=== PATIENT | female | born 1945 | race Caucasian/White ===

== ENCOUNTER 2019-12-10 09:48 | Outpatient (REF) | payer MEDICARE, SELFPAY ==
--- NOTE | 2019-12-10 | MM_ITS ---
EXAMINATION: MM SCREENING DIGITAL BREAST TOMOSYNTHESIS, BILATERAL CLINICAL INFORMATION: Screening. Asymptomatic. The lifetime risk of breast cancer based on the Tyrer-Cuzick Model is 5%. COMPARISON: Mammography: 07/25/2018, 07/21/2017, 07/19/2016 TECHNIQUE: Digital breast tomosynthesis is performed in both the craniocaudal and mediolateral oblique views along with computer-aided detection (CAD). Synthesized 2D images are generated from the tomosynthesis. FINDINGS: The breasts are heterogeneously dense, which may obscure small masses (ACR BI-RADS breast composition Category c). There are no significant masses, abnormal calcifications, or other abnormalities. The axilla and skin contours are unremarkable. IMPRESSION: No mammographic evidence of malignancy. ASSESSMENT: BI-RADS 1: Negative RECOMMENDATION: Routine annual mammography screening. This patient's information was entered into a reminder system with a target due date for their next mammogram.
== END 2019-12-10 09:49 | disposition home or self-care (01) ==
LOC: HO.MAMMO 09:48
PROVIDERS: PCP Internal Medicine Medical Oncology; Visit Provider Internal Medicine Medical Oncology
DX: Z12.31 Encounter for screening mammogram for malignant neoplasm of breast (principal)
CPT/HCPCS: 77063; 77067; 78014

== ENCOUNTER 2020-05-01 07:57 | Outpatient (REF) | payer MEDICARE, SELFPAY ==
[2020-05-01 11:10] LABS: MANUAL DIFF FLAG NO
[2020-05-01 11:31] LABS: Basophils Percent Auto 0.5 % (0-2); Eosinophils Percent Auto 0.3 % (0-4); Hematocrit 43.3 % (37-47); Hemoglobin 14.1 g/dl (12.0-16.0); Imm Gran Abs Auto 0.02 X10*3/uL (0.00-0.03); Imm Gran Pct Auto 0.3 % (0.0-0.4); Lymphocytes Absolute Auto 2.6 X10*3/uL (1.2-4.9); Lymphocytes Percent Auto 39.2 % (20-40); Mean Corpuscular HGB Conc 32.6 g/dl (31.0-35.0); Mean Corpuscular Hemoglobin 30.1 pg (27.0-33.0); Mean Corpuscular Volume 92.5 fL (80-98); Mean Platelet Volume 9.1 fL (9.4-12.3); Monocytes Absolute Auto 0.4 X10*3/uL (0.1-1.2); Monocytes Percent Auto 5.3 % (2-11); Neutrophils Absolute Auto 3.6 X10*3/uL (2.0-8.3); Neutrophils Percent Auto 54.4 % (45-73); Platelet Count 357 X10*3/uL (160-400); Red Blood Count 4.68 X10*6/uL (4.20-5.50); Red Cell Distribution Width 12.7 % (11.0-16.0); White Blood Count 6.6 X10*3/uL (4.8-10.8)
[2020-05-01 11:46] LABS: Cholesterol 227 mg/dL; HDL Cholesterol 70 mg/dL; LDL Cholesterol Calculated 86 mg/dl; Triglycerides 355 mg/dL
[2020-05-01 12:12] LABS: Free T4 (Free Thyroxine) 0.93 ng/dL (0.71-1.85); Thyroid Stimulating Hormone 4.17 uIU/mL (0.32-4.0)
== END 2020-05-01 07:58 | disposition home or self-care (01) ==
LOC: HO.HMGCLDS 07:57
PROVIDERS: PCP Internal Medicine Medical Oncology; Visit Provider Internal Medicine Medical Oncology
DX: E03.9 Hypothyroidism, unspecified (principal); E78.5 Hyperlipidemia, unspecified
CPT/HCPCS: 36415; 80061; 84439; 84443; 85025

== ENCOUNTER 2021-05-17 07:43 | Outpatient (REF) | payer MEDICARE, SELFPAY ==
[2021-05-17 11:35] LABS: MANUAL DIFF FLAG NO
[2021-05-17 11:49] LABS: Basophils Absolute Auto 0.1 X10*3/uL (0.0-0.2); Basophils Percent Auto 0.7 % (0-2); Eosinophils Absolute Auto 0.1 X10*3/uL (0.0-0.4); Eosinophils Percent Auto 0.7 % (0-4); Hematocrit 41.2 % (37.0-47.0); Hemoglobin 13.1 g/dl (12.0-16.0); Imm Gran Abs Auto 0.01 X10*3/uL (0.00-0.03); Imm Gran Pct Auto 0.1 % (0.0-0.4); Lymphocytes Absolute Auto 2.6 X10*3/uL (1.2-4.9); Lymphocytes Percent Auto 38.8 % (20-40); Mean Corpuscular HGB Conc 31.8 g/dl (31.0-35.0); Mean Corpuscular Hemoglobin 28.7 pg (27.0-33.0); Mean Corpuscular Volume 90.2 fL (80.0-98.0); Mean Platelet Volume 9.1 fL (9.4-12.3); Monocytes Absolute Auto 0.4 X10*3/uL (0.1-1.2); Neutrophils Absolute Auto 3.6 x10*3/uL (2.0-8.3); Neutrophils Percent Auto 53.7 % (45-73); Platelet Count 352 X10*3/uL (160-400); Red Blood Count 4.57 X10*6/uL (4.20-5.50); Red Cell Distribution Width 13.2 % (11.0-16.0); White Blood Count 6.7 X10*3/uL (4.8-10.8)
[2021-05-17 12:14] LABS: Alanine Aminotransferase 18 U/L (0-31); Alkaline Phosphatase 84 U/L (39-117); Anion Gap 16 (12-20); Aspartate Amino Transferase 20 U/L (5-31); Bilirubin Total 0.6 mg/dL (0.0-1.0); Blood Urea Nitrogen 10 mg/dL (9-16); Calcium 9.2 mg/dL (8.4-10.2); Carbon Dioxide 26 mmol/L (22-29); Chloride 105 mmol/L (96-108); Cholesterol 218 mg/dL; Estimated Glomerular Filt Rate > 60; Glucose Fasting 99 mg/dL (60-99); HDL Cholesterol 67 mg/dL; LDL Cholesterol Calculated 81 mg/dl; Potassium 4.1 mmol/L (3.3-5.1); Sodium 143 mmol/L (135-145); Triglycerides 350 mg/dL
[2021-05-17 12:36] LABS: Free T4 (Free Thyroxine) 0.91 ng/dL (0.71-1.85); Thyroid Stimulating Hormone 4.14 uIU/mL (0.32-4.0)
== END 2021-05-17 07:44 | disposition home or self-care (01) ==
LOC: HO.HMGCLDS 07:43
PROVIDERS: Visit Provider Internal Medicine Medical Oncology
DX: Z00.00 Encounter for general adult medical examination without abnormal findings (principal); E03.9 Hypothyroidism, unspecified
CPT/HCPCS: 36415; 80053; 80061; 84439; 84443; 85025

== ENCOUNTER 2021-06-15 09:26 | Outpatient (REF) | payer MEDICARE, SELFPAY ==
--- NOTE | ~2021-06-15 | MM_ITS ---
EXAMINATION: MM SCREENING DIGITAL BREAST TOMOSYNTHESIS, BILATERAL CLINICAL INFORMATION: Screening. Asymptomatic. The lifetime risk of breast cancer based on the Tyrer-Cuzick Model is 7%. COMPARISON: Mammography: 12/10/2019, 07/25/2018, 07/21/2017 TECHNIQUE: Digital breast tomosynthesis is performed in both the craniocaudal and mediolateral oblique views along with computer-aided detection (CAD). Synthesized 2D images are generated from the tomosynthesis. FINDINGS: The breasts are heterogeneously dense, which may obscure small masses (ACR BI-RADS breast composition Category c). There are no significant masses, abnormal calcifications, or other abnormalities. Parenchymal pattern is similar to prior studies. There is no developing density or architectural abnormality. No significant changes. MM/MM tomosynthesis screening BI IMPRESSION: No mammographic evidence of malignancy. ASSESSMENT: BI-RADS 1: Negative RECOMMENDATION: Routine annual mammography screening. This patient's information was entered into a reminder system with a target due date for their next mammogram.
== END 2021-06-15 09:27 | disposition home or self-care (01) ==
LOC: HO.MAMMO 09:26
PROVIDERS: PCP Internal Medicine Medical Oncology; Visit Provider Internal Medicine Medical Oncology
DX: Z12.31 Encounter for screening mammogram for malignant neoplasm of breast (principal)
CPT/HCPCS: 77063; 77067

== ENCOUNTER 2022-05-23 07:23 | Outpatient (REF) | payer MEDICARE, SELFPAY ==
[2022-05-23 11:36] LABS: MANUAL DIFF FLAG NO
[2022-05-23 11:43] LABS: Basophils Absolute Auto 0.1 X10*3/uL (0.0-0.2); Basophils Percent Auto 0.8 % (0-2); Eosinophils Absolute Auto 0.1 X10*3/uL (0.0-0.4); Eosinophils Percent Auto 0.9 % (0-4); Hematocrit 42.1 % (37.0-47.0); Hemoglobin 13.8 g/dl (12.0-16.0); Imm Gran Abs Auto 0.01 X10*3/uL (0.00-0.03); Imm Gran Pct Auto 0.2 % (0.0-0.4); Lymphocytes Absolute Auto 2.6 X10*3/uL (1.2-4.9); Lymphocytes Percent Auto 39.2 % (20-40); Mean Corpuscular HGB Conc 32.8 g/dl (31.0-35.0); Mean Corpuscular Hemoglobin 30.1 pg (27.0-33.0); Mean Corpuscular Volume 91.7 fL (80.0-98.0); Mean Platelet Volume 9.4 fL (9.4-12.3); Monocytes Absolute Auto 0.4 X10*3/uL (0.1-1.2); Monocytes Percent Auto 6.3 % (2-11); Neutrophils Absolute Auto 3.5 x10*3/uL (2.0-8.3); Neutrophils Percent Auto 52.6 % (45-73); Platelet Count 324 X10*3/uL (160-400); Red Blood Count 4.59 X10*6/uL (4.20-5.50); Red Cell Distribution Width 12.6 % (11.0-16.0); White Blood Count 6.6 X10*3/uL (4.8-10.8)
[2022-05-23 12:52] LABS: Alanine Aminotransferase 13 U/L (0-31); Alkaline Phosphatase 81 U/L (39-117); Anion Gap 15 (12-20); Aspartate Amino Transferase 17 U/L (5-31); Bilirubin Total 0.8 mg/dL (0.0-1.0); Blood Urea Nitrogen 11 mg/dL (9-16); Carbon Dioxide 27 mmol/L (22-29); Chloride 105 mmol/L (96-108); Cholesterol 217 mg/dL; Estimated Glomerular Filt Rate > 60; Glucose Fasting 87 mg/dL (60-99); HDL Cholesterol 67 mg/dL; LDL Cholesterol Calculated 93 mg/dl; Potassium 3.9 mmol/L (3.3-5.1); Sodium 143 mmol/L (135-145); Total Protein 6.5 g/dL (6.5-8.0); Triglycerides 286 mg/dL
== END 2022-05-23 07:24 | disposition home or self-care (01) ==
LOC: HO.HMGCLDS 07:23
PROVIDERS: PCP Internal Medicine Medical Oncology; Visit Provider Internal Medicine Medical Oncology
DX: E03.9 Hypothyroidism, unspecified (principal); M85.80 Other specified disorders of bone density and structure, unspecified site; E66.3 Overweight; E78.5 Hyperlipidemia, unspecified
CPT/HCPCS: 36415; 80053; 80061; 82306; 85025

== ENCOUNTER 2023-04-06 06:18 | Outpatient (REF) | payer MEDICARE, SELFPAY ==
[2023-04-12 19:49] LABS: Acetylcholine Receptor Binding <0.30 nmol/L
[2023-04-12 20:04] LABS: Acetylcholine Recept. Blocking <15 (<15)
== END 2023-04-06 06:19 | disposition home or self-care (01) ==
LOC: HO.LAB 06:18
PROVIDERS: PCP Internal Medicine Medical Oncology; Visit Provider Psychiatry & Neurology Neurology
DX: H53.2 Diplopia (principal)
CPT/HCPCS: 36415; 86041; 86042; 86043

== ENCOUNTER 2023-05-22 08:51 | Outpatient (REF) | payer MEDICARE, SELFPAY | END 2023-05-22 08:52 | disposition home or self-care (01) | LOC: HO.MAMMO 08:51 | PROVIDERS: PCP Internal Medicine Medical Oncology; Visit Provider Internal Medicine Medical Oncology | DX: Z12.31 Encounter for screening mammogram for malignant neoplasm of breast (principal) | CPT/HCPCS: 77063; 77067 ==

== ENCOUNTER → 2023-05-22 09:15 | Outpatient (BNV) | payer MEDICARE, SELFPAY | PROVIDERS: PCP Internal Medicine Medical Oncology; Visit Provider Radiology Diagnostic Radiology | DX: Z12.31 Encounter for screening mammogram for malignant neoplasm of breast (principal) | CPT/HCPCS: 77063; 77067 ==

== ENCOUNTER 2023-05-25 06:07 | Outpatient (REF) | payer MEDICARE, SELFPAY ==
[2023-05-25 06:16] LABS: MANUAL DIFF FLAG NO
[2023-05-25 07:32] LABS: Basophils Absolute Auto 0.1 X10*3/uL (0.0-0.2); Basophils Percent Auto 0.9 % (0-2); Eosinophils Absolute Auto 0.1 X10*3/uL (0.0-0.4); Eosinophils Percent Auto 0.9 % (0-4); Hematocrit 37.1 % (37.0-47.0); Hemoglobin 12.1 g/dl (12.0-16.0); Imm Gran Abs Auto 0.02 X10*3/uL (0.00-0.03); Imm Gran Pct Auto 0.3 % (0.0-0.4); Lymphocytes Absolute Auto 2.9 X10*3/uL (1.2-4.9); Lymphocytes Percent Auto 43.4 % (20-40); Mean Corpuscular HGB Conc 32.6 g/dl (31.0-35.0); Mean Corpuscular Hemoglobin 28.5 pg (27.0-33.0); Mean Corpuscular Volume 87.5 fL (80.0-98.0); Mean Platelet Volume 8.9 fL (9.4-12.3); Monocytes Absolute Auto 0.5 X10*3/uL (0.1-1.2); Neutrophils Absolute Auto 3.2 x10*3/uL (2.0-8.3); Neutrophils Percent Auto 47.5 % (45-73); Platelet Count 331 X10*3/uL (160-400); Red Blood Count 4.24 X10*6/uL (4.20-5.50); White Blood Count 6.7 X10*3/uL (4.8-10.8)
[2023-05-25 07:48] LABS: Alanine Aminotransferase 14 U/L (0-31); Albumin Level 3.7 g/dL (3.5-5.0); Alkaline Phosphatase 76 U/L (39-117); Anion Gap 13 (12-20); Aspartate Amino Transferase 15 U/L (5-31); Bilirubin Total 0.5 mg/dL (0.0-1.0); Blood Urea Nitrogen 12 mg/dL (9-16); Calcium 8.9 mg/dL (8.4-10.2); Carbon Dioxide 27 mmol/L (22-29); Chloride 107 mmol/L (96-108); Cholesterol 199 mg/dL (<200); Estimated Glomerular Filt Rate > 60; Glucose Fasting 86 mg/dL (60-99); HDL Cholesterol 74 mg/dL (>40); LDL Cholesterol Calculated 88 mg/dL (<100); Sodium 143 mmol/L (135-145); Total Protein 6.6 g/dL (6.5-8.0); Triglycerides 187 mg/dL (<150)
[2023-05-25 07:52] LABS: Thyroid Stimulating Hormone 4.35 uIU/mL (0.32-4.0)
== END 2023-05-25 06:08 | disposition home or self-care (01) ==
LOC: HO.LAB 06:07
PROVIDERS: PCP Internal Medicine Medical Oncology; Visit Provider Internal Medicine Medical Oncology
DX: Z00.00 Encounter for general adult medical examination without abnormal findings (principal); E03.9 Hypothyroidism, unspecified; E78.5 Hyperlipidemia, unspecified; E66.3 Overweight
CPT/HCPCS: 36415; 80053; 80061; 84443; 85025

== ENCOUNTER 2023-06-13 06:08 | Outpatient (REF) | payer MEDICARE, SELFPAY ==
[2023-06-14 09:19] LABS: Lyme Abs Screen <0.90 index
== END 2023-06-13 06:09 | disposition home or self-care (01) ==
LOC: HO.LAB 06:08
PROVIDERS: PCP Internal Medicine Medical Oncology; Visit Provider Internal Medicine Medical Oncology
DX: T14.8XXA Other injury of unspecified body region, initial encounter (principal); W57.XXXA Bitten or stung by nonvenomous insect and other nonvenomous arthropods, initial encounter; Y93.9 Activity, unspecified; Y92.9 Unspecified place or not applicable; Y99.9 Unspecified external cause status
CPT/HCPCS: 36415; 86617; 86618

== ENCOUNTER 2023-07-01 23:30 | Inpatient (IN) | payer MEDICARE, SELFPAY ==
--- NOTE | ~2023-07-01 | CT_ITS ---
EXAMINATION: CT ABDOMEN AND PELVIS WITH CONTRAST CLINICAL INFORMATION: Pain. History of Crohn's disease. Concern for bowel obstruction. COMPARISON: None available. TECHNIQUE: Multidetector volumetric images were obtained from the superior aspect of the liver through the pubic symphysis following administration 85 mL of Omnipaque 350 intravenous contrast. Sagittal and coronal reformatted images were obtained on the technologist's workstation. Oral contrast: No This CT examination was performed using dose optimization techniques as appropriate, variously including the following: *Automated exposure control *Adjustment of mA and/or kV according to patient size (this includes techniques or standardized protocols for targeted exams where dose is matched to indication/reason for exam; i.e. extremities or head) *Use of iterative reconstruction technique DLP: 477 mGy-cm FINDINGS: LUNG BASES: There is scarring and/or subsegmental atelectasis at the right lung base. LIVER, GALLBLADDER, AND BILIARY TREE: There are multiple scattered hepatic hypodensities measuring up to 2.6 cm left lobe the liver likely multiple cysts. There is no intrahepatic biliary duct dilatation. The gallbladder is unremarkable with no evidence of radiopaque gallstones, gallbladder wall thickening, or obvious pericholecystic inflammatory changes. PANCREAS: Unremarkable. SPLEEN: Unremarkable. ADRENAL GLANDS: Unremarkable. KIDNEYS AND URETERS: The kidneys are normal in size, shape, and attenuation. No hydronephrosis, hydroureter, or calculi seen. No perinephric stranding. There are a few scattered bilateral subcentimeter hypodensities too small to characterize but likely small cysts. BLADDER: Unremarkable. GASTROINTESTINAL TRACT: There are distended/dilated mid to distal small bowel loops containing fluid and some stool-like material distally extending to the level of a thickened terminal small bowel within the pelvis. The appendix is not identified. ABDOMINAL WALL: No significant hernia is appreciated. LYMPH NODES: Normal. VASCULAR: Unremarkable. PELVIC VISCERA: Pelvic organs are unremarkable. There is a small amount of free fluid within the pelvis. OSSEOUS STRUCTURES: There is diffuse thoracolumbar disc degenerative change. CT/CT abdomen pelvis w IV con IMPRESSION: 1. Findings consistent with partial distal small bowel obstruction with transition point in the pelvis. There is a thickened terminal small bowel loop within the pelvis likely secondary to patient's known Crohn's disease.. 2. Multiple hepatic hypodensities likely cysts. 3. Small amount of free fluid within the pelvis. Fleischner guidelines were followed.
[2023-07-01] MEDS: Ondansetron ODT 4 MG TAB.RAPDIS TRANSLINGU (23:39)
[2023-07-01 23:40] VITALS: BP 134/64; PULSE 89; RESP 16; TEMP 36.2; O2SAT 99; BMI 27.4
[2023-07-01 23:51] LABS: Basophils Percent Auto 0.4 % (0-2); Eosinophils Percent Auto 0.3 % (0-4); Hematocrit 45.6 % (37.0-47.0); Hemoglobin 14.9 g/dl (12.0-16.0); Imm Gran Abs Auto 0.02 X10*3/uL (0.00-0.03); Imm Gran Pct Auto 0.2 % (0.0-0.4); Lymphocytes Absolute Auto 0.4 X10*3/uL (1.2-4.9); Lymphocytes Percent Auto 3.2 % (20-40); MANUAL DIFF FLAG NO; Mean Corpuscular HGB Conc 32.7 g/dl (31.0-35.0); Mean Corpuscular Hemoglobin 27.7 pg (27.0-33.0); Mean Corpuscular Volume 84.8 fL (80.0-98.0); Mean Platelet Volume 8.8 fL (9.4-12.3); Monocytes Absolute Auto 0.8 X10*3/uL (0.1-1.2); Monocytes Percent Auto 6.9 % (2-11); Neutrophils Absolute Auto 9.6 x10*3/uL (2.0-8.3); Platelet Count 433 X10*3/uL (160-400); Red Blood Count 5.38 X10*6/uL (4.20-5.50); Red Cell Distribution Width 13.6 % (11.0-16.0); White Blood Count 10.8 X10*3/uL (4.8-10.8)
[2023-07-02] VITALS (9 sets, daily range): BP systolic 95–117; BP diastolic 46–57; PULSE 82–88; RESP 14–20; TEMP 36.3–36.9; O2SAT 93–96; BMI 27.4
--- NOTE | 2023-07-02 | ED.NAVMDI ---
HPI - Nausea/Vomiting/Diarrhea General Chief complaint: Nausea/Vomiting/Diarrhea Stated complaint: vomiting Time Seen by Provider: 07/01/23 23:47 Source: patient and family Mode of arrival: ambulatory Limitations: no limitations History of Present Illness HPI Narrative: Patient comes to the emergency room accompanied by her . Patient states that for the last 7 hours, patient has had constant abdominal pain in the epigastric/periumbilical area. Patient has been vomiting every 15-20 minutes for the last 6 hours. Patient denies fever chills. Patient states that 4 years ago she had a surgery for Crohn's disease. Patient denies any hematuria or dysuria. Patient states that she believes she has not passed gas for a few hours. Related Data Allergies Allergy/AdvReac Type Severity Reaction Status Date / Time No Known Allergies Allergy Verified 07/01/23 23:42 Review of Systems Review of Systems: Constitutional : No Weight loss, No Fever, No Chills, No Night Sweats, No Fatigue, No Malaise ENT/Mouth : No Hearing loss, No Ear Pain, No Nasal Congestion, No Sinus Pain, No Hoarseness, No sore throat, No Rhinorrhea, No Swallowing Difficulty Eyes: No Eye Pain, No Swelling, No Redness, No Foreign Body, No Discharge, No Vision Changes Cardiovascular : No Chest Pain, No SOB, No Dyspnea on Exertion, No Orthopnea, No Edema, No Palpitations Respiratory : No Cough, No Sputum, No Wheezing, No Smoke Exposure, No Dyspnea Gastrointestinal : Complaining of nausea and vomiting, no diarrhea or constipation, complaining of periumbilical pain Genitourinary : no irregular bleeding, No Dysuria, No Urinary Frequency, No Hematuria, No Urinary Incontinence, No Urgency, No Flank Pain, No Urinary Flow Changes, No Hesitancy Musculoskeletal : No joint pain, No Myalgias, No Joint Swelling Skin : No Skin Lesions, No rash Neuro : No Weakness, No Numbness, No Paresthesias, No Loss of Consciousness, No Dizziness, No Headache Psych : No Anxiety/Panic, No Depression, No SI/HI/AH/VH, No Social Issues, Heme/Lymph: No Bruising, No Bleeding,No Lymphadenopathy Endocrine : No Polyuria, No Polydipsia, No Temperature Intolerance PMFSH Past Medical History Medical History Crohn's disease Surgical History (Updated 07/02/23 @ 00:01 by Marielena Riley MD) History of appendectomy Social History Social History Advance Directives: Yes Advance Directives Information Provided: No Advance Directives on File: No Do you have a plan to hurt others: No Plan Physical Exam Vital Signs: Vital Signs: Last Vital Signs Temp 97.1 F 07/01/23 23:40 Pulse 89 07/01/23 23:40 Resp 18 07/02/23 00:29 BP 134/64 07/01/23 23:40 Pulse Ox 99 07/01/23 23:40 O2 Del Method Room Air 07/01/23 23:40 BMI result Body Mass Index 27.4 Const: Other: Appearance: Alert. Oriented X3. No acute distress. Eyes: Pupils equal, round and reactive to light. ENT: Pharynx normal. Neck: Normal inspection. Neck supple. No lymph nodes noted. No crepitus CVS: Normal heart rate and rhythm. Pulses normal. Normal S1 and S2 Respiratory: No respiratory distress. Breath sounds normal. No Wheezing. No rales Abdomen: Soft, discomfort to palpation in the periumbilical area, no rebound, no guarding Skin: Skin warm and dry. Normal skin color. Normal skin turgor. Extremities: No lower extremity edema. No Lacerations. No Rash Neuro: Oriented X 3. No motor deficit. No sensory deficit. Moving all extremities. No slurred speech. CN 2 through 12 grossly intact Psych: calm, cooperative, normal affect Course Course Course Narrative: -patient receiving IV fluids, already received p.o. Zofran. Patient now getting IV Compazine, morphine -CT scan of the abdomen pending Medications Administered Discontinued Medications Generic Name Dose Route Start Last Admin Trade Name Freq PRN Reason Stop Dose Admin Sodium Chloride 1,000 mls @ 999 mls/hr 07/01/23 23:56 07/02/23 00:37 Ns IVCONT 07/02/23 00:56 999 mls/hr .Q1H1M ONE Administration Iohexol 85 ml 07/02/23 00:51 07/02/23 00:51 Iohexol 350 Mg/Ml 100 Ml Infus..Btl IV 07/02/23 00:52 85 ml ONCE ONE Administration Morphine Sulfate 4 mg 07/01/23 23:56 07/02/23 00:29 Morphine Sulfate 4 Mg/Ml Cartridge IVPUSH 07/01/23 23:57 4 mg ONCE ONE Administration Protocol Ondansetron HCl 4 mg 07/01/23 23:36 07/01/23 23:39 Ondansetron Odt 4 Mg Tab.Rapdis TRANSLINGU 07/01/23 23:37 4 mg ONCE ONE Administration Prochlorperazine Edisylate 10 mg 07/01/23 23:56 07/02/23 00:29 Prochlorperazine Edisylate 10 Mg/2 Ml Vial IVPUSH 07/01/23 23:57 10 mg ONCE ONE Administration Medical Decision Making Medical Decision Making [facility] Narrative: -my interpretation of labs: Normal hematology, chemistry shows an anion gap that is slightly elevated, patient receiving IV fluids. -my interpretation of CT scan of the abdomen: Multiple cysts, seems that there is a small-bowel obstruction -radiology report: Partial SBO -patient states that she feels much better after IV medication treatment. But still has pain, patient given 1 more dose of morphine. I discussed the patient with Dr. Jean from the surgery team, patient being admitted Differential Diagnosis Differential Diagnoses: The differential diagnosis associated with the presentation includes (Crohn's exacerbation, a small bowel obstruction, diverticulitis) Admission/Observation Consideration of admission/observation: Escalation of care including admission/observation considered Consult Healthcare Provider Management of the patient was discussed with: Hospitalist Lab Data [facility] Lab Attestation statement: I reviewed the patient's lab results. 07/01/23 23:45 07/01/23 23:45 Labs: Lab Results 07/01/23 Range/Units 23:45 WBC 10.8 (4.8-10.8) X10*3/uL RBC 5.38 D (4.20-5.50) X10*6/uL Hgb 14.9 D (12.0-16.0) g/dl Hct 45.6 D (37.0-47.0) % MCV 84.8 (80.0-98.0) fL MCH 27.7 (27.0-33.0) pg MCHC 32.7 (31.0-35.0) g/dl RDW 13.6 (11.0-16.0) % Plt Count 433 H D (160-400) X10*3/uL MPV 8.8 L (9.4-12.3) fL Immature Gran % (Auto) 0.2 (0.0-0.4) % Neut % (Auto) 89.0 H (45-73) % Lymph % (Auto) 3.2 L (20-40) % [place] % (Auto) 6.9 (2-11) % Eos % (Auto) 0.3 (0-4) % Baso % (Auto) 0.4 (0-2) % Lymph # (Auto) 0.4 L (1.2-4.9) X10*3/uL [place] # (Auto) 0.8 (0.1-1.2) X10*3/uL Eos # (Auto) 0.0 (0.0-0.4) X10*3/uL Baso # (Auto) 0.0 (0.0-0.2) X10*3/uL Abs Immat Gran (auto) 0.02 (0.00-0.03) X10*3/uL Absolute Neuts (auto) 9.6 H (2.0-8.3) x10*3/uL Absolute Nucleated RBC 0.000 (0.0-0.012) X10*3/uL Nucleated RBC % (auto) 0.0 (0.0-0.2) /100WBC Sodium 141 (135-145) mmol/L Potassium 4.1 (3.3-5.1) mmol/L Chloride 99 (96-108) mmol/L Carbon Dioxide 23 (22-29) mmol/L Anion Gap 23 H (12-20) BUN 17 H (9-16) mg/dL Creatinine 1.08 (0.5-1.4) mg/dL Estim Creat Clear Calc 40.6 Estimated GFR 49 Random Glucose 201 H (60-115) mg/dL Calcium 9.9 D (8.4-10.2) mg/dL Total Bilirubin 0.9 (0.0-1.0) mg/dL AST 18 (5-31) U/L ALT 16 (0-31) U/L Alkaline Phosphatase 92 (39-117) U/L Total Protein 7.8 (6.5-8.0) g/dL Albumin 4.4 (3.5-5.0) g/dL Lipase 32 (8-78) U/L Independent Interpretation I performed an independent interpretation of an: CT Scan Radiology Impression Discussion of test interpretation with radiology: I have reviewed the radiologist's reading. Radiologist Impression: FINDINGS: LUNG BASES: There is scarring and/or subsegmental atelectasis at the right lung base. LIVER, GALLBLADDER, AND BILIARY TREE: There are multiple scattered hepatic hypodensities measuring up to 2.6 cm left lobe the liver likely multiple cysts. There is no intrahepatic biliary duct dilatation. The gallbladder is unremarkable with no evidence of radiopaque gallstones, gallbladder wall thickening, or obvious pericholecystic inflammatory changes. PANCREAS: Unremarkable. SPLEEN: Unremarkable. ADRENAL GLANDS: Unremarkable. KIDNEYS AND URETERS: The kidneys are normal in size, shape, and attenuation. No hydronephrosis, hydroureter, or calculi seen. No perinephric stranding. There are a few scattered bilateral subcentimeter hypodensities too small to characterize but likely small cysts. BLADDER: Unremarkable. GASTROINTESTINAL TRACT: There are distended/dilated mid to distal small bowel loops containing fluid and some stool-like material distally extending to the level of a thickened terminal small bowel within the pelvis. The appendix is not identified. ABDOMINAL WALL: No significant hernia is appreciated. LYMPH NODES: Normal. VASCULAR: Unremarkable. PELVIC VISCERA: Pelvic organs are unremarkable. There is a small amount of free fluid within the pelvis. OSSEOUS STRUCTURES: There is diffuse thoracolumbar disc degenerative change. CT/CT abdomen pelvis w IV con IMPRESSION: 1. Findings consistent with partial distal small bowel obstruction with transition point in the pelvis. There is a thickened terminal small bowel loop within the pelvis likely secondary to patient's known Crohn's disease.. 2. Multiple hepatic hypodensities likely cysts. 3. Small amount of free fluid within the pelvis. Critical Care Time Critical Care Time Critical Care Time: Yes Total Critical Care Time: 75 Attestation: I have personally provided critical care time. Time includes review of lab data, radiology results, discussion with consultants, and monitoring for potential decompensation. Intervention performed as documented. Discharge Plan Discharge Clinical Impression: Partial obstruction of small intestine Patient Disposition: Admitted As Inpatient Print Language: [place]ian
--- OUTSIDE RECORDS SUMMARY | 2023-07-02 00:05 | XMS_ITS | Patient Health Record ---
Author Organization Jeff Carias III, MD Address [address] [place] [address] Care Team Providers Care Account Assistant Name Role Phone Jeff Carias Primary Care Provider ALLERGIES Allergen (clinical drug ingredient) Drug/Non Drug Allergy documented on EMR Reaction Allergy Type Onset Date Status No Known Drug Allergy Unknown Drug Allergy Active RESULTS Component Value Reference Range Notes MM tomosynthesis screening B I (Not yet reviewed by provider) Interpretation: Performing Lab: Notes/Report: [address] [place] [address] Mammography Report Signed with Addenda Patient: Oriana Hinds MR#: [id number] 31 : 1945 Acct:[id number] Age/Sex: 77 / F ADM Date: 05/22/23 Loc: HO.MAMMO Attending Dr: Jeff Carias MD Ordering Physician: Jeff Carias MD Results: 1Negativ e Date of Service: 05/22/23 Follow Up: 1 Year From Orig ina Mammogram Procedure(s): MM tomosynthesis screening BI Accession Number(s): [id number] cc: Jeff Carias MD ADDENDUM ADDENDUM: Due to a software issue, this mammogram has been reviewed a second time. The findings and recommendations remain the same. OVERALL ASSESSMENT: BI-RADS 1 - Negative RECOMMENDATION: 1 year F/U Addendum Dictated By: Suad Luu MD Addendum Signed By: <Electronically signed by Suad Luu MD in OV> 06/05/23 1547 Addendum Cosigned By: DD/ TD/TT: / EXAMINATION: MM SCREENING DIGITAL BREAST TOMOSYNTHESIS, BILATERAL CLINICAL INFORMATION: Screening. Asymptomatic. COMPARISON: Mammography: This study is compared with prior exams dating back to 2018. TECHNIQUE: Digital breast tomosynthesis is performed in both the craniocaudal and mediolateral oblique views along with computer-aided detection (CAD). Synthesized 2D images are generated from the tomosynthesis. FINDINGS: The breasts are heterogeneously dense, which may obscure small masses (ACR BI-RADS breast composition Category c). There are no significant masses, abnormal calcifications, or other abnormalities. MM/MM tomosynthesis screening BI IMPRESSION: No mammographic evidence of malignancy. ASSESSMENT: BI-RADS BI-RADS 1 - Negative RECOMMENDATION: Routine annual mammography screening. 1 year F/U This examination should not preclude the clinical evaluation of a suspicious palpable abnormality. This patient's information was entered into a reminder system with a target due date for their next mammogram. Dictated By: Suad Luu MD Signed By: <Electronically signed by Suad Luu MD in OV> 06/05/23 1104 DD/ 0915 TD/TT: Black Pickler: Complete Blood Count Auto Di ff Reviewed date:05/27/2023 01:40:45 PM Interpretation: Performing Lab:[facility], [address] [place] [phone] Notes/Report: White Blood Count 6.7 4.8-10.8 X10*3/uL Red Blood Count 4.24 4.20-5.50 X10*6/uL Hemoglobin 12.1 12.0-16.0 g/dl Hematocrit 37.1 37.0-47.0 % Mean Corpuscular Volume 87.5 80.0-98.0 fL Mean Corpuscular Hemoglobin 28.5 27.0-33.0 pg Mean Corpuscular HGB Conc 32.6 31.0-35.0 g/dl Red Cell Distribution Width 13.0 11.0-16.0 % Platelet Count 331 160-400 X10*3/uL Mean Platelet Volume 8.9 9.4-12.3 fL Neutrophils Percent Auto 47.5 45-73 % Imm Gran Pct Auto 0.3 0.0-0.4 % Lymphocytes Percent Auto 43.4 20-40 % Monocytes Percent Auto 7.0 2-11 % Eosinophils Percent Auto 0.9 0-4 % Basophils Percent Auto 0.9 0-2 % NRBC Pct Auto 0.0 0.0-0.2 /100WBC Neutrophils Absolute Auto 3.2 2.0-8.3 x10*3/u L Imm Gran Abs Auto 0.02 0.00-0.03 X10*3/uL Lymphocytes Absolute Auto 2.9 1.2-4.9 X10*3/u L Monocytes Absolute Auto 0.5 0.1-1.2 X10*3/uL Eosinophils Absolute Auto 0.1 0.0-0.4 X10*3/u L Basophils Absolute Auto 0.1 0.0-0.2 X10*3/uL NRBC Abs Auto 0.000 0.0-0.012 X10*3/uL Comprehensive [place]. Panel Fa st Reviewed date:05/27/2023 01:40:45 PM Interpretation: Performing Lab:[address] [address] Notes/Report: Sodium 143 135-145 mmol/L Potassium 4.0 3.3-5.1 mmol/L Chloride 107 96-108 mmol/L Carbon Dioxide 27 22-29 mmol/L Anion Gap 13 12-20 Blood Urea Nitrogen 12 9-16 mg/dL Creatinine 0.76 0.5-1.4 mg/dL Estimated Glomerular Filt Rate > 60 NOTE: For -Honduran individuals, multiply the result by 1.210. Chronic Kidney Disease: Estimated GFR < 60 mL/min/1.73m2 Severe Kidney Disease: Estimated GFR < 15 mL/min/1.73m2 Glucose Fasting 86 60-99 mg/dL Calcium 8.9 8.4-10.2 mg/dL Bilirubin Total 0.5 0.0-1.0 mg/dL Aspartate Amino Transferase 15 5-31 U/L Alanine Aminotransferase 14 0-31 U/L Total Protein 6.6 6.5-8.0 g/dL Albumin Level 3.7 3.5-5.0 g/dL Alkaline Phosphatase 76 39-117 U/L Lipid Panel Reviewed date:05/27/2023 01:40:45 PM Interpretation: Performing Lab:[address] [address] Notes/Report: Triglycerides 187 <150 mg/dL Desirable Triglyceride: less than 150 mg/dL Borderline High Triglyceride 150-199 mg/dL High Triglyceride: 200-499 mg/dL Very High Triglyceride: greater than or equal to 5OO mg/dL Cholesterol 199 <200 mg/dL Desirable Cholesterol: less than 200 mg/dL Borderline High Cholesterol: 200-239 mg/dL High Cholesterol: greater than 239 mg/dL LDL Cholesterol Calculated 88 <100 mg/dL Desirable LDL: less than 100 mg/dL Near Optimal/Above Optimal LDL: 110-129 mg/dL Borderline High LDL: 130-159 mg/dL High LDL: 160-189 mg/dL Very High LDL: greater than or equal to 190 mg/dL HDL Cholesterol 74 >40 mg/dL Desirable HDL: greater than 40 mg/dL Note: This HDL assay may give artificially low results in patients with liver disease. Thyroid Stimulating Hormone Reviewed date:05/27/2023 01:40:45 PM Interpretation: Performing Lab:[facility], [address] [place] [id number] Notes/Report: Thyroid Stimulating Hormone 4.35 0.32-4.0 uIU/ mL Note: A sustained TSH level above 2.5 uIU/mL may warrant further investigation. TSH 3rd Generation ([employer]) URINE DIP STICK Reviewed date:06/05/2023 09:48:00 AM Interpretation: Performing Lab: Notes/Report: SG 1.010 1.005 - 1.025 pH 5.0 5.0 - 9.0 MAIA 70 Negative - NIT Negative Negative - PRO 15 Negative - Trace GLU Negative Negative - KET Negative Negative - UBG 0.2 0.1 - 1.8 DARBY Negative 0.2 - 1.3 BLD Negative Negative - Menstrating No Lyme IgG/IgM w/reflex to WB (Not yet reviewed by provider) Interpretation: Performing Lab:[address] [address] Notes/Report: Lyme Abs Screen <0.90 Index Interpretation ----- < 0.90 Negative 0.90-1.09 Equivocal > 1.09 Positive As recommended by the Food and Drug Administration (FDA), all samples with positive or equivocal results in a Borrelia burgdorferi antibody screen will be tested using a blot method. Positive or equivocal screening test results should not be interpreted as truly positive until verified as such using a supplemental assay (e.g., B. burgdorferi blot). The screening test and/or blot for B. burgdorferi antibodies may be falsely negative in early stages of Lyme disease, including the period when erythema migrans is apparent. THIS TEST WAS PERFORMED AT: [facility] [address] [address] HOLLY WEAVER MD Lyme Blot TNP REASON FOR REFERRAL Reason Consult and Treat Ac [facility] Diplopia Diagnosis 1 Diplopia (H53.2) Referral Organization Jeff Carias III, MD Referring Provider First Name Jeff Referring Provider Last Name Aretha Referring Provider Speciality Internal M edicine Referred Provider Harry Costa Referred Provider Specialty Ophthalmolog y General Notes AmanCodi CATTLE RANCHER 01/05 02:08:55 PM EST > ref/demo/progress note faxed to Dr Costa office pt has appt on 02/03/2023 9:24am Referral Priority Routine Referral Appointment Date 02/03/2023 Reason Consult and Treat Acute Diplopia Diagnosis 1 Diplopia (H53.2) Referral Organization Jeff Carias III, MD Referring Provider First Name Jeff Referring Provider Last Name Aretha Referring Provider Speciality Internal edicine Referred Provider Mike Ruiz Referred Provider Specialty Neurology General Notes Thania Alves 02/07 10:57:43 AM > Faxed with willa progress note and will send MRI separate can not attach, Thania Alves 02/23/2023 02:25:09 PM > Schedule with Dr. Ruiz, patient called and made aware. also letter sent in the mail Referral Priority Routine Referral Appointment Date 04/05/2023 MEDICATIONS Medication SIG (Take, Route, Fr equency, Duration) Notes Start Date End Date Status Fish Oil 1200 MG 2 capsules Orally Once a day Active Vitamin D 2000 UNIT as directed Orally Active Multivitamins Orally Active IMMUNIZATIONS Vaccine Route Administration Date Status Comme nts COVID- 19 Vaccine Unknown 06/04/2020 Administered COVID- 19 Vaccine Unknown 05/27/2021 Administered COVID- 19 Vaccine Unknown 07/02/2020 Administered moder na SHINGRIX Unknown 08/31/2021 Administered SHINGRIX Unknown 11/01/2021 Administered SOCIAL HISTORY Tobacco Use: Social History Observation Description Date Details (start date - stop date) Never Smoker NA - NA Sex Assigned At : Social History Observation Description Sex Assigned At Female Tobacco Use/Smoking Question Answer Notes Patient is a nonsmoker Additional Findings: Tobacco Non-User Aggressive non-smoker Alcohol Screen Question Answer Notes Did you have a drink containing alcohol in the p ast year? No Points 0 Interpretation Negative PROBLEMS Problem Type ICD Code Onset Dates Problem Status W/U Status Risk SNOMED Code Notes Problem Hyperlipidemia (E78.5) Active confirmed 92504244 Her lipids hav e improved since the last determination. Her total cholesterol is slightly out of range. Her triglycerides have improved but are still elevated. We reviewed diet today. Problem Hypothyroidism (E03.9) Active confirmed 10575047 Her thyroid function tests have been in the normal range with the TSH 4.14. No change in her regimen was made. She will continue on her current dose. Problem Diplopia (H53.2) Active confirmed Diplo ramu (51854207) The MRI of the brain is normal and she has been to the oophthalmologist and is wearing a prism.The chest for myasthenia gravis is negative. I strongly recommend that she return to neurology for further evaluation but she has refused repeatedly today. I will see her back in several weeks. Her diplopia is improving. If it worsens she will call me at once. Problem Osteopenia (M85.80) Active confirmed 31 6505179 She has had no apparent fractures. She will continue on her current calcium tablets. Problem Over weight (E66.3) Active confirmed 23 1627842 Her weight is stable at 148 pounds and a body mass index 27. I recommend a gradual slow and steady weight loss of 1/2 pound per week through a diet restricted in calories. Problem Hypertriglyceridemi a (E78.1) Active confirmed [id number] Her triglyceri riddhi are elevated. He says she is avoiding dietary sources of triglycerides and red meat. She will educate herself the dietary sources of lipids. I recommended that she is is 10 pounds over the next 6 months and have these values repeated in another office visit. She treated herself. Problem Eczema (L30.9) Active confirmed 0577318 0 Examination of the skin showed very little eczema today. This problem is inactive. Problem Crohns disease (K50.90) Active confirmed 99432714 Her inflammato ry bowel diseases tolerable unstable. She remains under the care of Dr. Steiner, her regional operations director Her last colonoscopy was in 2011 and was unremarkable except for the Crohn's disease. Problem Menopausal state (N95.1) Active confirmed [id number] She has not experienced any vaginal bleeding. 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 hns disease K50.90 ; Menopausal state N95.1 ; Eczema L30.9 ; Hyperlipidemia E78.5 ; Hypothyroidism E03.9 and Over weight E66.3 Jeff Carias III, MD [address] [place] [address] [place] [address] 07/27/2022 Jeff Carias Hypothyroidism E03.9 ; Labyrinthitis of both ears H83.03 ; Crohns disease K50.90 ; Hyperlipidemia E78.5 ; Osteopenia M85.80 and Over weight E66.3 Jeff Carias III, MD [address] [place] [address] [place] [address] 09/14/2022 Jeff Carias III, MD [address] [place] [address] [place] [address] 02/03/2023 Jeff Carias III, MD [address] [place] [address] [place] [address] 02/10/2023 Jeff Carias Diplopia H53.2 ; Hyperlipidemia E78.5 ; Over weight E66.3 ; Osteopenia M85.80 and Hypothyroidism E03.9 Jeff Carias III, MD [address] [place] [address] [place] [address] 01/31/2023 Jeff Carias Over weight E66.3 ; Diplopia H53.2 ; Crohns disease K50.90 ; Hypothyroidism E03.9 ; Osteopenia M85.80 and Hyperlipidemia E78.5 Jeff Carias III, MD [address] [place] [address] [place] [address] 11/23/2022 Jeff Carias III, MD [address] [place] [address] [place] [address] 06/05/2023 Jeff Carias III, MD [address] [place] [address] [place] [address] 06/12/2023 Jeff Carias Tick bite W57.XXXA Jeff Carias III, MD [address] [place] [address] [place] [address] 06/22/2023 Jeff Carias III, MD [address] [place] [address] [place] [address] 08/24/2022 Jeff Carias Over weight E66.3 ; Menopausal state N95.1 ; Eczema L30.9 ; Hyperlipidemia E78.5 ; Hypothyroidism E03.9 ; Osteopenia M85.80 and Hypertriglyceridemia E78.1 Jeff Carias III, MD [address] [place] [address] [place] [address] 02/01/2023 Jeff Carias Diplopia H53.2 ; Ove r weight E66.3 ; Hyperlipidemia E78.5 ; Osteopenia M85.80 ; Hypothyroidism E03.9 and Crohns disease K50.90 ASSESSMENTS Encounter Date Diagnosis Assessment Notes Treatment Notes Treatment Clinical Notes 06/05/2023 Diplopia (ICD-10 - H53.2) The MRI of the brain is normal and she has been to the oophthalmologist and is wearing a prism.The chest for myasthenia gravis is negative. I strongly recommend that she return to neurology for further evaluation but she has refused repeatedly today. I will see her back in several weeks. Her diplopia is improving. If it worsens she will call me at once. 06/05/2023 Crohns disease (ICD- 10 - K50.90) Her inflammatory bowel diseases tolerable unstable. She remains under the care of Dr. Steiner, her regional operations director Her last colonoscopy was in 2011 and was unremarkable except for the Crohn's disease. 07/27/2022 Hypothyroidism (ICD- 10 - E03.9) Her thyroid function tests have been in the normal range with the TSH 4.14. No change in her regimen was made. She will continue on her current dose. 07/27/2022 Labyrinthitis of bot h ears (ICD-10 - H83.03) We discussed the usual time course of labyrinthitis and vertigo. She will call me if it worsens, and I will prescribe meclizine. Meanwhile, she will try an antihistamine. She was cautioned to drive safely and slowly. 02/10/2023 Hyperlipidemia (ICD- 10 - E78.5) Her lipids have improved since the last determination. Her total cholesterol is slightly out of range. Her triglycerides have improved but are still elevated. We reviewed diet today. 02/10/2023 Diplopia (ICD-10 - H53.2) The MRI of the brain is normal and she has been to the oophthalmologist and is wearing a prism. 01/31/2023 Diplopia (ICD-10 - H53.2) She will be referred to ophthalmology and to neurology and as well have an MRI of the brain. 01/31/2023 Over weight (ICD-10 - E66.3) Her weight is stable at 148 pounds and a body mass index 27. I recommend a gradual slow and steady weight loss of 1/2 pound per week through a diet restricted in calories. 08/24/2022 Over weight (ICD-10 - E66.3) Her weight is stable at 150 pounds and a body mass index 27. I recommend a gradual slow and steady weight loss of 1/2 pound per week through a diet restricted in calories. 08/24/2022 Menopausal state (IC D-10 - N95.1) She has not experienced any vaginal bleeding. 02/01/2023 Diplopia (ICD-10 - H53.2) She will be referred to ophthalmology and to neurology and as well have an MRI of the brain. 02/01/2023 Over weight (ICD-10 - E66.3) Her weight is stable at 148 pounds and a body mass index 27. I recommend a gradual slow and steady weight loss of 1/2 pound per week through a diet restricted in calories. 06/05/2023 Menopausal state (IC D-10 - N95.1) She has not experienced any vaginal bleeding. 07/27/2022 Crohns disease (ICD- 10 - K50.90) Her inflammatory bowel diseases tolerable unstable. She remains under the care of Dr. Steiner, her regional operations director Her last colonoscopy was in 2011 and was unremarkable except for the Crohn's disease. 02/10/2023 Over weight (ICD-10 - E66.3) Her weight is stable at 148 pounds and a body mass index 27. I recommend a gradual slow and steady weight loss of 1/2 pound per week through a diet restricted in calories. 01/31/2023 Crohns disease (ICD- 10 - K50.90) Her inflammatory bowel diseases tolerable unstable. She remains under the care of Dr. Steiner, her regional operations director Her last colonoscopy was in 2011 and was unremarkable except for the Crohn's disease. 06/12/2023 Tick bite (ICD-10 - W57.XXXA) 08/24/2022 Eczema (ICD-10 - L30.9) Examinat ion of the skin showed very little eczema today. This problem is inactive. 02/01/2023 Hyperlipidemia (ICD- 10 - E78.5) Her lipids have improved since the last determination. Her total cholesterol is slightly out of range. Her triglycerides have improved but are still elevated. We reviewed diet today. 06/05/2023 Eczema (ICD-10 - L30.9) Examinat ion of the skin showed very little eczema today. This problem is inactive. 07/27/2022 Hyperlipidemia (ICD- 10 - E78.5) Her lipids have improved since the last determination. Her total cholesterol is slightly out of range. Her triglycerides have improved but are still elevated. We reviewed diet today. 02/10/2023 Osteopenia (ICD-10 - M85.80) She has had no apparent fractures. She will continue on her current calcium tablets. 01/31/2023 Hypothyroidism (ICD- 10 - E03.9) Her thyroid function tests have been in the normal range with the TSH 4.14. No change in her regimen was made. She will continue on her current dose. 08/24/2022 Hyperlipidemia (ICD- 10 - E78.5) Her lipids have improved since the last determination. Her total cholesterol is slightly out of range. Her triglycerides have improved but are still elevated. We reviewed diet today. 02/01/2023 Osteopenia (ICD-10 - M85.80) She has had no apparent fractures. She will continue on her current calcium tablets. 06/05/2023 Hyperlipidemia (ICD- 10 - E78.5) Her lipids have improved since the last determination. Her total cholesterol is slightly out of range. Her triglycerides have improved but are still elevated. We reviewed diet today. 07/27/2022 Osteopenia (ICD-10 - M85.80) She has had no apparent fractures. She will continue on her current calcium tablets. 02/10/2023 Hypothyroidism (ICD- 10 - E03.9) Her thyroid function tests have been in the normal range with the TSH 4.14. No change in her regimen was made. She will continue on her current dose. 01/31/2023 Osteopenia (ICD-10 - M85.80) She has had no apparent fractures. She will continue on her current calcium tablets. 08/24/2022 Hypothyroidism (ICD- 10 - E03.9) Her thyroid function tests have been in the normal range with the TSH 4.14. No change in her regimen was made. She will continue on her current dose. 02/01/2023 Hypothyroidism (ICD- 10 - E03.9) Her thyroid function tests have been in the normal range with the TSH 4.14. No change in her regimen was made. She will continue on her current dose. 06/05/2023 Hypothyroidism (ICD- 10 - E03.9) Her thyroid function tests have been in the normal range with the TSH 4.14. No change in her regimen was made. She will continue on her current dose. 07/27/2022 Over weight (ICD-10 - E66.3) Her body mass index is 27 and she has lost 3 pounds. We discussed diet, nutrition. We made a plan so that she could continue to lose weight at a rate of one half of a pound per week to a diet restricted in calories. 01/31/2023 Hyperlipidemia (ICD- 10 - E78.5) Her lipids have improved since the last determination. Her total cholesterol is slightly out of range. Her triglycerides have improved but are still elevated. We reviewed diet today. 08/24/2022 Osteopenia (ICD-10 - M85.80) She has had no apparent fractures. She will continue on her current calcium tablets. 02/01/2023 Crohns disease (ICD- 10 - K50.90) Her inflammatory bowel diseases tolerable unstable. She remains under the care of Dr. Steiner, her regional operations director Her last colonoscopy was in 2011 and was unremarkable except for the Crohn's disease. 06/05/2023 Over weight (ICD-10 - E66.3) Her weight is stable at 148 pounds and a body mass index 27. I recommend a gradual slow and steady weight loss of 1/2 pound per week through a diet restricted in calories. 08/24/2022 Hypertriglyceridemia (ICD-10 - E78.1) Her triglycerides are elevated. He says she is avoiding dietary sources of triglycerides and red meat. She will educate herself the dietary sources of lipids. I recommended that she is is 10 pounds over the next 6 months and have these values repeated in another office visit. She treated herself. PLAN OF TREATMENT Pending Test Test Name Order Date URINE DIP STICK 05/11/2020 PROFILE, FASTING (COMPREHENSIVE METABOLI C) 05/31/2022 PROFILE, FASTING (COMPREHENSIVE METABOLI C) 05/08/2018 PROFILE, FASTING (COMPREHENSIVE METABOLI C) 06/18/2019 PROFILE, FASTING (COMPREHENSIVE METABOLI C) 05/24/2021 PROFILE, FASTING (COMPREHENSIVE METABOLI C) 05/11/2020 PROFILE, FASTING (COMPREHENSIVE METABOLI C) 04/27/2017 PROFILE, FASTING (COMPREHENSIVE METABOLI C) 05/10/2019 PROFILE, RANDOM (COMPREHENSIVE METABOLIC ) 04/21/2016 LIPID PANEL 05/10/2019 LIPID PANEL 04/21/2016 LIPID PANEL 05/31/2022 LIPID PANEL 05/08/2018 LIPID PANEL 06/18/2019 LIPID PANEL 05/24/2021 LIPID PANEL 05/11/2020 LIPID PANEL 04/27/2017 FREE T4 (FT4) 06/18/2019 FREE T4 (FT4) 05/11/2020 TSH (THYROID STIMULATING HORMONE) 2020 TSH (THYROID STIMULATING HORMONE) 2022 TSH (THYROID STIMULATING HORMONE) 2019 CBC w DIFF 04/27/2017 CBC w DIFF 06/18/2019 CBC w DIFF 05/10/2019 CBC w DIFF 05/11/2020 CBC w DIFF 04/21/2016 CBC w DIFF 05/08/2018 CBC w DIFF 05/31/2022 CBC w DIFF 05/24/2021 LYME DISEASE IgG/IgM WB 06/12/2023 MRI BRAIN W&WO CONTRAST 01/31/2023 VITAMIN D 25-OH TOTAL 05/24/2021 MM tomosynthesis screening BI 05/22/2023 Lyme IgG/IgM w/reflex to WB 06/13/2023 Next Appt Details Provider Name:Jeff Nicholsonrne, 06/05/2024 09:30:00 AM, [address] [place] [address] , [facility] [address], [place], [address], Insurance Providers Payer Name Payer Address Payer Phone Subscriber Number Group Number Insured Name Patient Relationship to Insured Coverage Start Date Coverage End Date [facility] [address] [address] [place] [address] [id number] Oriana Hinds Self - patient is the insured MEDICAL (GENERAL) HISTORY Medical History History ICD Code menopause Crohn's disease eczema hyperlipidemia hypothyroidism osteopenia Labyrinthitis July 2019 through Surgical History Surgery Date(Month/Year) Teeth pulled 07/2022 colonoscopy 2007 tubal ligation partial ileocolectomy T&A
[2023-07-02 00:10] LABS: Alanine Aminotransferase 16 U/L (0-31); Albumin Level 4.4 g/dL (3.5-5.0); Alkaline Phosphatase 92 U/L (39-117); Anion Gap 23 (12-20); Aspartate Amino Transferase 18 U/L (5-31); Bilirubin Total 0.9 mg/dL (0.0-1.0); Blood Urea Nitrogen 17 mg/dL (9-16); Calcium 9.9 mg/dL (8.4-10.2); Carbon Dioxide 23 mmol/L (22-29); Chloride 99 mmol/L (96-108); Creatinine Clr Calc Pharmacy 40.6; Estimated Glomerular Filt Rate 49; Glucose Random 201 mg/dL (60-115); Lipase 32 U/L (8-78); Potassium 4.1 mmol/L (3.3-5.1); Sodium 141 mmol/L (135-145); Total Protein 7.8 g/dL (6.5-8.0)
[2023-07-02] MEDS: Prochlorperazine Edisylate 10 MG/2 ML VIAL IVPUSH (00:29)
[2023-07-02] MEDS: Morphine Sulfate 4 MG/ML CARTRIDGE IVPUSH ×2 (00:29→04:01)
[2023-07-02] MEDS: 0.9 % Sodium Chloride 1,000 ML 999 ML IVCONT (00:37)
[2023-07-02] MEDS: iohexoL 350 MG/ML 100 ML INFUS..BTL 85 ML IV (00:51)
[2023-07-02] MEDS: ondansetron HCL 4 MG/2 ML VIAL IVPUSH (04:01)
--- NOTE | 2023-07-02 04:15 | PC.NURSE ---
Pt destating to 89% after medication. Pt placed on 2L via NC with improvement to 94%.
--- NOTE | 2023-07-02 04:22 | P.HPHOSP_ITS ---
History of Present Illness Date of Service: 07/02/23 Attending physician on admission: Marycruz Nugent Chief Complaint: vomiting Oriana Bell is a 77 years old woman with past medical history significant for Crohn's disease s/p surgery (the ileum and appendix were removed) at age 33 presents to the emergency department complaining of multiple events of non bloody vomiting that started Monday associated with periumbilical abdominal pain. She denies diarrhea. Last bowel movement was this morning -loose stools (this is usual for her). Denied fever or chills. Did not report any acute urinary symptoms. She did not report any acute cardiopulmonary symptoms. Denied alcohol abuse, tobacco smoking or illicit drug use. No recent travel history or contact with ill people with similar symptoms. Patient has not had Crohn's flares since the surgery and is not taking medications for this. In the ED, she was found to have stable vital signs. Blood pressure is 104/54. Blood workup showed no leukocytosis. Hemoglobin is normal. Platelet level is 433. There are no significant electrolyte imbalances. BUN is slightly elevated, 17. Creatinine is 1.08. LFTs are normal. Abdomen pelvis CT scan showed finding consistent with partial distal small-bowel obstruction with transition point in the pelvis, thickened terminal small bowel loop within the pelvis likely secondary to patient's known Crohn's disease, multiple hepatic cysts and small amount of free fluid within the pelvis. ED tx: Zofran 4 mg IV x2, Compazine 10 mg IV, NS 1 L bolus, morphine 4 mg IV x2. Review of Systems 2 Review of Systems: All 12 systems were reviewed and normal except as noted in HPI. [facility] Medical History Crohn's disease Surgical History (Updated 07/02/23 @ 00:01 by Marielena Riley MD) History of appendectomy Social History Advance Directives: Yes Advance Directives Information Provided: No Advance Directives on File: No Do you have a plan to hurt others: No Plan Meds Allergies Allergy/AdvReac Type Severity Reaction Status Date / Time No Known Allergies Allergy Verified 07/01/23 23:42 Active Medications: Current Medications Acetaminophen (Acetaminophen 325 Mg Tablet) 975 mg PO Q6H PRN PRN Reason: Pain, Mild (Pain Scale 1-3) Heparin Sodium (Porcine) (Heparin Sodium,Porcine 5,000 Unit/Ml Vial) 5,000 unit SUBCUT Q8H [facility] Lactated Ringer's (Lr) 1,000 mls @ 125 mls/hr IVCONT .Q8H [facility] Stop: 07/02/23 16:14 Prochlorperazine Edisylate (Prochlorperazine Edisylate 10 Mg/2 Ml Vial) 5 mg IVPUSH Q6H [facility] Sodium Chloride (0.9 % Sodium Chloride Flush 3 Ml Syringe) 3 ml IVFLUSH QSHIFT [facility] Physical Exam 2 Vital Signs and Narrative: Vital Signs: Last Vital Signs Temp 98.0 F 07/02/23 04:00 Pulse 85 07/02/23 04:00 Resp 16 07/02/23 04:01 BP 104/54 L 07/02/23 04:00 Pulse Ox 94 07/02/23 04:00 O2 Del Method Room Air 07/02/23 04:00 BMI result Body Mass Index 27.4 Constitutional - Awake and Alert, No apparent distress. Acutely ill. Pleasant. Cooperative. HEENT - Pupils equally round. Normal sclerae. Very dry oral mucosa. Heart - RRR. Lungs - Normal lung expansion, Normal respiratory effort, No respiratory distress, CTA bilaterally Abdomen - Large surgical scar. Minimally distended, periumbilical tenderness (> Left side) and pelvis. Mild guarding. No rebound. Extremities - no calf tenderness bilaterally, no swelling Musculoskeletal - Normal inspection, normal ROM Skin - Warm/Dry Neurological - Alert & oriented x3. No weakness grossly noted. Normal speech. Psychological - Appropriate affect Results Labs 07/01/23 23:45 07/01/23 23:45 Labs: Laboratory Results - last 24 hr 07/01/23 23:45 MCV 84.8 MCH 27.7 MCHC 32.7 RDW 13.6 Plt Count 433 H D MPV 8.8 L Immature Gran % (Auto) 0.2 Neut % (Auto) 89.0 H Lymph % (Auto) 3.2 L Holt % (Auto) 6.9 Eos % (Auto) 0.3 Baso % (Auto) 0.4 Lymph # (Auto) 0.4 L Holt # (Auto) 0.8 Eos # (Auto) 0.0 Baso # (Auto) 0.0 Abs Immat Gran (auto) 0.02 Absolute Neuts (auto) 9.6 H Absolute Nucleated RBC 0.000 Nucleated RBC % (auto) 0.0 Anion Gap 23 H Estim Creat Clear Calc 40.6 Estimated GFR 49 Random Glucose 201 H Calcium 9.9 D Total Bilirubin 0.9 AST 18 ALT 16 Alkaline Phosphatase 92 Total Protein 7.8 Albumin 4.4 Lipase 32 Imaging Radiologist's Impressions: Impressions Abdomen/Pelvis CT 07/02/23 01:05 IMPRESSION: 1. Findings consistent with partial distal small bowel obstruction with transition point in the pelvis. There is a thickened terminal small bowel loop within the pelvis likely secondary to patient's known Crohn's disease.. 2. Multiple hepatic hypodensities likely cysts. 3. Small amount of free fluid within the pelvis. Fleischner guidelines were followed. Assessment and Plan (1) Partial obstruction of small intestine: Status: Acute (2) Nausea and vomiting: Qualifiers: Vomiting type: unspecified Qualified Code(s): R11.2 - Nausea with vomiting, unspecified Status: Acute Plan Oriana Bell is a 77 years old woman with PMHx significant for Crohn's disease s/p surgery at age 33 (ileum + appendix removed): * Partial distal small bowel obstruction. Admit to hospitalist service. Bowel rest. IV fluids. Pain control with Toradol IV and avoid opiates if possible. Antiemetic therapy as needed. Check CRP. Surgery and GI consults. DVT prophylaxis: Heparin Code status: Full Patient needs hospitalization for at least 2 midnights for partial distal small- bowel obstruction therapy with NPO status, IV fluids and pain control. Patient will also need evaluation by GI and surgery services. Quality Stroke Does the patient have a stroke diagnosis?: No VTE Prior VTE?: No VTE Risk Level:: Medical - moderate - high VTE Device Contraindication: Treatment Not Indicated VTE Drug Contraindication: N/A - Med Ordered
[2023-07-02 04:51] LABS: C Reactive Protein 1.53 mg/dL (< or = 0.50)
[2023-07-02] MEDS: Lactated Ringers 1,000 ML 125 ML IVCONT ×2 (04:52→12:14)
[2023-07-02 05:34] LABS: MANUAL DIFF FLAG NO
[2023-07-02 05:36] LABS: Basophils Percent Auto 0.5 % (0-2); Hematocrit 38.3 % (37.0-47.0); Hemoglobin 12.9 g/dl (12.0-16.0); Imm Gran Abs Auto 0.01 X10*3/uL (0.00-0.03); Imm Gran Pct Auto 0.2 % (0.0-0.4); Lymphocytes Absolute Auto 0.4 X10*3/uL (1.2-4.9); Lymphocytes Percent Auto 8.2 % (20-40); Mean Corpuscular HGB Conc 33.7 g/dl (31.0-35.0); Mean Corpuscular Hemoglobin 28.1 pg (27.0-33.0); Mean Corpuscular Volume 83.4 fL (80.0-98.0); Mean Platelet Volume 9.1 fL (9.4-12.3); Monocytes Absolute Auto 0.5 X10*3/uL (0.1-1.2); Monocytes Percent Auto 10.2 % (2-11); Neutrophils Absolute Auto 3.6 x10*3/uL (2.0-8.3); Neutrophils Percent Auto 80.9 % (45-73); Platelet Count 312 X10*3/uL (160-400); Red Blood Count 4.59 X10*6/uL (4.20-5.50); Red Cell Distribution Width 13.7 % (11.0-16.0); White Blood Count 4.4 X10*3/uL (4.8-10.8)
[2023-07-02 06:01] LABS: Alanine Aminotransferase 14 U/L (0-31); Albumin Level 3.6 g/dL (3.5-5.0); Alkaline Phosphatase 65 U/L (39-117); Anion Gap 17 (12-20); Aspartate Amino Transferase 18 U/L (5-31); Bilirubin Total 0.8 mg/dL (0.0-1.0); Blood Urea Nitrogen 18 mg/dL (9-16); Calcium 8.6 mg/dL (8.4-10.2); Carbon Dioxide 22 mmol/L (22-29); Chloride 104 mmol/L (96-108); Creatinine Clr Calc Pharmacy 48.8; Estimated Glomerular Filt Rate > 60; Glucose Random 146 mg/dL (60-115); Potassium 4.4 mmol/L (3.3-5.1); Sodium 139 mmol/L (135-145); Total Protein 6.4 g/dL (6.5-8.0)
--- NOTE | 2023-07-02 06:49 | PC.NURSE ---
Pt A&Ox3, came in for 10/ mid ABD pain and vomiting yellow/brown in color x 1600 yesterday. Pt has hx of crohns and has loose BMs. IV line placed. Pt medicated per MAY.
[2023-07-02] MEDS: Heparin Sodium,Porcine 5,000 UNIT/ML VIAL 5000 UNIT SUBCUT ×3 (06:55→21:26)
--- NOTE | 2023-07-02 07:45 | PC.NURSE ---
Refusing IV Nausea medication at this time, no c/o pain in abd.
--- NOTE | 2023-07-02 08:25 | PM.CNGS ---
History of Present Illness Consult details Consult date: 07/02/23 Requesting physician: Allison Dudley Narrative: 77-year-old female patient with a known history of Crohn's disease, s/p ileocecal resection approximately 40 years ago presenting with complaints of mid abdominal pain associated with nausea and nonbloody vomiting starting yesterday. Patient also reports no bowel movements since yesterday. She denies fever, chills, or other associated symptoms. This morning the abdominal pain is improved but she still has a queasy sensation. Workup with CT abdomen and pelvis revealed an area of thickened ileum adjacent to the ileocolonic anastomosis suggestive of Crohn's flare. Patient also had dilated loops of proximal small bowel suggestive of a partial small-bowel obstruction. There is stool in the colon. Patient is admitted to the hospitalist service for management of partial small-bowel obstruction possibly due to Crohn's disease. Review of Systems Review of Systems: Yes all other systems are reviewed and are negative Constitutional: Constitutional: Denies chills, Denies fever(s), Denies headache(s), Reports poor appetite and Denies weakness ENT: Denies headache(s) Cardiovascular: Cardiovascular: Denies chest pain, Denies irregular heart rhythm, Denies palpitations and Denies dyspnea Respiratory: Respiratory: Denies cough, Denies excessive phlegm production and Denies dyspnea Gastrointestinal: Gastrointestinal: Reports abdominal pain, Denies bloating, Denies change in bowel habits, Reports constipation, Denies heartburn, Denies diarrhea, Reports nausea and Reports vomiting Genitourinary: Genitourinary: Denies urinary frequency Musculoskeletal: Musculoskeletal: Denies back pain, Denies muscle weakness and Denies numbness Integumentary/Breasts: Skin/Breast: Denies changing lesions and Denies unusual bruising Neurologic: Denies headache(s), Denies numbness, Denies paresthesias and Denies weakness Psychiatric: Psychiatric: Denies anxiety and Denies depression Endocrine: Endocrine: Denies palpitations Hematologic/Lymphatic: Hematologic/Lymphatic: Denies lymphadenopathy PMFSH Past Medical History Medical History Crohn's disease Surgical History Surgical History History of appendectomy Social History Social History Household Members: Spouse Housing: House Do you presently have visiting nurse or other home services: No Alcohol intake: never Patient Tobacco Use Status: Never used Tobacco Advance Directives Date on File: 07/02/23 Meds Allergies Allergy/AdvReac Type Severity Reaction Status Date / Time No Known Allergies Allergy Verified 07/01/23 23:42 Active Medications: Current Medications Acetaminophen (Acetaminophen 325 Mg Tablet) 975 mg PO Q6H PRN PRN Reason: Pain, Mild (Pain Scale 1-3) Heparin Sodium (Porcine) (Heparin Sodium,Porcine 5,000 Unit/Ml Vial) 5,000 unit SUBCUT Q8H [facility] Last Admin: 07/02/23 06:55 Dose: 5,000 unit Lactated Ringer's (Lr) 1,000 mls @ 125 mls/hr IVCONT .Q8H [facility] Stop: 07/02/23 16:14 Last Admin: 07/02/23 04:52 Dose: 125 mls/hr Prochlorperazine Edisylate (Prochlorperazine Edisylate 10 Mg/2 Ml Vial) 5 mg IVPUSH Q6H [facility] Last Admin: 07/02/23 07:35 Dose: Not Given Sodium Chloride (0.9 % Sodium Chloride Flush 3 Ml Syringe) 3 ml IVFLUSH QSHIFT [facility] Last Admin: 07/02/23 07:35 Dose: Not Given Physical Exam Vital Signs: Vital Signs: Last Vital Signs Temp 98.4 F 07/02/23 08:14 Pulse 85 07/02/23 08:14 Resp 17 07/02/23 08:14 BP 100/50 L 07/02/23 08:14 Pulse Ox 93 07/02/23 08:14 O2 Del Method Room Air 07/02/23 08:14 O2 Flow Rate 2 07/02/23 04:43 BMI result Body Mass Index 27.4 Const: General: cooperative and no acute distress Nutritional Appearance: well nourished Orientation/consciousness: patient oriented x3 Limitations: no limitations HEENT: Head: Yes normocephalic and Yes atraumatic Ears: hearing grossly normal bilaterally Resp: Effort & Inspection: normal respiratory effort, no audible wheezes, no cough and no respiratory distress Cardio: Jugular venous distension: no JVD GI: Inspection: Yes normal to inspection Palpation (GI): Soft to palpation, Tenderness to palpation present (GI) periumbilically; with no rebound tenderness, no guarding, not rigid, No hepatosplenomegaly present and no hernias Percussion: Yes dullness to percussion Rectal Exam - Female: deferred Abdomen image: 1. Midline incision from prior bowel resection Skin: Other: Warm, dry, no rash Neuro: General: patient oriented x3 Extrem: General: Yes no clubbing, cyanosis or edema Results Labs 07/02/23 05:07 07/02/23 05:07 Labs: Abnormal lab results 07/01/23 07/02/23 Range/Units 23:45 05:07 WBC 4.4 L (4.8-10.8) X10*3/uL Plt Count 433 H D (160-400) X10*3/uL MPV 8.8 L 9.1 L (9.4-12.3) fL Neut % (Auto) 89.0 H 80.9 H (45-73) % Lymph % (Auto) 3.2 L 8.2 L (20-40) % Lymph # (Auto) 0.4 L 0.4 L (1.2-4.9) X10*3/uL Absolute Neuts (auto) 9.6 H (2.0-8.3) x10*3/uL Anion Gap 23 H (12-20) BUN 17 H 18 H (9-16) mg/dL Random Glucose 201 H 146 H (60-115) mg/dL C-Reactive Protein 1.53 H (< or = 0.50) mg/dL Total Protein 6.4 L (6.5-8.0) g/dL Short CBC 07/01/23 07/02/23 Range/Units 23:45 05:07 WBC 10.8 4.4 L (4.8-10.8) X10*3/uL Hgb 14.9 D 12.9 (12.0-16.0) g/dl Hct 45.6 D 38.3 (37.0-47.0) % Plt Count 433 H D 312 D (160-400) X10*3/uL BMP 07/01/23 07/02/23 23:45 05:07 Sodium 141 139 Potassium 4.1 4.4 Chloride 99 104 Carbon Dioxide 23 22 BUN 17 H 18 H Creatinine 1.08 0.90 Calcium 9.9 D 8.6 D Liver Function 07/01/23 07/02/23 Range/Units 23:45 05:07 Total Bilirubin 0.9 0.8 (0.0-1.0) mg/dL AST 18 18 (5-31) U/L ALT 16 14 (0-31) U/L Alkaline Phosphatase 92 65 (39-117) U/L Albumin 4.4 3.6 (3.5-5.0) g/dL All other labs normal. Assessment and Plan (1) Partial obstruction of small intestine: Status: Acute Plan 77-year-old female patient with a known history of Crohn's disease presenting with a sudden onset of nausea, vomiting, and abdominal pain found on CT to have thickened distal ileum at the level of the ileocolonic anastomosis. Proximal to this small bowel is dilated with air-fluid level suggestive of a partial obstruction. Findings seems suggestive of a Crohn's flare. Recommend medical treatment, GI consultation. Surgical treatment would be reserved for persistent symptoms despite maximal medical management. Procedures Date of Service Date of Service: 07/02/23
[2023-07-02 08:28] LABS: Appearance Urine Clear; Color Urine Yellow; Glucose Urine UA Negative (Negative); Leukocyte Esterase Urine Negative (Negative); Nitrite Urine Negative (Negative); PH 5.5 (5.0-9.0); Specific Gravity - Urine >= 1.030 (1.005-1.025); Urine Blood Negative (Negative); Urine Ketones Trace mg/dL (Negative); Urine Protein Trace mg/dL (Neg-Trace)
--- NOTE | 2023-07-02 09:06 | PM.EVENT ---
Event Note Date of Service: 07/02/23 Event Note: Seen and evaluated this morning Not passing gas, no nausea or vomiting though Keep NPO IVF Surgery evaluation repeat AXR tomorrow Time Spent With Patient Time: Total time managing care of this patient today ____ minutes.
--- NOTE | 2023-07-02 09:38 | PHA.MEDREC ---
Pharmacy Consult ? Medication Reconciliation Pharmacy has completed the medication reconciliation. spoke with patient to confirm.
--- NOTE | 2023-07-02 10:55 | MHC.CM.PN ---
IMM DELIVERED PT LIVES WITH SPOUSE AND IS INDEPENDENT AT BASELINE. +HCP ON FILE AT MD OFFICE, COPY REQUESTED. PCP DR. RUBIO. DP: HOME, NO SERVICES ANTICIPATED. FAMILY WILL TRANSPORT
[2023-07-02] MEDS: Prochlorperazine Edisylate 10 MG/2 ML VIAL 5 MG IVPUSH ×2 (12:20→18:00)
[2023-07-02] MEDS: 0.9 % Sodium Chloride Flush 3 ML SYRINGE IVFLUSH (20:45)
[2023-07-03 03:36] VITALS: BP 118/56; PULSE 72; RESP 19; TEMP 36.2; O2SAT 91
[2023-07-03] MEDS: Heparin Sodium,Porcine 5,000 UNIT/ML VIAL 5000 UNIT SUBCUT (05:37)
[2023-07-03 06:17] LABS: Hemoglobin 10.6 g/dl (12.0-16.0); Mean Corpuscular HGB Conc 32.1 g/dl (31.0-35.0); Mean Corpuscular Volume 87.1 fL (80.0-98.0); Mean Platelet Volume 9.3 fL (9.4-12.3); Platelet Count 269 X10*3/uL (160-400); Red Blood Count 3.79 X10*6/uL (4.20-5.50); Red Cell Distribution Width 14.2 % (11.0-16.0); White Blood Count 6.1 X10*3/uL (4.8-10.8)
[2023-07-03 06:24] LABS: Anion Gap 12 (12-20); Blood Urea Nitrogen 20 mg/dL (9-16); Carbon Dioxide 25 mmol/L (22-29); Chloride 106 mmol/L (96-108); Creatinine Clr Calc Pharmacy 53.6; Estimated Glomerular Filt Rate > 60; Glucose Random 96 mg/dL (60-115); Potassium 4.1 mmol/L (3.3-5.1); Sodium 139 mmol/L (135-145)
[2023-07-03 07:07] VITALS: BP 94/62; PULSE 71; RESP 18; TEMP 36.2; O2SAT 92
[2023-07-03] MEDS: 0.9 % Sodium Chloride Flush 3 ML SYRINGE IVFLUSH (07:15)
--- NOTE | 2023-07-03 08:41 | PM.PNGS ---
Subjective Subjective Date of Service: 07/03/23 Interval history: Patient reports passing gas and having a bowel movement. Feels much improved and would like to try food. She feels ready to go home as well. Physical Exam Vital Signs: Vital Signs: Last Vital Signs Temp 97.1 F 07/03/23 07:07 Pulse 71 07/03/23 07:07 Resp 18 07/03/23 07:07 BP 94/62 07/03/23 07:07 Pulse Ox 92 07/03/23 07:07 O2 Del Method Room Air 07/03/23 07:07 O2 Flow Rate 2 07/02/23 04:43 BMI result Body Mass Index 27.4 Const: General: no acute distress Nutritional Appearance: well nourished Orientation/consciousness: patient oriented x3 Limitations: no limitations Resp: Effort & Inspection: normal respiratory effort, no audible wheezes, no cough and no respiratory distress GI: Inspection: Yes normal to inspection Palpation (GI): Soft to palpation, nontender, no guarding and not rigid Neuro: General: patient oriented x3 Extrem: General: Yes normal to inspection Objective Data Active Medications Acetaminophen (Acetaminophen 325 Mg Tablet) 975 mg PO Q6H PRN PRN Reason: Pain, Mild (Pain Scale 1-3) Heparin Sodium (Porcine) (Heparin Sodium,Porcine 5,000 Unit/Ml Vial) 5,000 unit SUBCUT Q8H [facility] Last Admin: 07/03/23 05:37 Dose: 5,000 unit Documented By: LINDSEY Prochlorperazine Edisylate (Prochlorperazine Edisylate 10 Mg/2 Ml Vial) 5 mg IVPUSH Q6H [facility] Last Admin: 07/03/23 07:16 Dose: Not Given Documented By: HARSHA Non-Admin Reason: Patient Refused Sodium Chloride (0.9 % Sodium Chloride Flush 3 Ml Syringe) 3 ml IVFLUSH QSHIFT [facility] Last Admin: 07/03/23 07:15 Dose: 3 ml Documented By: HARSHA Labs 07/03/23 05:29 07/03/23 05:29 Labs: Laboratory Results - last 24 hr 07/03/23 05:29 MCV 87.1 MCH 28.0 MCHC 32.1 RDW 14.2 Plt Count 269 MPV 9.3 L Absolute Nucleated RBC 0.000 Nucleated RBC % (auto) 0.0 Anion Gap 12 Estim Creat Clear Calc 53.6 Estimated GFR > 60 Random Glucose 96 Calcium 8.0 L D Procedures Date of Service Date of Service: 07/03/23 Progress Note: A&P Assessment and plan (1) Nausea and vomiting: Status: Acute (2) Partial obstruction of small intestine: Status: Acute Plan Patient admitted with a partial small-bowel obstruction with a prior history of Crohn's disease with a previous ileocolonic anastomosis proximally 40 years ago. She appears much improved this morning and is ready for a diet. She tolerates this diet she is clear from my standpoint to be discharged to home. She should follow up with GI as an outpatient. Time Spent With Patient Time: Total time managing care of this patient today ____ minutes. Quality Stroke Does the patient have a stroke diagnosis?: No VTE Prior VTE?: No VTE Risk Level:: Medical - moderate - high VTE Device Contraindication: Treatment Not Indicated VTE Drug Contraindication: N/A - Med Ordered
--- NOTE | 2023-07-03 13:57 | P.DS_ITS ---
DS: Providers Provider Date of Service: 07/03/23 Date of admission: 07/02/23 04:13 Primary care physician: Jeff Carias MD Consults: 07/02/23 04:19 Consult to General Surgery Routine Consulting Provider: [facility] Surgeons Reason for consultation: Partial bowel obstruction Has provider been notified: No DS: Diagnosis Discharge Diagnosis (1) Nausea and vomiting: Status: Acute (2) Partial obstruction of small intestine: Status: Acute DS: Summary Hospital Course Hospital Course: Date of Service: 07/02/23 Attending physician on admission: Marycruz Nugent Chief Complaint: vomiting Oriana Bell is a 77 years old woman with past medical history significant for Crohn's disease s/p surgery (the ileum and appendix were removed) at age 33 presents to the emergency department complaining of multiple events of non bloody vomiting that started Monday associated with periumbilical abdominal pain. She denies diarrhea. Last bowel movement was this morning -loose stools (this is usual for her). Denied fever or chills. Did not report any acute urinary symptoms. She did not report any acute cardiopulmonary symptoms. Denied alcohol abuse, tobacco smoking or illicit drug use. No recent travel history or contact with ill people with similar symptoms. Patient has not had Crohn's flares since the surgery and is not taking medications for this. In the ED, she was found to have stable vital signs. Blood pressure is 104/54. Blood workup showed no leukocytosis. Hemoglobin is normal. Platelet level is 433. There are no significant electrolyte imbalances. BUN is slightly elevated, 17. Creatinine is 1.08. LFTs are normal. Abdomen pelvis CT scan showed finding consistent with partial distal small-bowel obstruction with transition point in the pelvis, thickened terminal small bowel loop within the pelvis likely secondary to patient's known Crohn's disease, multiple hepatic cysts and small amount of free fluid within the pelvis. ED tx: Zofran 4 mg IV x2, Compazine 10 mg IV, NS 1 L bolus, morphine 4 mg IV x2. Hospital course: 77-year-old female patient with past medical history significant for Crohn's disease status post small bowel resection with ileocolonic anastomosis presented to ED due to symptoms of multiple episodes of nonbloody vomitus associated with periumbilical abdominal discomfort CT abdomen and pelvis showed findings consistent with partial distal bowel obstruction with transition point in the pelvis with thickened terminal small bowel loops within the pelvis likely secondary to patient's known history of Crohn's disease, patient was treated with bowel rest, IV fluids, analgesics, and was evaluated by General surgery, they recommended conservative management, patient's symptoms resolved, she to lerated diet, passing gas, and having normal bowel movements, therefore being discharged home with recommendation to have outpatient follow-up with Gastroenterology for follow-up on Crohn's disease. Time Attestation Discharge Coordination Time (in mins): 36 Quality: Safe Use of Opioids Does Pt have an Active Cancer Diagnosis on the Problem List?: No Quality: Stroke Does the patient have a stroke diagnosis?: No Physical Exam Vital Signs: Vital Signs: Last Vital Signs Temp 97.1 F 07/03/23 07:07 Pulse 71 07/03/23 07:07 Resp 18 07/03/23 07:07 BP 94/62 07/03/23 07:07 Pulse Ox 92 07/03/23 07:07 O2 Del Method Room Air 07/03/23 07:07 O2 Flow Rate 2 07/02/23 04:43 BMI result Body Mass Index 27.4 Const: Other: General awake alert x3, in no acute distress. Neck supple no JVD. CVS regular rate rhythm, Respiratory lungs clear to auscultation, no respiratory distress, no wheeze, no rhonchi. Gastrointestinal abdomen soft, non tender, bowel sounds audible, no guarding , no rigidity. Extremities no edema. Neuro non focal Skin no rash Psych appropriate affect DS: Data Data Completed and Pending Labs on day of discharge: Laboratory Results - last 24 hr 07/03/23 05:29 WBC 6.1 RBC 3.79 L Hgb 10.6 L Hct 33.0 L MCV 87.1 MCH 28.0 MCHC 32.1 RDW 14.2 Plt Count 269 MPV 9.3 L Absolute Nucleated RBC 0.000 Nucleated RBC % (auto) 0.0 Sodium 139 Potassium 4.1 Chloride 106 Carbon Dioxide 25 Anion Gap 12 BUN 20 H Creatinine 0.82 Estim Creat Clear Calc 53.6 Estimated GFR > 60 Random Glucose 96 Calcium 8.0 L D Discharge Plan Discharge Anticipated Discharge Date/Time: 07/03/23 13:53 Patient Disposition: Home, Self-Care Discharge Diagnosis: Partial small-bowel obstruction Referrals: Jeff Carias MD [Primary Care Provider] - 1 Week Discharge Medications: Continued multivitamin Tablet 1 tab PO DAILY cholecalciferol (vitamin D3) [Vitamin D3] 25 mcg (1,000 unit) Tablet 25 mcg PO DAILY omega 1-[id number]-fish oil [Fish Oil] 1,000 mg (120 mg-180 mg) Capsule 1 - 2 cap PO DAILY Discharge Orders: Discharge Order (Routine); Ordered 07/03/23 Ordered By: Paulino Lafleur Diet: Advance to usual diet Activity on Discharge: As tolerated Stand Alone Forms: Patient Portal Discharge page Print Language: Gambian Care Plan Goals: Partial small-bowel obstruction resolved Outpatient follow-up with Gastroenterology call for appointment Health Concerns: Crohn's disease Plan of Treatment: Follow-up with primary care physician call for appointment. Assessment: As above Patient Instructions: Bowel Obstruction (GEN)
--- NOTE | 2023-07-03 14:15 | MHC.CM.PN ---
pt dcd home self care
== END 2023-07-03 15:11 | disposition home or self-care (01) | DRG 387 ==
LOC: HO.ED 07-02 03:31 → HO.EDOVER 07-02 04:23 → HO.S3 07-02 07:07
PROVIDERS: Student in an Organized Health Care Education/Training Program; Admitting Provider Internal Medicine; Emergency Provider Emergency Medicine; PCP Internal Medicine Medical Oncology; Visit Provider Hospitalist
DX: K50.012 Crohn's disease of small intestine with intestinal obstruction (principal); Z79.899 Other long term (current) drug therapy
CPT/HCPCS: 36415; 74177; 80048; 80053; 81003; 83690; 85025; 85027; 86140; 99221; 99285; J0737; J1644; J2270; J2405; J7120; Q9967

== ENCOUNTER → 2023-07-02 04:13 | Outpatient (BNV) | payer MEDICARE, SELFPAY | PROVIDERS: Admitting Provider Internal Medicine; Emergency Provider Emergency Medicine; PCP Internal Medicine Medical Oncology; Visit Provider Internal Medicine | DX: R11.2 Nausea with vomiting, unspecified (principal); K56.600 Partial intestinal obstruction, unspecified as to cause | CPT/HCPCS: 99223; 99239; 99499 ==

== ENCOUNTER → 2023-07-02 04:13 | Outpatient (BNV) | payer MEDICARE, SELFPAY | PROVIDERS: Admitting Provider Internal Medicine; Emergency Provider Emergency Medicine; PCP Internal Medicine Medical Oncology; Visit Provider Surgery | DX: R11.2 Nausea with vomiting, unspecified (principal); K56.600 Partial intestinal obstruction, unspecified as to cause | CPT/HCPCS: 99222; 99232 ==

== ENCOUNTER 2024-05-23 09:19 | Outpatient (REF) | payer MEDICARE, SELFPAY ==
--- OUTSIDE RECORDS SUMMARY | 2024-05-23 10:06 | XMS_ITS ---
Author Organization [facility] Address [address] [place] [address] Care Team Providers Care Spotter Name Role Phone Jeff Carias MD Primary Care Provider Unavailab Jeff Davila Unavailable [phone] Allergies No Known Allergies REASON FOR VISIT Patient presents today for CROHN'S, COLON SCREENING, SMALL BOWEL OBSTRUCTION RESOLVED Medications Medication SIG (Take, Route, Frequency, Duration) Notes Start Date End Date Status Fish Oil Active Vitamin D Active Multivitamin Active Social History Tobacco Use: Social History Observation Description Date Details (start date - stop date) Never Smoker NA - NA Tobacco Use/Smoking Question Answer Notes Patient is a nonsmoker Alcohol Screen Question Answer Notes Did you have a drink containing alcohol in the p ast year? No Points 0 Interpretation Negative Section Notes: Nonsmoker, no significant al cohol Problems Problem Type SNOMED Code ICD Code Onset Dates Problem Status W/U Status Risk Notes Problem Crohn's disease of small intestine (60792434) Crohn''s disease of small intestine with other complication (K50.018) Active confirmed Problem Colon cancer screening (708694443) Colon cancer screening (Z12.11) Active confirmed Vital Signs Blood pressure systolic 00 mm Hg 12/07/19 24 Blood pressure diastolic 00 mm Hg 024 Height 5 ft 2.5 in in 12/07/2023 Weight 150 lbs 12/07/2023 BMI 27.00 kg/m2 12/07/2023 Encounters Encounter Location Date Provider Diagnosis [facility] [address] [place] [address] 12/07/2023 Jeff Avila Crohn''s disease of small intestine with other complication K50.018 and Colon cancer screening Z12.11 Assessments Encounter Date Diagnosis (ICD Code) Assessment Notes Treatment Notes Treatment Clinical Notes Section Notes 12/07/2023 Crohn''s disease of small intestine with other complication (ICD-10 - K50.018) Stay on a relatively low residue/low roughage diet for the Crohn's Overall, Oriana appears quite well. She is not having any active symptoms of Crohn's disease at this time and I don't think she needs to be started on any specific medication for that. She reports that she would prefer to avoid medication unless absolutely necessary. We did review the hospitalization from June with a transient small bowel obstruction. Given the rapid improvement without needing any steroids and the CT description, I suspect the obstruction could very well have been related to some unrecognized dietary indiscretion with some increased roughage intake and/or adhesions. Fortunately, things resolved quickly and have not been problematic since that time. I did review with her that she should try to stay on a relatively low fiber and low roughage diet. At this point it does not appear that she needs any specific treatment for her underlying Crohn's disease. I did recommend a colonoscopy for screening purposes given that her last exam was over 10 years ago. We did review the rationale for that in regards to colon cancer prevention and/or early detection. We did review that the procedure would be done with monitored anesthesia care. I also advised her that the other purpose of the colonoscopy would be to reassess her anastomosis in regard to any active Crohn's and/or any possible stricture that may have developed at the anastomosis that may have contributed to her June hospitalization with the transient small bowel obstruction. I advised her that it would be important to know the status of the Crohn's disease in that area such that we could potentially put her on some treatment if indeed there is active Crohn's disease so as to avoid recurrent problems. If indeed there is evidence of a stricture we could potentially dilate it at that time with a balloon as well. Despite my detailed explanations of the reasons to have her undergo a colonoscopy she has opted to hold off on scheduling it at this time. Therefore, I did advise her to be careful with her diet in regard to avoiding any significant amounts of roughage. I have given her an appointment to see me again in about 6 months to review things further and advised her that we could possibly schedule her colonoscopy at that visit if she changes her mind and is agreeable at that time. I did advise her to contact me prior to the office visit if she has any problems or questions I can be of assistance with. Oriana was comfortable with this plan. Thank you again for allowing me to participate in Oriana's care. I shall continue to keep you a advised of her progress. 12/07/2023 Colon cancer screening (ICD-10 - Z12.11) Overall, Oriana appears quite well. She is not having any active symptoms of Crohn's disease at this time and I don't think she needs to be started on any specific medication for that. She reports that she would prefer to avoid medication unless absolutely necessary. We did review the hospitalization from June with a transient small bowel obstruction. Given the rapid improvement without needing any steroids and the CT description, I suspect the obstruction could very well have been related to some unrecognized dietary indiscretion with some increased roughage intake and/or adhesions. Fortunately, things resolved quickly and have not been problematic since that time. I did review with her that she should try to stay on a relatively low fiber and low roughage diet. At this point it does not appear that she needs any specific treatment for her underlying Crohn's disease. I did recommend a colonoscopy for screening purposes given that her last exam was over 10 years ago. We did review the rationale for that in regards to colon cancer prevention and/or early detection. We did review that the procedure would be done with monitored anesthesia care. I also advised her that the other purpose of the colonoscopy would be to reassess her anastomosis in regard to any active Crohn's and/or any possible stricture that may have developed at the anastomosis that may have contributed to her June hospitalization with the transient small bowel obstruction. I advised her that it would be important to know the status of the Crohn's disease in that area such that we could potentially put her on some treatment if indeed there is active Crohn's disease so as to avoid recurrent problems. If indeed there is evidence of a stricture we could potentially dilate it at that time with a balloon as well. Despite my detailed explanations of the reasons to have her undergo a colonoscopy she has opted to hold off on scheduling it at this time. Therefore, I did advise her to be careful with her diet in regard to avoiding any significant amounts of roughage. I have given her an appointment to see me again in about 6 months to review things further and advised her that we could possibly schedule her colonoscopy at that visit if she changes her mind and is agreeable at that time. I did advise her to contact me prior to the office visit if she has any problems or questions I can be of assistance with. Oriana was comfortable with this plan. Thank you again for allowing me to participate in Oriana's care. I shall continue to keep you a advised of her progress. 12/07/2023 Other We will discuss a colonoscopy when I see you in the spring Overall, Oriana appears quite well. She is not having any active symptoms of Crohn's disease at this time and I don't think she needs to be started on any specific medication for that. She reports that she would prefer to avoid medication unless absolutely necessary. We did review the hospitalization from June with a transient small bowel obstruction. Given the rapid improvement without needing any steroids and the CT description, I suspect the obstruction could very well have been related to some unrecognized dietary indiscretion with some increased roughage intake and/or adhesions. Fortunately, things resolved quickly and have not been problematic since that time. I did review with her that she should try to stay on a relatively low fiber and low roughage diet. At this point it does not appear that she needs any specific treatment for her underlying Crohn's disease. I did recommend a colonoscopy for screening purposes given that her last exam was over 10 years ago. We did review the rationale for that in regards to colon cancer prevention and/or early detection. We did review that the procedure would be done with monitored anesthesia care. I also advised her that the other purpose of the colonoscopy would be to reassess her anastomosis in regard to any active Crohn's and/or any possible stricture that may have developed at the anastomosis that may have contributed to her June hospitalization with the transient small bowel obstruction. I advised her that it would be important to know the status of the Crohn's disease in that area such that we could potentially put her on some treatment if indeed there is active Crohn's disease so as to avoid recurrent problems. If indeed there is evidence of a stricture we could potentially dilate it at that time with a balloon as well. Despite my detailed explanations of the reasons to have her undergo a colonoscopy she has opted to hold off on scheduling it at this time. Therefore, I did advise her to be careful with her diet in regard to avoiding any significant amounts of roughage. I have given her an appointment to see me again in about 6 months to review things further and advised her that we could possibly schedule her colonoscopy at that visit if she changes her mind and is agreeable at that time. I did advise her to contact me prior to the office visit if she has any problems or questions I can be of assistance with. Oriana was comfortable with this plan. Thank you again for allowing me to participate in Oriana's care. I shall continue to keep you a advised of her progress. Plan Of Treatment Treatment Notes Assessment Notes Crohn''s disease of small in testine with other complication Stay on a relatively low residue/low roughage diet for the Crohn's Other We will discuss a co lonoscopy when I see you in the spring Next Appt Details Follow Up: Spring 2024, Reas on: Provider Name:Jeff Avila , 06/06/2024 10:00:00 AM, [address] [place] [address], [address], [place], [address], Progress Notes * LIZET ORIANADOB:1945 (78 yo F)Acc No.[id number]:12/07/2023 Progress Notes Patient:?ORIANA HINDS Provider:?Jeff Avila MD :1945???Age:78 Y???Sex:Female D ate:12/07/2023 Address:[address] [place] [address] [id number] Pcp:Jeff Carias MD Subjective: * Chief Complaints: * ???Patient presents today fo r CROHN'S, COLON SCREENING, SMALL BOWEL OBSTRUCTION RESOLVED * HPI: ???incontinence:? I saw Oriana in consultation today in regard to her underlying history of Crohn's disease and discussion of colorectal cancer screening. She was kind enough to bring in some records from her 1979 surgery. ?As you know, Oriana is a healthy 78-year-old female who was diagnosed with Crohn's disease in 1978. At that time she underwent a laparotomy for a bowel perforation and had a resection of the terminal ileum, cecum, and appendix. The pathology was consistent with Crohn's disease involving the terminal ileum. She describes that after that she did very well and never needed to be on prednisone. She was followed by Dr. Perez for many years and had been on Pentasa with him up until about 2009. She describes her last colonoscopy was at approximately that time as well. She reports that there were no polyps but recalls being told that the anastomosis did appear to have some Crohn's disease. She reports that she has not seen a developer programmer since approximately 2009. ?In any event, she continued to do very well but this past June had a transient partial small bowel obstruction requiring a brief hospitalization. A CT scan describes some component of dilated small bowel proximal to the anastomosis with some thickening of the small bowel near the anastomosis. There is no report of any obvious inflammation nor perforation. She got better very quickly without any specific treatment such as steroids and was discharged in about 48 hours. Since discharge in June she has been doing fine. She does not recall having had any high-fiber or high residue food prior to that partial obstruction. ?She presently feels very well. She enjoys a good appetite and tends to eat a basically normal diet. She denies any significant heartburn or dysphagia. She does not specifically avoid high roughage foods. Her bowel movements have been regular and without any diarrhea, hematochezia, nor melena. She denies any significant early satiety, nausea, nor vomiting. She denies abdominal pain, jaundice, fevers, nor weight loss. She denies any known family history of colorectal cancer, inflammatory bowel disease, nor celiac disease. * ROS:?General/Constitutional:?Change in appetite?denies.?Chills?denies.?Fatigue?denies.?Ophthalmologic:?Comments?all negative.?ENT:?Comments?all negative.?Respiratory:?hemoptysis?denies.?Cough?denies.?Cardiovascular:?Chest pain?denies.?Orthopnea?denies.?Gastrointestinal:?Comments?See HPI for details.?Genitourinary:?Hematuria?denies.?Dysuria?denies.?Musculoskeletal:?Painful joints?denies.?Weakness?denies.?Skin:?Itching?denies.?Rash?denies.?Neurologic:?Headache?denies.?Seizures?denies.?Psychiatric:?Comments?all negative.? * Medical History:? * Surgical History:?Explorator y laparotomy for Crohn's disease with resection of the distal ileum, cecum, and appendix 1979Hemorrhoids 1975Tonsillectomy and adenoidectomy 89 * Hospitalization/Major Diagno stic Procedure:? * Family History:?Father: dece ased, colon cancer , diagnosed with Colon cancer.?Mother: .? * Social History:?Tobacco Use:?Tobacco Use/Smoking?Patient is a?nonsmoker.?Drugs/Alcohol:?Alcohol Screen?Did you have a drink containing alcohol in the past year??No,?Points?0,?Interpretation?Negative.?Miscellaneous:?Marital status: . Occupation: retired. ???Nonsmoker, no significant alcohol. * Medications:?TakingMultivita min Fish Oil Vitamin D Medication List reviewed and reconciled with the patientTaking Multivitamin Taking Fish Oil Taking Vitamin D Medication List reviewed and reconciled with the patient * Allergies:?N.K.D.A.yes[Aller gies Verified] Objective: * Vitals:?Wt: 150 lbs, Ht: 5 f t 2.5 in, BMI:27.00 Index, BP: 00/00 mm Hg. * Examination: ???General Examination: ?GENERAL APPEARANCE:?pleasant, well nourished, well developed, in no acute distress.?EYES:?sclera non-icteric.?ORAL CAVITY:?mucosa moist.?NECK/THYROID:?no cervical lymphadenopathy, neck supple.?SKIN:?nonjaundiced, no spider angiomata.?HEART:?S1, S2 normal.?LUNGS:?clear to auscultation bilaterally.?ABDOMEN:?normal bowel sounds, no guarding or rigidity, no guarding or rigidity, no masses palpable, soft, nontender, nondistended.?EXTREMITIES:?no edema.?NEUROLOGIC:?alert and oriented.? Assessment: * Assessment: 1.?Crohn''s disease of small intestine with other complication - K50.018 (Primary)?2.?Colon cancer screening - Z12.11? Overall, Oriana appears [place] well. She is not having any active symptoms of Crohn's disease at this time and I don't think she needs to be started on any specific medication for that. She reports that she would prefer to avoid medication unless absolutely necessary. We did review the hospitalization from June with a transient small bowel obstruction. Given the rapid improvement without needing any steroids and the CT description, I suspect the obstruction could very well have been related to some unrecognized dietary indiscretion with some increased roughage intake and/or adhesions. Fortunately, things resolved quickly and have not been problematic since that time. I did review with her that she should try to stay on a relatively low fiber and low roughage diet. At this point it does not appear that she needs any specific treatment for her underlying Crohn's disease. I did recommend a colonoscopy for screening purposes given that her last exam was over 10 years ago. We did review the rationale for that in regards to colon cancer prevention and/or early detection. We did review that the procedure would be done with monitored anesthesia care. I also advised her that the other purpose of the colonoscopy would be to reassess her anastomosis in regard to any active Crohn's and/or any possible stricture that may have developed at the anastomosis that may have contributed to her June hospitalization with the transient small bowel obstruction. I advised her that it would be important to know the status of the Crohn's disease in that area such that we could potentially put her on some treatment if indeed there is active Crohn's disease so as to avoid recurrent problems. If indeed there is evidence of a stricture we could potentially dilate it at that time with a balloon as well. Despite my detailed explanations of the reasons to have her undergo a colonoscopy she has opted to hold off on scheduling it at this time. Therefore, I did advise her to be careful with her diet in regard to avoiding any significant amounts of roughage. I have given her an appointment to see me again in about 6 months to review things further and advised her that we could possibly schedule her colonoscopy at that visit if she changes her mind and is agreeable at that time. I did advise her to contact me prior to the office visit if she has any problems or questions I can be of assistance with. Oriana was comfortable with this plan. Thank you again for allowing me to participate in Oriana's care. I shall continue to keep you a advised of her progress. Plan: * Treatment: 2.?Others? Notes: We will discuss a colonoscopy when I see you in the spring?? * Procedure Codes:?1036F TOBAC CO [id number] BP SCR NOT PRFRM REC REASON NOS * Preventive Medicine:? ??Urinary Incontinence:?Urinary Incontinence?Assessment:?Absent,?Plan of care documented:?No, reason not specified.? ??Screenings:?Fall Risk Screening?Fall Risk Assessment:?No falls in the past year,?Screening:?No falls in the past year,?Assessment:?Not performed, no reason specified,?Plan of Care:?Not documented, no reason specified.? * Follow Up:?Spring 2024 * * Sign off status: Completed true * Provider:?Jeff Avila MD Date:? 024 Generated for Yudy trejo/Anna/Rondaitting on:?05/23/2024 10:06 AM EDT History and Physical Notes * HPI (History of Present Illness) Category Sub-Category Detail Notes Category Not es incontinence I saw Oriana in consultation today in regard to her underlying history of Crohn's disease and discussion of colorectal cancer screening. She was kind enough to bring in some records from her 1978 surgery. As you know, Oriana is a healthy 78-year-old female who was diagnosed with Crohn's disease in 1978. At that time she underwent a laparotomy for a bowel perforation and had a resection of the terminal ileum, cecum, and appendix. The pathology was consistent with Crohn's disease involving the terminal ileum. She describes that after that she did very well and never needed to be on prednisone. She was followed by Dr. Perez for many years and had been on Pentasa with him up until about 2009. She describes her last colonoscopy was at approximately that time as well. She reports that there were no polyps but recalls being told that the anastomosis did appear to have some Crohn's disease. She reports that she has not seen a developer programmer since approximately 2009. In any event, she continued to do very well but this past June had a transient partial small bowel obstruction requiring a brief hospitalization. A CT scan describes some component of dilated small bowel proximal to the anastomosis with some thickening of the small bowel near the anastomosis. There is no report of any obvious inflammation nor perforation. She got better very quickly without any specific treatment such as steroids and was discharged in about 48 hours. Since discharge in June she has been doing fine. She does not recall having had any high-fiber or high residue food prior to that partial obstruction. She presently feels very well. She enjoys a good appetite and tends to eat a basically normal diet. She denies any significant heartburn or dysphagia. She does not specifically avoid high roughage foods. Her bowel movements have been regular and without any diarrhea, hematochezia, nor melena. She denies any significant early satiety, nausea, nor vomiting. She denies abdominal pain, jaundice, fevers, nor weight loss. She denies any known family history of colorectal cancer, inflammatory bowel disease, nor celiac disease. Examination Category Sub-Category Detail Notes Category Not es General Examination GENERAL APPEARANCE: pleasant , well nourished, well developed, in no acute distress HEAD: EYES: sclera non-icteric EARS: NOSE: THROAT: NECK/THYROID: no cervical lymphade nopathy, neck supple HEART: S1, S2 normal CHEST: LUNGS: clear to auscultatio n bilaterally ABDOMEN: normal bowel sounds, no guarding or rigidity, no guarding or rigidity, no masses palpable, soft, nontender, nondistended NEUROLOGIC: alert and oriented SKIN: nonjaundiced, no spi janeth angiomata EXTREMITIES: no edema PERIPHERAL PULSES: BACK: BREASTS: MUSCULOSKELETAL: MALE GENITOURINARY: LYMPH NODES: RECTAL EXAM: FEMALE GENITOURINARY: ORAL CAVITY: mucosa moist
--- OUTSIDE RECORDS SUMMARY | 2024-05-23 10:06 | XMS_ITS | Patient Health Record ---
Author Organization [facility] Address [address] [place] [address] Care Team Providers Care Gambreler Name Role Phone Jeff Carias MD Primary Care Provider Unavailab Jeff Davila Unavailable [phone] Allergies No Known Allergies Reason For Referral Referring Provider First Name Jeff Referring Provider Last Name Aretha Referring Provider Speciality Oncology Referred Organization [facility] Referred Provider Jeff Allison Referred Address [address] [facility],[place],[address], Referred Provider Specialty Gastroentero logy General Notes Cristiana Gaxiola 024 03:04:35 PM EDT > REQUESTED A GLEN REFERRAL FROM DR OWEN OFFICE FOR VISIT WITH DR ALLISON ON 11-22-2023, Cristiana Gaxiola 10/25/2023 08:11:00 AM EDT > no referral required since the same robinson of care as Dr. Carias Referral Priority Routine Medications Medication SIG (Take, Route, Frequency, Duration) [...] Problem Status W/U Status Risk Notes Problem Colon cancer screening (179982547) Colon cancer screening (Z12.11) Active confirmed Problem Crohn's disease of small intestine (47219689) Crohn''s disease of small intestine with other complication (K50.018) Active confirmed Vital Signs Blood pressure diastolic 00 mm Hg 12/07/2023 Height 5 ft 2.5 in in 12/07/2023 Blood pressure systolic 00 mm Hg 12/07/2023 Weight 150 lbs 12/07/2023 BMI 27.00 kg/m2 12/07/2023 Encounters Encounter Location Date Provider Diagnosis [facility] [address] [place] [address] 12/07/2023 Jeff Allison Crohn''s disease of small intestine with other complication K50.018 and Colon cancer screening Z12.11 Assessments Encounter Date Diagnosis (ICD Code) Assessment Notes Treatment Notes Treatment Clinical Notes Section Notes 12/07/2023 Colon cancer screening (ICD-10 - Z12.11) [...] you a advised of her progress. 12/07/2023 Crohn''s disease of small intestine with [...] advised of her progress. Plan Of Treatment Next Appt Details Provider Name:Jeff Anuel Allison , 06/06/2024 10:00:00 AM, [address] [place] [address], [address], [place], [address], Insurance Providers Payer Name Payer Address Payer Phone Subscriber Number Group Number Insured Name Patient Relationship to Insured Coverage Start Date Coverage End Date [facility] [address] [place] Aguilar [phone] [id number] LIZET ORIANA Self - patient is the insured Medical (General) History Medical History History ICD Code Denies [place],DM,CVA,Lung disease,renal dise ase Crohn's disease with surgery as below. She was diagnosed in 1978 when she underwent emergency exploratory laparotomy. She was on some Pentasa up until 2009 under the care of Dr. Perez. She describes her last colonoscopy being in approximately 2009 and being told that there appeared to be some Crohn's activity at the anastomosis. She stopped her Pentasa at around that same time and had not seen a checkering machine operator since that time. Hospitalization in June of 2023 for a transient partial small bowel obstruction that resolved within 48 hours on its own. The CT scan describes some thickening in the distal small bowel consistent with Crohn's but no significant surrounding inflammation, perforation, nor abscess. She did not require any steroids nor NG tube decompression. Surgical History Surgery Date(Month/Year) Exploratory laparotomy for C rohn's disease with resection of the distal ileum, cecum, and appendix 1978 Hemorrhoids 1974 Tonsillectomy and adenoidectomy 1953
--- OUTSIDE RECORDS SUMMARY | 2024-05-23 10:06 | XMS_ITS ---
Author Organization Jeff Carias III, MD Address [address] [place] [address] Care Team Providers Care Batter Depositor Name Role Phone Jeff Carias Primary Care Provider [phone] Allergies Allergen (clinical drug ingredient) Drug/Non Drug [...] Date Provider Diagnosis Jeff Carias III, MD [address] [place] [address] [place] [address] 12/29/2023 Jeff Carias Diplopia H53.2 ; Hypothyroidism [...] 4 Weeks, Reason: OV Provider Name:Jeff Carias, 06/05/2024 09:30:00 AM, [address] [place] [address] [address], [place], [address], Progress Notes * Oriana HINDS ADOB: [birth year] (78 yo F)Acc No.[id number]:12/29/2023 Progress Notes Patient:?Oriana HINDS Provider:?Jeff Carias MD :1945???Age:78 Y???Sex:Female D ate:12/29/2023 Address:[address] [place], [place] [id number] Subjective: * Chief Complaints: * ???Right arm painShoulder mu scle spasmNerve impingement neckCervical radiculopathyHypothyroidism * HPI: ???COVID-19 Screening:?Questions?Have you experienced fever, chills, cough, sore throat, shortness of breath, difficulty breathing, muscle aches, loss of taste or smell??No ?Have you been exposed to the virus within the last 10 days??No ?Have you travelled internationally in the last 10 days??No ?Have you been exposed to COVID-19 in the past??No ???:?The patient, a 78-year-old female, presented with a [...] were not mentioned in the conversation. * ROS:?General/Constitutional:?pain?Neck, right shoulder, right.?Chills?denies.?Fatigue?admits.?Fever?denies.?ENT:?Decreased hearing?denies.?Endocrine:?Denies?Weakness.?Respiratory:?Cough?denies.?Cardiovascular:?Chest pain with exertion?denies.?Dyspnea on exertion?denies.?Shortness of breath?denies.?Gastrointestinal:?Constipation?occasional.?Decreased appetite?denies.?Diarrhea?denies.?Heartburn?occasional.?Nausea?denies.?Rectal bleeding?denies.?Vomiting?denies.?Hematology:?bruising?denies.?petechiae?denies.?Swollen glands?none have been noted.?Genitourinary:?Frequent urination?denies.?Musculoskeletal:?Muscle aches?denies.?Painful joints?Neck wwith range of motion, right shoulder down right arm.?Sciatica?denies.?Weakness?denies.?Skin:?Itching?denies.?Rash?denies.?Skin lesion(s)?denies.?Neurologic:?Difficulty speaking?denies.?Dizziness?denies.?Headache?denies.?Low back pain?denies.?Psychiatric:?Depressed mood?denies.? * Medical History:? * Surgical History:?T&A partia l ileocolectomy tubal ligation colonoscopy 2008dental extractions 07/2022No history * Hospitalization/Major Diagno stic Procedure:?No history * Family History:?Father: dece ased, colon cancer, diagnosed with Cancer.?Mother: alive, hypertension,hypothyroidism, gout, cataracts, diagnosed with HTN.?Children: alive.?Son(s): alive.?Daughter(s): alive.?Siblings: alive, Pre Diabetic.?3 brother(s) , 1 sister(s) . 2 daughter(s) - healthy. .? Her brother had prostate cancer. Her sister had ovarian cancer. * Social History:?Tobacco Use:?Tobacco Use/Smoking?.?Drugs/Alcohol:?Drugs?Have you used drugs other than those for medical reasons in the past 12 months??No ?Alcohol Screen?Did you have a drink containing alcohol in the past year??No ?Points?0 ?Interpretation?Negative ???She is and has 2 children. 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 She lives in [place], [place]. No history of smoking cigarettes. * Medications:?TakingFish Oil 1200 MG Capsule 2 capsules Orally [...] reviewed and reconciled with the patient * Allergies:?No Known Drug All ergyno[Allergies Verified] Objective: * Vitals:?Ht: 63, Wt:150, BMI: 26.57, BP:140/84, HR:74, Temp:97.9, Ht-cm: 160.02, Wt-k.04. * Examination: ???General Examination: ?GENERAL APPEARANCE:?pleasant, well nourished, well developed, in no acute distress, calm and relaxed, overweight, elderly woman.?HEAD:?atraumatic, normocephalic.?EYES:?eomi, perrla, anicteric, conjugate.?EARS:?normal.?NOSE:?septum intact.?ORAL CAVITY:?normal, unremarkable.?NECK/THYROID:?no jugular venous distention, no carotid bruit, thyroid normal, Diminished range of motion with pain to right rotation and right lateral flexion, pain is experienced right neck right shoulder and down right arm.?LYMPH NODES:?no enlarged lymph nodes,spleen normal.?SKIN:?no suspicious lesions, anicteric.?HEART:?no clicks, gallops, murmurs, or rubs, regular rhythm, S1, S2 normal, no s3, or vascular bruits.?LUNGS:?clear to auscultation .?BREASTS:?Not examined.?ABDOMEN:?bowel sounds normal, no ascites, no organomegaly, no mass, overweight.?RECTAL EXAM:?not examined.?MUSCULOSKELETAL:?extremities unremarkable, no clubbing, cyanosis or edema, Passive range of motion of right shoulder and elbow is without pain, range of motion of the neck reproduces the pain.?PERIPHERAL PULSES:?normal.?NEUROLOGIC:?alert and oriented, cranial nerves 2-12 grossly intact, deep tendon reflexes 2+ symmetrical, motor strength normal upper and lower extremities, sensory exam intact.?PSYCH:?alert, oriented.? Assessment: * Assessment: 1.?Hypothyroidism - E03.9 (P rimary)???Notes :Her thyroid function tests have been in the normal range with the TSH 4.35. No change in her regimen was made. She will continue on her current dose.???2.?Diplopia - H53.2???Notes :She has had no further diplopia and this problem has resolved???3.?Cervical radiculopathy - M54.12???Notes :The pain is reproduced by rotation and flexion of the neck to the right.? She will use a heating pad and Tylenol and ibuprofen.? She will refrain from heavy lifting.? Follow-up was arranged.? A muscle relaxant, cyclobenzaprine, was prescribed. Imaging will be done if this does not improve.???4.?Osteopenia - M85.80???Notes :She has had no apparent fractures. She will continue on her current calcium tablets.???5.?Hyperlipidemia - E78.5???Notes :Her lipids have improved since the last determination. Her total cholesterol is slightly out of range. Her triglycerides have improved but are still elevated. We reviewed diet today.???6.?Over weight - E66.3???Notes :Her weight is stable at 148 pounds and a body mass index 27. I recommend a gradual slow and steady weight loss of 1/2 pound per week through a diet restricted in calories.??? Plan: * Treatment: * Procedure Codes:? * Preventive Medicine:? ??Counseling:?Care goal follow-up plan:?Counseling for abnormal BMI given?Yes ?Above Normal BMI Follow-up?Dietary management education, guidance, and counseling, Dietary needs education * Follow Up:?4 Weeks (Reason: OV) * Images: * Sign off status: Completed true * Provider:?Jeff Carias MD Date:?12/05 Generated for Printi ng/Faloug/eTransmitting on:?05/23/2024 10:05 AM EDT History and Physical Notes * HPI (History of Present Illness) Category Sub-Category Detail Notes COVID-19 Screening Questions Have you had any new onset fever, chills, cough, congestion, sore throat, shortness of breath, muscle aches?: No Have you been exposed to the virus withi n the last 10 days?: No Have you travelled internationally in last 10 days?: No Have you been [...]
--- OUTSIDE RECORDS SUMMARY | 2024-05-23 10:06 | XMS_ITS ---
Author Organization Jeff Carias III, MD Address [address] [place] [address] Care Team Providers Care Equipment Sterilizer Name Role Phone Jeff Carias Primary Care [...] Date Provider Diagnosis Jeff Carias III, MD [address] [place] [address] [place] [address] 01/29/2024 Jeff Carias Diplopia H53.2 ; Hypothyroidism [...] under the care of Dr. Steiner, her automatic nailing machine feeder Her last colonoscopy was in 2011 and [...] Reason: OV, Annual physical Provider Name:Jeff Carias, 06/05/2024 09:30:00 AM, [address] [place] [address] [place], [address], Progress Notes * Oriana HINDS ADOB: [birth year] (78 yo F)Acc No.[id number]:01/29/2024 Progress Notes Patient:?Oriana HINDS Provider:?Jeff Carias MD :1945???Age:78 Y???Sex:Female D ate:01/29/2024 Address:[address] [place], [place] [id number] Subjective: * Chief Complaints: * ???Cervical radiculopathySho ulder painCrohn's diseaseHypothyroidismHyperlipidemiaOsteopenia * HPI: ???COVID-19 Screening:?Questions?Have you experienced fever, chills, cough, sore throat, shortness of breath, difficulty breathing, muscle aches, loss of taste or smell??No ?Have you been exposed to the virus within the last 10 days??No ?Have you travelled internationally in the last 10 days??No ?Have you been exposed to COVID-19 in the past??No ???:?The patient, a 78-year-old female, presented with pain [...] The patient denied any double vision. * ROS:?General/Constitutional:?Admits?pain,?Neck and right shoulder with motion.?Chills?denies.?Fatigue?admits.?Fever?denies.?ENT:?Decreased hearing?denies.?Respiratory:?Cough?denies.?Cardiovascular:?Chest pain with exertion?denies.?Dyspnea on exertion?denies.?Shortness of breath?denies.?Gastrointestinal:?Constipation?denies.?Decreased appetite?denies.?Diarrhea?that is infrequent.?Heartburn?denies.?Nausea?denies.?Rectal bleeding?denies.?Vomiting?denies.?Hematology:?bruising?denies.?petechiae?denies.?Swollen glands?none have been noted.?Genitourinary:?Frequent urination?denies.?Musculoskeletal:?Muscle aches?denies.?Painful joints?denies.?Sciatica?denies.?Weakness?denies.?Skin:?Itching?denies.?Rash?denies.?Skin lesion(s)?denies.?Neurologic:?Difficulty speaking?denies.?Dizziness?denies.?Headache?denies.?Low back pain?denies.?Admits?Tremor.?Psychiatric:?Depressed mood?denies.? * Medical History:? * Surgical History:?T&A [...] had ovarian cancer. * Social History:?Tobacco Use:?Tobacco Control (Standard)?Tobacco use:?Nonsmoker ???She is and has 2 children. 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 She lives in [place], [place]. No history of smoking cigarettes. * [...] Objective: * Vitals:?Ht: 63, Wt:150, BMI: 26.57, BP:136/72, HR:83, Temp:98.4, Ht-cm: 160.02, Wt-k.04. * Examination: ???General Examination: ?GENERAL APPEARANCE:?pleasant, well nourished, well developed, in no acute distress, calm and relaxed, overweight, woman.?HEAD:?atraumatic, normocephalic.?EYES:?eomi, perrla, anicteric, conjugate.?EARS:?normal.?NOSE:?septum intact.?ORAL CAVITY:?normal, unremarkable.?NECK/THYROID:?no jugular venous distention, no carotid bruit, thyroid normal.?LYMPH NODES:?no enlarged lymph nodes,spleen normal.?SKIN:?no suspicious lesions, anicteric.?HEART:?no clicks, gallops, murmurs, or rubs, regular rhythm, S1, S2 normal, no s3, or vascular bruits.?LUNGS:?clear to auscultation .?BREASTS:?Not examined.?ABDOMEN:?bowel sounds normal, no ascites, no organomegaly, no mass, overweight.?RECTAL EXAM:?not examined.?MUSCULOSKELETAL:?extremities unremarkable, no clubbing, cyanosis or edema, Improved pain with range of motion of shoulders and neck.?PERIPHERAL PULSES:?normal.?NEUROLOGIC:?alert and oriented, cranial nerves 2-12 grossly intact, deep tendon reflexes 2+ symmetrical, motor strength normal upper and lower extremities, sensory exam intact.?PSYCH:?alert, oriented.? : ???Neck:Stiffness has improved, Hand: Severe pain, especially at night, Tremor: Essential tremor diagnosed. ??? Assessment: * Assessment: 1.?Hypothyroidism - E03.9 (P rimary)???Notes :Her thyroid function tests have been in the normal range with the TSH 4.35. No change in her regimen was made. She will continue on her current dose.???2.?Diplopia - H53.2???Notes :She has had no further diplopia and this problem has resolved???3.?Hyperlipidemia - E78.5???Notes :Comprehensive blood work with a ffasting lipid profile has been ordered prior to her next visit.? No change in her regimen was made today.???4.?Vitamin D deficiency - E55.9???Notes :Continued on her vitamin D supplement.???5.?Over weight - E66.3???Notes :Her weight is stable at 159 pounds and a body mass index 27. I recommend a gradual slow and steady weight loss of 1/2 pound per week through a diet restricted in calories.???6.?Osteopenia - M85.80???Notes :She has had no apparent fractures. She will continue on her current calcium tablets.???7.?Crohns disease - K50.90???Notes :Her inflammatory bowel diseases tolerable unstable. She remains under the care of Dr. Steiner, her automatic nailing machine feeder Her last colonoscopy was in 2011 and was unremarkable except for the Crohn's disease.??? Plan: * Treatment: 2.?Hyperlipidemia?LAB: PROFILE, FASTING (COMPREHENSIVE METABOLIC) ?LAB: CBC WITH AUTO DIFF ?LAB: Lipid Panel ?LAB: Vitamin D 25-OH Total 3.?Vitamin D deficiency?LAB: PROFILE, FASTING (COMPREHENSIVE METABOLIC) ?LAB: CBC WITH AUTO DIFF ?LAB: Lipid Panel ?LAB: Vitamin D 25-OH Total * Procedure Codes:? * Preventive Medicine:? ??Counseling:?Care goal follow-up plan:?Counseling for abnormal BMI given?Yes ?Above Normal BMI Follow-up?Dietary management education, guidance, and counseling, Dietary needs education * Follow Up:?As Scheduled, Mansi ua physical in June (Reason: OV, Annual physical) * Images: * Sign off status: Completed true * Provider:?Jeff Carias MD Date:?01/05 Generated for Printi ng/Faloug/eTransmitting on:?05/23/2024 10:06 AM EDT History and Physical [...]
--- OUTSIDE RECORDS SUMMARY | 2024-05-23 10:06 | XMS_ITS ---
Author Organization Jeff Carias III, MD Address [address] [place] [address] [address] [place] [address] Care Team Providers Care Process Design Chemical Engineer Name Role Phone Jeff Carias Primary Care Provider [phone] REASON FOR VISIT follow up Social History Sex Assigned At : Social History Observation Description Sex Assigned At Female Encounters Encounter Location Date Provider Diagnosis Jeff Carias III, MD [address] [place] [address] [place] [address] 08/24/2023 Jeff Carias Plan Of Treatment Next Appt Details Provider Name:Jeff Carias, 06/05/2024 09:30:00 AM, [address] [place] [address] [address], [place], [address], Progress Notes * Oriana HINDS ADOB: (78 yo F)Acc No.[id number]:08/24/2023 Progress Notes Patient:?Oriana HINDS Xiang Provider:?Jeff Carias MD :1945???Age:77 Y???Sex:Female D ate:08/24/2023 Address:[address] [place] [id number] Subjective: * Chief Complaints: * ???1. Follow up. * Medical History:? Objective: * Vitals:? Assessment: Plan: * Treatment: * Images: * The named appointment provid er may or may not be the originator of this progress note, and it is not deemed complete until electronically signed by the appointment provider. Sign off status: Pending * Provider:?Jeff Carias MD Date:?08/05 Generated for Yudy trejo/Anna/Daniela on:?05/23/2024 10:06 AM EDT
--- OUTSIDE RECORDS SUMMARY | 2024-05-23 10:06 | XMS_ITS | Patient Health Record ---
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 Laundry Machine Operator Name Role Phone Jeff Carias Primary Care Provider [phone] Allergies Allergen (clinical drug ingredient) Drug/Non Drug Allergy documented on EMR Reaction Allergy Type Onset Date Status No Known Drug Allergy Unknown Drug Allergy Active Results Component Value Reference Range Notes URINE DIP STICK Reviewed date:06/05/2023 09:48:00 AM Interpretation: Performing Lab: Notes/Report: SG 1.010 1.005 - 1.025 pH 5.0 5.0 - 9.0 MAIA 70 Negative - NIT Negative Negative - PRO 15 Negative - Trace GLU Negative Negative - KET Negative Negative - UBG 0.2 0.1 - 1.8 DARBY Negative 0.2 - 1.3 BLD Negative Negative - Menstrating No Complete Blood Count Auto Di ff Reviewed date:05/27/2023 01:40:45 PM Interpretation: Performing Lab:[facility], [address] [place] [phone] Notes/Report: White Blood Count 6.7 4.8-10.8 X10*3/uL [...] 0.0-0.2 /100WBC Neutrophils Absolute Auto 3.2 2.0-8.3 x10*3/uL Imm Gran Abs Auto 0.02 0.00-0.03 X10*3/uL Lymphocytes Absolute Auto 2.9 1.2-4.9 X10*3/uL Monocytes Absolute Auto 0.5 0.1-1.2 X10*3/uL Eosinophils Absolute Auto 0.1 0.0-0.4 X10*3/uL Basophils Absolute Auto 0.1 0.0-0.2 X10*3/uL NRBC Abs Auto 0.000 0.0-0.012 X10*3/uL Comprehensive [place]. Panel Fa st Reviewed date:05/27/2023 01:40:45 PM Interpretation: Performing Lab:[facility], [address] [place] [phone] Notes/Report: Sodium 143 135-145 mmol/L Potassium 4.0 3.3-5.1 mmol/L Chloride 107 96-108 mmol/L Carbon Dioxide 27 22-29 mmol/L Anion Gap 13 12-20 Blood Urea Nitrogen 12 9-16 mg/dL Creatinine 0.76 0.5-1.4 mg/dL Estimated Glomerular Filt Rate > 60 NOTE: For -[place]iger[place] individuals, multiply the result by 1.210. Chronic [...] Panel Reviewed date:05/27/2023 01:40:45 PM Interpretation: Performing Lab:[facility], [address] [place] [phone] Notes/Report: Triglycerides 187 <150 mg/dL Desirable Triglyceride: [...] Hormone Reviewed date:05/27/2023 01:40:45 PM Interpretation: Performing Lab:[facility], [address] [place] [phone] Notes/Report: Thyroid Stimulating Hormone 4.35 0.32-4.0 uIU/mL Note: A sustained TSH level above 2.5 uIU/mL may warrant further investigation. TSH 3rd Generation ([facility]) Lyme IgG/IgM w/reflex to WB Reviewed date:07/09/2023 01:52:42 PM Interpretation: Performing Lab:[facility], [address] [place] [phone] Notes/Report: Lyme Abs Screen <0.90 Index Interpretation [...] is apparent. THIS TEST WAS PERFORMED AT: [facility] [address] [place] [phone] HOLLY WEAVER MD Lyme Blot TNP Complete Blood Count Auto Di ff Reviewed date:07/09/2023 01:52:42 PM Interpretation: Performing Lab:[facility], [address] [place] [phone] Notes/Report: White Blood Count 4.4 4.8-10.8 X10*3/uL Red Blood Count 4.59 4.20-5.50 X10*6/uL Hemoglobin 12.9 12.0-16.0 g/dl Hematocrit 38.3 37.0-47.0 % Mean Corpuscular Volume 83.4 80.0-98.0 fL Mean Corpuscular Hemoglobin 28.1 27.0-33.0 pg Mean Corpuscular HGB Conc 33.7 31.0-35.0 g/dl Red Cell Distribution Width 13.7 11.0-16.0 % Platelet Count 312 160-400 X10*3/uL Mean Platelet Volume 9.1 9.4-12.3 fL Neutrophils Percent Auto 80.9 45-73 % Imm Gran Pct Auto 0.2 0.0-0.4 % Lymphocytes Percent Auto 8.2 20-40 % Monocytes Percent Auto 10.2 2-11 % Eosinophils Percent Auto 0.0 0-4 % Basophils Percent Auto 0.5 0-2 % NRBC Pct Auto 0.0 0.0-0.2 /100WBC Neutrophils Absolute Auto 3.6 2.0-8.3 x10*3/uL Imm Gran Abs Auto 0.01 0.00-0.03 X10*3/uL Lymphocytes Absolute Auto 0.4 1.2-4.9 X10*3/uL Monocytes Absolute Auto 0.5 0.1-1.2 X10*3/uL Eosinophils Absolute Auto 0.0 0.0-0.4 X10*3/uL Basophils Absolute Auto 0.0 0.0-0.2 X10*3/uL NRBC Abs Auto 0.000 0.0-0.012 X10*3/uL Comprehensive Met. Panel Reviewed date:07/09/2023 01:52:42 PM Interpretation: Performing Lab:[facility], [address] [place] [phone] Notes/Report: Sodium 139 135-145 mmol/L Potassium 4.4 3.3-5.1 mmol/L Chloride 104 96-108 mmol/L Carbon Dioxide 22 22-29 mmol/L Anion Gap 17 12-20 Blood Urea Nitrogen 18 9-16 mg/dL Creatinine 0.90 0.5-1.4 mg/dL Creatinine Clr Calc Pharmacy 48.8 Provided height and weight: 157.48 cm, 68.039 kg. eGFR (calculated from the MDRD study equation) and eCrCl (calculated from the Cockcroft-Gault equation) are based on different parameters and may not yield comparable results. If eCrCl result is absurd, please check patient's height/weight. Estimated Glomerular Filt Rate > 60 NOTE: For -Nigerien individuals, multiply the result by 1.210. Chronic Kidney Disease: Estimated GFR < 60 mL/min/1.73m2 Severe Kidney Disease: Estimated GFR < 15 mL/min/1.73m2 Glucose Random 146 60-115 mg/dL Calcium 8.6 8.4-10.2 mg/dL Bilirubin Total 0.8 0.0-1.0 mg/dL Aspartate Amino Transferase 18 5-31 U/L Alanine Aminotransferase 14 0-31 U/L Total Protein 6.4 6.5-8.0 g/dL Albumin Level 3.6 3.5-5.0 g/dL Alkaline Phosphatase 65 39-117 U/L UA CC w/rflx Micro + Cult Reviewed date:07/09/2023 01:52:42 PM Interpretation: Performing Lab:[facility], [address] [place] [phone] Notes/Report: Urine, Clean Catch Color Urine Yellow Appearance Urine Clear PH 5.5 5.0-9.0 Glucose Urine UA Negative Negative mg/dL Urine Blood Negative Negative Specific [place] - Urine >= 1.030 1.005-1.025 Urine Protein Trace Neg-Trace mg/dL Urine Ketones Trace Negative mg/dL Nitrite Urine Negative Negative Leukocyte Esterase Urine Negative Negative CT abdomen pelvis w con Reviewed date:07/09/2023 01:52:42 PM Interpretation: Performing Lab: Notes/Report: [address] [address] [address] Scan Report Signed Patient: Oriana Hinds MR#: [id number] [birth year] : 1945 Acct:[id number] Age/Sex: 77 / F ADM Date: 07/01/23 Loc: HO.ED Attending Dr: Ordering Physician: Marielena Riley MD Date of Service: 07/02/23 Procedure(s): CT abdomen pelvis w IV con Accession Number(s): [id number] cc: Jeff Carias MD; Marielena Riley MD EXAMINATION: CT ABDOMEN AND PELVIS WITH CONTRAST CLINICAL INFORMATION: Pain. History of Crohn's disease. Concern for bowel obstruction. COMPARISON: None available. TECHNIQUE: Multidetector volumetric images were obtained from the superior aspect of the liver through the pubic symphysis following administration 85 mL of Omnipaque 350 intravenous contrast. Sagittal and coronal reformatted images were obtained on the technologist's workstation. Oral contrast: No This CT examination was performed using dose optimization techniques as appropriate, variously including the following: *Automated exposure control *Adjustment of mA and/or kV according to patient size (this includes techniques or standardized protocols for targeted exams where dose is matched to indication/reason for exam; i.e. extremities or head) *Use of iterative reconstruction technique DLP: 477 mGy-cm FINDINGS: LUNG BASES: There is scarring and/or subsegmental atelectasis at the right lung base. LIVER, GALLBLADDER, AND BILIARY TREE: There are multiple scattered hepatic hypodensities measuring up to 2.6 cm left lobe the liver likely multiple cysts. There is no intrahepatic biliary duct dilatation. The gallbladder is unremarkable with no evidence of radiopaque gallstones, gallbladder wall thickening, or obvious pericholecystic inflammatory changes. PANCREAS: Unremarkable. SPLEEN: Unremarkable. ADRENAL GLANDS: Unremarkable. KIDNEYS AND URETERS: The kidneys are normal in size, shape, and attenuation. No hydronephrosis, hydroureter, or calculi seen. No perinephric stranding. There are a few scattered bilateral subcentimeter hypodensities too small to characterize but likely small cysts. BLADDER: Unremarkable. GASTROINTESTINAL TRACT: There are distended/dilated mid to distal small bowel loops containing fluid and some stool-like material distally extending to the level of a thickened terminal small bowel within the pelvis. The appendix is not identified. ABDOMINAL WALL: No significant hernia is appreciated. LYMPH NODES: Normal. VASCULAR: Unremarkable. PELVIC VISCERA: Pelvic organs are unremarkable. There is a small amount of free fluid within the pelvis. OSSEOUS STRUCTURES: There is diffuse thoracolumbar disc degenerative change. CT/CT abdomen pelvis w IV con IMPRESSION: 1. Findings consistent with partial distal small bowel obstruction with transition point in the pelvis. There is a thickened terminal small bowel loop within the pelvis likely secondary to patient's known Crohn's disease.. 2. Multiple hepatic hypodensities likely cysts. 3. Small amount of free fluid within the pelvis. Fleischner guidelines were followed. Dictated By: Jeff Johnson Signed By: <Electronically signed by Jeff Johnson in OV> 07/02/23 0245 DD/ 4 TD/TT: Cut Out Stitcher: [address] [address] [address] Scan Report Signed Patient: Willie Hinds MR#: [id number] [birth year] : 1945 Acct:[id number] Age/Sex: 77 / F ADM Date: 07/01/23 Loc: HO.ED Attending Dr: Ordering Physician: Marielena Riley MD Date of Service: 07/02/23 Procedure(s): CT abd omen pelvis w IV con Accession Number(s): [id number] cc: Jeff Carias MD; Marielena Riley MD EXAMINATION: CT ABDOMEN AND PELVI S WITH CONTRAST CLINICAL INFORMATION: Pain. 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 Concern for bowel obstruction. COMPARISON: None available. TECHNIQUE: Multidetector volume tric images were obtained from the superior aspect of the liver through the pubic symphysis following administration 85 mL of Omnipaque 350 intravenous contrast. Sagittal and coronal reformatted images were obtained on the technologist's workstation. Oral contrast: No This CT examination was performed using dose optimization techniques as appropriate, various ly including the following: *Automated exposure control *Adjustment of mA an d/or kV according to patient size (this includes techniques or standardized protocols for targeted exams where dose is matched to indication/reason for exam; i.e. extremities or head) *Use of iterative reconstruction technique DLP: 477 mGy-cm FINDINGS: LUNG BASES: There is scarring and/or subsegmental atelectasis at the right lung base. LIVER, GALLBLADDER, AND BILIARY TREE: There are multiple scattered hepatic hypodensitie s measuring up to 2.6 cm left lobe the liver likely multiple cysts. Ther e is no intrahepatic biliary duct dilatation. The gallbladder is unremarkable with no evidence of radiopaque gallstones, gallbladder wall thickening, or obvious pericholecystic inflammatory changes. PANCREAS: Unremarkable. SPLEEN: Unremarkable. ADRENAL GLANDS: Unremarkable. KIDNEYS AND URETERS: The kidneys are normal in size, shape, and attenuation. No hydronephrosis, hydroureter, or calculi seen. No perinephric strandin g. There are a few scattered bilateral subcentimeter hypodensities too small to characterize but likely small cysts. BLADDER: Unremarkable. GASTROINTESTINAL TRA CT: There are distended/dilated mid to distal small bowel loops containi ng fluid and some stool-like material distally extending to the lev el of a thickened terminal small bowel within the pelvis. The appendix is not identified. ABDOMINAL WALL: No significant hernia is appreciated. LYMPH NODES: Normal. VASCULAR: Unremarkable. PELVIC VISCERA: Pelv ic organs are unremarkable. There is a small amount of free fluid within the pelvis. OSSEOUS STRUCTURES: There is diffuse thoracolumbar disc degenerative change. C T/CT abdomen pelvis w IV con IMPRESSION: 1. Findings consiste nt with partial distal small bowel obstruction with transition poin t in the pelvis. There is a thickened terminal small bowel loop wit hin the pelvis likely secondary to patient's known Crohn's disease.. 2. Multiple hepatic hypodensities likely cysts. 3. Small amount of f ree fluid within the pelvis. Fleischner guideline s were followed. Dictated By: Jeff Johnson Signed By: <Electronically signed by Jeff Johnson in OV> 07/02/23 0245 DD/ 0105 TD/TT: Cut Out Stitcher: Complete Blood Count no Diff Reviewed date:07/09/2023 01:52:42 PM Interpretation: Performing Lab:[facility], [address] [place] [phone] Notes/Report: White Blood Count 6.1 4.8-10.8 X10*3/uL Red Blood Count 3.79 4.20-5.50 X10*6/uL Hemoglobin 10.6 12.0-16.0 g/dl Hematocrit 33.0 37.0-47.0 % Mean Corpuscular Volume 87.1 80.0-98.0 fL Mean Corpuscular Hemoglobin 28.0 27.0-33.0 pg Mean Corpuscular HGB Conc 32.1 31.0-35.0 g/dl Red Cell Distribution Width 14.2 11.0-16.0 % Platelet Count 269 160-400 X10*3/uL Mean Platelet Volume 9.3 9.4-12.3 fL NRBC Pct Auto 0.0 0.0-0.2 /100WBC NRBC Abs Auto 0.000 0.0-0.012 X10*3/uL Basic Metabolic Panel Reviewed date:07/09/2023 01:52:42 PM Interpretation: Performing Lab:[facility], [address] [place] [phone] Notes/Report: Sodium 139 135-145 mmol/L Potassium 4.1 3.3-5.1 mmol/L Slight Hemoly sis Chloride 106 96-108 mmol/L Carbon Dioxide 25 22-29 mmol/L Anion Gap 12 12-20 Blood Urea Nitrogen 20 9-16 mg/dL Creatinine 0.82 0.5-1.4 mg/dL Creatinine Clr Calc Pharmacy 53.6 Provided height and weight: 157.48 cm, 68 kg. eGFR (calculated from the MDRD study equation) and eCrCl (calculated from the Cockcroft-Gault equation) are based on different parameters and may not yield comparable results. If eCrCl result is absurd, please check patient's height/weight. Estimated Glomerular Filt Rate > 60 NOTE: For -Nigerien individuals, multiply the result by 1.210. Chronic Kidney Disease: Estimated GFR < 60 mL/min/1.73m2 Severe Kidney Disease: Estimated GFR < 15 mL/min/1.73m2 Glucose Random 96 60-115 mg/dL Calcium 8.0 8.4-10.2 mg/dL Reason For Referral Reason HX crohns disease re cent bowel obstruction over due for colonscopy Diagnosis 1 Crohns disease (K50. 90) Referral Organization Jeff Carias III, MD Referring Provider First Name Jeff Referring Provider Last Name Carias Referring Provider Speciality Internal M edicine Referred Provider Jeff Avila Referred Provider Specialty Gastroentero logy General Notes Codi Newton RAJAT 07/05 11:42:54 AM EDT > ref/demo/progress notes/labs x rays faxed to Dr Avila office called spoke to Jessica [phone] made pt appt for 12/07/2023 at 11:00am info mailed to patient Referral Priority Routine Referral Appointment Date 12/07/2023 Medications Medication SIG (Take, Route, Frequency, Duration) Notes Start Date End Date Status Cyclobenzaprine HCl 10 MG 1 tablet Orall y three times a day 12/29/2023 Active Vitamin D 2000 UNIT as directed Orally Active Multivitamins Orally Active Fish Oil 1200 MG 2 capsules Orally On ce a day Active Immunizations Vaccine Route Administration Date Status Comme nts COVID- 19 Vaccine Unknown 06/04/2020 Administered COVID- 19 Vaccine Unknown 05/27/2021 Administered COVID- 19 Vaccine Unknown 07/02/2020 Administered moder na SHINGRIX Unknown 08/31/2021 Administered SHINGRIX Unknown 11/01/2021 Administered Social History Tobacco Use: Social History Observation Description Date Details (start date - stop date) Never Smoker NA - NA Sex Assigned At : Social History Observation Description Sex Assigned At Female Alcohol Screen Question Answer Notes Did you have a drink containing alcohol in the p ast year? No Points 0 Interpretation Negative Tobacco Control (Standard) Question Answer Notes Tobacco use: Nonsmoker Problems Problem Type SNOMED Code ICD Code Onset Dates Problem Status W/U Status Risk Notes Problem 39509286 Hyperlipidemia (E78.5) Active confirmed Comprehensive b lood work with a ffasting lipid profile has been ordered prior to her next visit. No change in her regimen was made today. Problem 96878468 Hypothyroidism (E03.9) Active confirmed Her thyroid function tests have been in the normal range with the TSH 4.35. No change in her regimen was made. She will continue on her current dose. Problem Diplopia (19228028) Diplopia (H53.2) Active confirmed She has had no further diplopia and this problem has resolved Problem 443016152 Osteopenia (M85.80) Active confirmed She has had no apparent fractures. She will continue on her current calcium tablets. Problem 683684134 Over weight (E66.3) Active confirmed Her weight is stable at 159 pounds and a body mass index 27. I recommend a gradual slow and steady weight loss of 1/2 pound per week through a diet restricted in calories. Problem 562798629 Hypertriglycerid arac[place] (E78.1) Active confirmed Her triglycerid es are elevated. He says she is avoiding dietary sources of triglycerides and red meat. She will educate herself the dietary sources of lipids. I recommended that she is is 10 pounds over the next 6 months and have these values repeated in another office visit. She treated herself. Problem 11884626 Eczema (L30.9) Active confirmed Examination of the skin showed very little eczema today. This problem is inactive. Problem 27306833 Vitamin D deficiency (E55.9) Active confirmed Continued on her vitamin D supplement. Problem 80260529 Crohns disease (K50.90) Active confirmed Her inflammator y bowel diseases tolerable unstable. 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 Problem 472643225 Menopausal state (N95.1) Active confirmed She has not experienced any vaginal bleeding. Problem 748131295 Small bowel obstruction (K56.609) Active confirmed This resolved o karin 24 hours a month ago. I strongly recommend that she have a colonoscopy as she is due and there was thickening of the small bowel terminal portion. She has declined saying she was not considered until next September. 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 K50.90 ; Menopausal state N95.1 ; Eczema L30.9 ; Hyperlipidemia E78.5 ; Hypothyroidism E03.9 and Over weight E66.3 Jeff Carias III, MD [address] [place] [address] [place] [address] 07/27/2023 Jeff Carias Diplopia H53.2 ; [employer] Production Manager hns disease K50.90 ; Eczema L30.9 ; Hyperlipidemia E78.5 ; Hypothyroidism E03.9 ; Small bowel obstruction K56.609 ; Over weight E66.3 and Osteopenia M85.80 Jeff Carias III, MD [address] [place] [address] [place] [address] 12/29/2023 Jeff Carias Diplopia H53.2 ; Hypothyroidism E03.9 ; Cervical radiculopathy M54.12 ; Osteopenia M85.80 ; Hyperlipidemia E78.5 and Over weight E66.3 Jeff Carias III, MD [address] [place] [address] [place] [address] 01/29/2024 Jeff Carias Diplopia H53.2 ; Hypothyroidism E03.9 ; Hyperlipidemia E78.5 ; Vitamin D deficiency E55.9 ; Over weight E66.3 ; Osteopenia M85.80 and Crohns disease K50.90 Jeff Carias III, MD [address] [place] [address] [place] [address] 06/05/2023 Jeff Carias III, MD [address] [place] [address] [place] [address] 06/12/2023 Jeff Carias Tick bite W57.XXXA Jeff Carias III, MD [address] [place] [address] [place] [address] 06/22/2023 Jeff Carias Assessments Encounter Date Diagnosis (ICD Code) Assessment [...] call me at once. 06/05/2023 Crohns disease (ICD-10 - K50.90) Her inflammatory bowel diseases tolerable unstable. 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 07/27/2023 Diplopia (ICD-10 - H53.2) She has had no further diplopia and this problem has resolved 07/27/2023 Crohns disease (ICD-10 - K50.90) Her inflammatory bowel diseases tolerable unstable. 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 12/29/2023 Hypothyroidism (ICD-10 - E03.9) Her thyroid function tests have been in the normal range with the TSH 4.35. No change in her regimen was made. She will continue on her current dose. 12/29/2023 Diplopia (ICD-10 - H53.2) She has had no further diplopia and this problem has resolved 01/29/2024 Hypothyroidism (ICD-10 - E03.9) Her thyroid function tests have been in the normal range with the TSH 4.35. No change in her regimen was made. She will continue on her current dose. 01/29/2024 Diplopia (ICD-10 - H53.2) She has had no further diplopia and this problem has resolved 06/05/2023 Menopausal state (ICD-10 - N95.1) She has not experienced any vaginal bleeding. 07/27/2023 Eczema (ICD-10 - L30.9) Examination of the skin showed very little eczema today. This problem is inactive. 12/29/2023 Cervical radiculopathy (ICD-10 - M54.12) The pain is reproduced by rotation and flexion of the neck to the right. She will use a heating pad and Tylenol and ibuprofen. She will refrain from heavy lifting. Follow-up was arranged. A muscle relaxant, cyclobenzaprine, was prescribed. Imaging will be done if this does not improve. 01/29/2024 Hyperlipidemia (ICD-10 - E78.5) Comprehensive blood work with a ffasting lipid profile has been ordered prior to her next visit. No change in her regimen was made today. 06/12/2023 Tick bite (ICD-10 - W57.XXXA) 06/05/2023 Eczema (ICD-10 - L30.9) Examination of the skin showed very little eczema today. This problem is inactive. 07/27/2023 Hyperlipidemia (ICD-10 - E78.5) Her lipids have improved since the last determination. Her total cholesterol is slightly out of range. Her triglycerides have improved but are still elevated. We reviewed diet today. 12/29/2023 Osteopenia (ICD-10 - M85.80) She has had no apparent fractures. She will continue on her current calcium tablets. 01/29/2024 Vitamin D deficiency (ICD-10 - E55.9) Continued on her vitamin D supplement. 06/05/2023 Hyperlipidemia (ICD-10 - E78.5) Her lipids have [...] will continue on her current dose. 12/29/2023 Hyperlipidemia (ICD-10 - E78.5) Her lipids have improved since the last determination. Her total cholesterol is slightly out of range. Her triglycerides have improved but are still elevated. We reviewed diet today. 01/29/2024 Over weight (ICD-10 - E66.3) Her weight is stable at 159 pounds and a body mass index 27. I recommend a gradual slow and steady weight loss of 1/2 pound per week through a diet restricted in calories. 06/05/2023 Hypothyroidism (ICD-10 - E03.9) Her thyroid function [...] she was not considered until next September. 12/29/2023 Over weight (ICD-10 - E66.3) Her weight is stable at 148 pounds and a body mass index 27. I recommend a gradual slow and steady weight loss of 1/2 pound per week through a diet restricted in calories. 01/29/2024 Osteopenia (ICD-10 - M85.80) She has had no apparent fractures. She will continue on her current calcium tablets. 06/05/2023 Over weight (ICD-10 - E66.3) Her weight is stable at 148 pounds and a body mass index 27. I recommend a gradual slow and steady weight loss of 1/2 pound per week through a diet restricted in calories. 07/27/2023 Over weight (ICD-10 - E66.3) Her weight is stable at 148 pounds and a body mass index 27. I recommend a gradual slow and steady weight loss of 1/2 pound per week through a diet restricted in calories. 01/29/2024 Crohns disease (ICD-10 - K50.90) Her inflammatory bowel diseases tolerable unstable. 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 07/27/2023 Osteopenia (ICD-10 - M85.80) She has had no apparent fractures. She will continue on her current calcium tablets. Plan Of Treatment Pending Test Test Name Order Date URINE DIP STICK 05/11/2020 PROFILE, FASTING (COMPREHENSIVE METABOLI C) 06/18/2019 PROFILE, FASTING (COMPREHENSIVE METABOLI C) 05/08/2018 PROFILE, FASTING (COMPREHENSIVE METABOLI C) 01/29/2024 PROFILE, FASTING (COMPREHENSIVE METABOLI C) 05/24/2021 PROFILE, FASTING (COMPREHENSIVE METABOLI C) 05/11/2020 PROFILE, FASTING (COMPREHENSIVE METABOLI C) 04/27/2017 PROFILE, FASTING (COMPREHENSIVE METABOLI C) 05/10/2019 PROFILE, RANDOM (COMPREHENSIVE METABOLIC ) 04/21/2016 LIPID PANEL 05/10/2019 LIPID PANEL 04/21/2016 LIPID PANEL 06/18/2019 LIPID PANEL 05/08/2018 LIPID PANEL 05/24/2021 LIPID PANEL 05/11/2020 LIPID PANEL 04/27/2017 FREE T4 (FT4) 05/11/2020 FREE T4 (FT4) 06/18/2019 TSH (THYROID STIMULATING HORMONE) 2020 TSH (THYROID STIMULATING HORMONE) 2019 CBC w DIFF 06/18/2019 CBC w DIFF 04/27/2017 CBC w DIFF 05/10/2019 CBC w DIFF 05/11/2020 CBC w DIFF 04/21/2016 CBC w DIFF 05/08/2018 CBC w DIFF 05/24/2021 MRI BRAIN W&WO CONTRAST 01/31/2023 VITAMIN D 25-OH TOTAL 05/24/2021 CBC WITH AUTO DIFF 01/29/2024 Lipid Panel 01/29/2024 Vitamin D 25-OH Total 01/29/2024 Next Appt Details Provider Name:Jeff Carias, 06/05/2024 09:30:00 AM, [address] [place] [address] DR, [place] [address], [place], [address], Insurance Providers Payer Name Payer Address Payer Phone Subscriber Number Group Number Insured Name Patient Relationship to Insured Coverage Start Date Coverage End Date [facility] [address] [place] Aguilar [phone] [id number] Oriana Hinds Self - patient is the insured Medical (General) History Medical History History ICD Code menopause Crohn's disease eczema hyperlipidemia hypothyroidism osteopenia Labyrinthitis July 2019 History of labyrinthitis Surgical History Surgery Date(Month/Year) T&A partial ileocolectomy tubal ligation colonoscopy 2008 dental extractions 07/2022 No history Hospitalization History Reason Date(Month/Year) No history
== END 2024-05-23 09:20 | disposition home or self-care (01) ==
LOC: HO.MAMMO 09:19
PROVIDERS: PCP Internal Medicine Medical Oncology; Visit Provider Internal Medicine Medical Oncology
DX: Z12.31 Encounter for screening mammogram for malignant neoplasm of breast (principal)
CPT/HCPCS: 77063; 77067

== ENCOUNTER → 2024-05-23 09:45 | Outpatient (BNV) | payer MEDICARE, SELFPAY | PROVIDERS: PCP Internal Medicine Medical Oncology; Visit Provider Internal Medicine | DX: Z12.31 Encounter for screening mammogram for malignant neoplasm of breast (principal) | CPT/HCPCS: 77063; 77067 ==

== ENCOUNTER 2024-05-27 06:10 | Outpatient (REF) | payer MEDICARE, SELFPAY ==
[2024-05-27 06:38] LABS: MANUAL DIFF FLAG NO
[2024-05-27 07:28] LABS: Basophils Percent Auto 0.7 % (0-2); Eosinophils Absolute Auto 0.1 X10*3/uL (0.0-0.4); Eosinophils Percent Auto 1.2 % (0-4); Hematocrit 39.6 % (37.0-47.0); Hemoglobin 12.6 g/dl (12.0-16.0); Imm Gran Abs Auto 0.01 X10*3/uL (0.00-0.03); Imm Gran Pct Auto 0.2 % (0.0-0.4); Lymphocytes Percent Auto 34.3 % (20-40); Mean Corpuscular HGB Conc 31.8 g/dl (31.0-35.0); Mean Corpuscular Hemoglobin 27.7 pg (27.0-33.0); Mean Platelet Volume 8.8 fL (9.4-12.3); Monocytes Absolute Auto 0.4 X10*3/uL (0.1-1.2); Monocytes Percent Auto 7.4 % (2-11); Neutrophils Absolute Auto 3.4 x10*3/uL (2.0-8.3); Neutrophils Percent Auto 56.2 % (45-73); Platelet Count 347 X10*3/uL (160-400); Red Blood Count 4.55 X10*6/uL (4.20-5.50); Red Cell Distribution Width 13.5 % (11.0-16.0)
[2024-05-27 08:04] LABS: Alanine Aminotransferase 13 U/L (0-31); Albumin Level 3.9 g/dL (3.5-5.0); Alkaline Phosphatase 80 U/L (39-117); Anion Gap 13 (12-20); Aspartate Amino Transferase 19 U/L (5-31); Bilirubin Total 0.5 mg/dL (0.0-1.0); Blood Urea Nitrogen 9 mg/dL (9-16); Calcium 9.1 mg/dL (8.4-10.2); Carbon Dioxide 27 mmol/L (22-29); Chloride 109 mmol/L (96-108); Cholesterol 191 mg/dL (<200); Estimated Glomerular Filt Rate > 60; Glucose Fasting 91 mg/dL (60-99); HDL Cholesterol 70 mg/dL (>40); LDL Cholesterol Calculated 71 mg/dL (<100); Potassium 4.5 mmol/L (3.3-5.1); Sodium 144 mmol/L (135-145); Total Protein 7.3 g/dL (6.5-8.0); Triglycerides 253 mg/dL (<150)
[2024-05-27 08:20] LABS: Vitamin D 25-OH Total 34.7 ng/mL (>30)
== END 2024-05-27 06:11 | disposition home or self-care (01) ==
LOC: HO.LAB 06:10
PROVIDERS: PCP Internal Medicine Medical Oncology; Visit Provider Internal Medicine Medical Oncology
DX: H53.2 Diplopia (principal); E55.9 Vitamin D deficiency, unspecified; E78.5 Hyperlipidemia, unspecified
CPT/HCPCS: 36415; 80053; 80061; 82306; 85025

== ENCOUNTER 2024-12-04 06:23 | Day surgery (SDC) | payer MEDICARE, SELFPAY ==
--- OUTSIDE RECORDS SUMMARY | 2023-07-27 06:00 | XMS_ITS ---
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 90) Referral Organization Jeff Carias III, MD Referring Provider First Name Jeff Referring Provider Last Name Aretha Referring Provider Speciality Internal M edicine Referred Provider Jeff Avila Referred Provider Specialty Gastroentero logy General Notes Codi Newton CMA 07/05 11:42:54 AM EDT > ref/demo/progress notes/labs x rays faxed to Dr Avila office called spoke to Jessica [phone] made pt appt for 12/07/2023 at 11:00am info mailed to patient Referral Priority Routine Referral Appointment Date 12/07/2023 REASON FOR VISIT Transient small bowel obstruction, Crohn's disease, Hypothyroidism, Hyperlipidemia, Osteopenia Medications Medication SIG (Take, Route, Fr equency, Duration) Notes Start Date End Date Status Fish Oil 1200 MG 2 capsules Orally Once a day Active Multivitamins Orally Active Vitamin D 2000 UNIT as directed Orally Active Social History Tobacco Use: Social History Observation Description Date Details (start date - stop date) Never Smoker NA - NA Sex Assigned At : Social History Observation Description Sex Assigned At Female Tobacco Use/Smoking Question Answer Notes Patient is a nonsmoker Additional Findings: Tobacco Non-User Aggressive non-smoker Problems Problem Type SNOMED Code ICD Code Onset Dates Problem Status W/U Status Risk Notes Problem 152080665 Small bowel obstruction (K56.609) Active confirmed This resolved over 24 hours a month ago. I strongly recommend that she have a colonoscopy as she is due and there was thickening of the small bowel terminal portion. She has declined saying she was not considered until next September. 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 She remains under the care of Dr. Steiner, her pipe roller Her last colonoscopy was in 2011 and was unremarkable except for the Crohn's disease. 07/27/2023 Eczema (ICD-10 - L30.9) Examination of the skin showed very little eczema today. This problem is inactive. 07/27/2023 Hyperlipidemia (ICD-10 - E78.5) Her lipids have improved since the last determination. Her total cholesterol is slightly out of range. Her triglycerides have improved but are still elevated. We reviewed diet today. 07/27/2023 Hypothyroidism (ICD-10 - E03.9) Her thyroid function tests have been in the normal range with the TSH 4.35. No change in her regimen was made. She will continue on her current dose. 07/27/2023 Small bowel obstruction (ICD-10 - K56.609) This resolved over 24 hours a month ago. I strongly recommend that she have a colonoscopy as she is due and there was thickening of the small bowel terminal portion. She has declined saying she was not considered until next September. 07/27/2023 Over weight (ICD-10 - E66.3) Her weight is stable at 148 pounds and a body mass index 27. I recommend a gradual slow and steady weight loss of 1/2 pound per week through a diet restricted in calories. 07/27/2023 Osteopenia (ICD-10 - M85.80) She has had no apparent fractures. She will continue on her current calcium tablets. Plan Of Treatment Medication Medication Name Sig Start Date Stop Date Notes Fish Oil 1200 MG 2 capsules Orally Once a day Multivitamins Orally Vitamin D 2000 UNIT as directed Orally Referrals Referral Date Details 07/27/2023 07/27/2023, HX crohn s disease recent bowel obstruction over due for colonscopy, Jeff Avila Next Appt Details Follow Up: 4 Weeks, Reason: ov no tests Provider Name:Jeff Carias, 12/11/2024 10:30:00 AM, [address] [place] [address] [address], [place], [address], Provider Name:Jeff Carias, 06/06/2025 09:30:00 AM, [address] [place] [address] [address], [place], [address], Progress Notes * Oriana HINDS ADOB: 8 (77 yo F)Acc No.[id number]:07/27/2023 Patient: Rosemary Oriana heart Provider: Wilton Carias MD :1945 A ge:77 Y S ex:Female Date:07/27/2023 Address:[address] [place] [id number] Subjective: * Chief Complaints: * T ransient small bowel obstructionCrohn's diseaseHypothyroidismHyperlipidemiaOsteopenia * HPI: C OVID-19 Screening: Questions H ave you experienced fever, chills, cough, sore throat, shortness of breath, difficulty breathing, muscle aches, loss of taste or smell? N o H ave you been exposed to the virus within the last 10 days? N o H ave you travelled internationally in the last 10 days? N o H ave you been exposed to COVID-19 in the past? N o She returns for management [facility] This resolved spontaneously. It has not returned. She is due for a colonoscopy but declined to have a scheduled because her needs a heart valve replacement. She wants to wait for a gastroenterology referral until September 2023. CT scan done at the hospital showed thickening of the terminal small bowel with multiple air and fluid filled bowel loops. * ROS: G eneral/Constitutional: pain o nly normal aches and pains. C hills d enies.?Fatigue a dmits. F ever d enies. E NT: Decreased hearing m ild. R espiratory: Cough d enies. C ardiovascular: Chest pain with exertion d enies. D yspnea on exertion?denies. S hortness of breath d enies. G astrointestinal: Constipation d enies. D ecreased appetite d enies.?Diarrhea t hat is infrequent. H eartburn d enies. N ausea d enies. R ectal bleeding d enies. V omiting d enies. H ematology: bruising d enies. p etechiae d enies. S wollen glands n one have been noted. G enitourinary: Frequent urination a t night. M usculoskeletal: Muscle aches d enies. P ainful joints d enies. S ciatica d enies. W eakness d enies. S kin: Itching d enies. R meseret d enies. S kin lesion(s)?denies. N eurologic: Difficulty speaking d enies. D izziness d enies.?Headache d enies. L ow back pain d enies. P sychiatric: Depressed mood d enies. * Medical History: * Surgical History: T &A partial ileocolectomy tubal ligation colonoscopy 2007Teeth pulled 07/2022 * Hospitalization/Major Diagno stic Procedure: D enies Past Hospitalization * Family History: F ather: , colon cancer, diagnosed with Cancer. M other: alive, hypertension,hypothyroidism, gout, cataracts, diagnosed with HTN. C belgica: alive. S on(s): alive. D dalier(s): alive. S will: alive, Pre Diabetic. 3 brother(s) , 1 sister(s) . 2 daughter(s) - healthy. . Her brother had prostate cancer. Her sister had ovarian cancer. * Social History: T obacco Use: T obacco Use/Smoking P atient is a n onsmoker A dditional Findings: Tobacco Non-User A ggressive non-smoker S he is and has 2 children. 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 She lives in [place], [place]. * Medications: T akingFish Oil 1200 MG Capsule 2 capsules Orally Once a dayVitamin D 2000 UNIT Tablet as directed Orally Multivitamins Tablet Chewable Orally Medication List reviewed and reconciled with the patientTaking Fish Oil 1200 MG Capsule 2 capsules Orally Once a dayTaking Vitamin D 2000 UNIT Tablet as directed Orally Taking Multivitamins Tablet Chewable Orally Medication List reviewed and reconciled with the patient * Allergies: N o Known Drug Allergyno[Allergies Verified] Objective: * Vitals: H t: 63, Wt:150, BMI:26.57, BP:131/68, HR:75, Temp:99.3, Ht-cm: 160.02, Wt-k.04. * P ast Orders: Imaging:MM tomosynthesis scr eening BI * Order Date 05/22/2023 06/15/2021 ???Imaging:CT abdomen pelvis w con (Order Date - 07/02/2023) (Collection Date - 07/02/2023) * Lab:Lipid Panel * Order Date 05/25/2023 05/23/2022 05/01/2020 Triglycerides 187 H (Ref Range: <150 mg/dL) 286 (Ref Range: mg/dL) 355 (Ref Range: mg/dL) Cholesterol 199 (Ref Range: <200 mg/dL) 217 (Ref Range: mg/dL) 227 (Ref Range: mg/dL) LDL Cholesterol Calculated 88 (Ref Range: <100 mg/dL) 93 (Ref Range: mg/dl) 86 (Ref Range: mg/dl) HDL Cholesterol 74 (Ref Range: >40 mg/dL) 67 (Ref Range: mg/dL) 70 (Ref Range: mg/dL) * Lab:Comprehensive [place]. Gioe l Fast * Order Date 05/25/2023 05/23/2022 Sodium 143 (Ref Range: 135-145 mmol/L) 143 (Ref Range: 135-145 mmol/L) Bilirubin Total 0.5 (Ref Range: 0.0-1.0 mg/dL) 0.8 (Ref Range: 0.0-1.0 mg/dL) Aspartate Amino Transferase 15 (Ref Range: 5-31 U/L) 17 (Ref Range: 5-31 U/L) Alanine Aminotransferase 14 (Ref Range: 0-31 U/L) 13 (Ref Range: 0-31 U/L) Total Protein 6.6 (Ref Range: 6.5-8.0 g/dL) 6.5 (Ref Range: 6.5-8.0 g/dL) Albumin Level 3.7 (Ref Range: 3.5-5.0 g/dL) 4.0 (Ref Range: 3.5-5.0 g/dL) Alkaline Phosphatase 76 (Ref Range: 39-117 U/L) 81 (Ref Range: 39-117 U/L) Potassium 4.0 (Ref Range: 3.3-5.1 mmol/L) 3.9 (Ref Range: 3.3-5.1 mmol/L) Chloride 107 (Ref Range: 96-108 mmol/L) 105 (Ref Range: 96-108 mmol/L) Carbon Dioxide 27 (Ref Range: 22-29 mmol/L) 27 (Ref Range: 22-29 mmol/L) Anion Gap 13 (Ref Range: 12-20) 15 (Ref Range: 12-20) Blood Urea Nitrogen 12 (Ref Range: 9-16 mg/dL) 11 (Ref Range: 9-16 mg/dL) Creatinine 0.76 (Ref Range: 0.5-1.4 mg/dL) 0.87 (Ref Range: 0.5-1.4 mg/dL) Estimated Glomerular Filt Rate > 60 > 60 Glucose Fasting 86 (Ref Range: 60-99 mg/dL) 87 (Ref Range: 60-99 mg/dL) Calcium 8.9 (Ref Range: 8.4-10.2 mg/dL) 9.0 (Ref Range: 8.4-10.2 mg/dL) * Lab:Complete Blood Count Aut o Diff * Order Date 07/02/2023 05/25/2023 05/23/2022 White Blood Count 4.4 L (Ref Range: 4.8-10.8 X10*3/uL) 6.7 (Ref Range: 4.8-10.8 X10*3/uL) 6.6 (Ref Range: 4.8-10.8 X10*3/uL) Red Blood Count 4.59 (Ref Range: 4.20-5.50 X10*6/uL) 4.24 (Ref Range: 4.20-5.50 X10*6/uL) 4.59 (Ref Range: 4.20-5.50 X10*6/uL) Hemoglobin 12.9 (Ref Range: 12.0-16.0 g/dl) 12.1 (Ref Range: 12.0-16.0 g/dl) 13.8 (Ref Range: 12.0-16.0 g/dl) Hematocrit 38.3 (Ref Range: 37.0-47.0 %) 37.1 (Ref Range: 37.0-47.0 %) 42.1 (Ref Range: 37.0-47.0 %) Mean Corpuscular Volume 83.4 (Ref Range: 80.0-98.0 fL) 87.5 (Ref Range: 80.0-98.0 fL) 91.7 (Ref Range: 80.0-98.0 fL) Mean Corpuscular Hemoglobin 28.1 (Ref Range: 27.0-33.0 pg) 28.5 (Ref Range: 27.0-33.0 pg) 30.1 (Ref Range: 27.0-33.0 pg) Mean Corpuscular HGB Conc 33.7 (Ref Range: 31.0-35.0 g/dl) 32.6 (Ref Range: 31.0-35.0 g/dl) 32.8 (Ref Range: 31.0-35.0 g/dl) Red Cell Distribution Width 13.7 (Ref Range: 11.0-16.0 %) 13.0 (Ref Range: 11.0-16.0 %) 12.6 (Ref Range: 11.0-16.0 %) Platelet Count 312 (Ref Range: 160-400 X10*3/uL) 331 (Ref Range: 160-400 X10*3/uL) 324 (Ref Range: 160-400 X10*3/uL) Mean Platelet Volume 9.1 L (Ref Range: 9.4-12.3 fL) 8.9 L (Ref Range: 9.4-12.3 fL) 9.4 (Ref Range: 9.4-12.3 fL) Neutrophils Percent Auto 80.9 H (Ref Range: 45-73 %) 47.5 (Ref Range: 45-73 %) 52.6 (Ref Range: 45-73 %) Imm Gran Pct Auto 0.2 (Ref Range: 0.0-0.4 %) 0.3 (Ref Range: 0.0-0.4 %) 0.2 (Ref Range: 0.0-0.4 %) Lymphocytes Percent Auto 8.2 L (Ref Range: 20-40 %) 43.4 H (Ref Range: 20-40 %) 39.2 (Ref Range: 20-40 %) Monocytes Percent Auto 10.2 (Ref Range: 2-11 %) 7.0 (Ref Range: 2-11 %) 6.3 (Ref Range: 2-11 %) Eosinophils Percent Auto 0.0 (Ref Range: 0-4 %) 0.9 (Ref Range: 0-4 %) 0.9 (Ref Range: 0-4 %) Basophils Percent Auto 0.5 (Ref Range: 0-2 %) 0.9 (Ref Range: 0-2 %) 0.8 (Ref Range: 0-2 %) NRBC Pct Auto 0.0 (Ref Range: 0.0-0.2 /100WBC) 0.0 (Ref Range: 0.0-0.2 /100WBC) 0.0 (Ref Range: 0.0-0.2 /100WBC) Neutrophils Absolute Auto 3.6 (Ref Range: 2.0-8.3 x10*3/uL) 3.2 (Ref Range: 2.0-8.3 x10*3/uL) 3.5 (Ref Range: 2.0-8.3 x10*3/uL) Imm Gran Abs Auto 0.01 (Ref Range: 0.00-0.03 X10*3/uL) 0.02 (Ref Range: 0.00-0.03 X10*3/uL) 0.01 (Ref Range: 0.00-0.03 X10*3/uL) Lymphocytes Absolute Auto 0.4 L (Ref Range: 1.2-4.9 X10*3/uL) 2.9 (Ref Range: 1.2-4.9 X10*3/uL) 2.6 (Ref Range: 1.2-4.9 X10*3/uL) Monocytes Absolute Auto 0.5 (Ref Range: 0.1-1.2 X10*3/uL) 0.5 (Ref Range: 0.1-1.2 X10*3/uL) 0.4 (Ref Range: 0.1-1.2 X10*3/uL) Eosinophils Absolute Auto 0.0 (Ref Range: 0.0-0.4 X10*3/uL) 0.1 (Ref Range: 0.0-0.4 X10*3/uL) 0.1 (Ref Range: 0.0-0.4 X10*3/uL) Basophils Absolute Auto 0.0 (Ref Range: 0.0-0.2 X10*3/uL) 0.1 (Ref Range: 0.0-0.2 X10*3/uL) 0.1 (Ref Range: 0.0-0.2 X10*3/uL) NRBC Abs Auto 0.000 (Ref Range: 0.0-0.012 X10*3/uL) 0.000 (Ref Range: 0.0-0.012 X10*3/uL) 0.000 (Ref Range: 0.0-0.012 X10*3/uL) * Lab:Thyroid Stimulating Horm one * Order Date 05/25/2023 05/01/2020 Thyroid Stimulating Hormone 4.35 H (Ref Range: 0.32-4.0 uIU/mL) 4.17 H (Ref Range: 0.32-4.0 uIU/mL) * Lab:URINE DIP STICK * Order Date 06/05/2023 05/31/2022 05/24/2021 SG 1.010 (Ref Range: 1.005 - 1.025) 1.010 (Ref Range: 1.005 - 1.025) 1.015 pH 5.0 (Ref Range: 5.0 - 9.0) 5.0 (Ref Range: 5.0 - 9.0) 5 MAIA 70 (Ref Range: Negative -) neg (Ref Range: Negative -) neg NIT Negative (Ref Range: Negative -) neg (Ref Range: Negative -) neg PRO 15 (Ref Range: Negative - Trace) neg (Ref Range: Negative - Trace) trace GLU Negative (Ref Range: Negative -) normal (Ref Range: Negative -) normal KET Negative (Ref Range: Negative -) neg (Ref Range: Negative -) neg UBG 0.2 (Ref Range: 0.1 - 1.8) 0.2 (Ref Range: 0.1 - 1.8) normal DARBY Negative (Ref Range: 0.2 - 1.3) neg (Ref Range: 0.2 - 1.3) neg BLD Negative (Ref Range: Negative -) neg (Ref Range: Negative -) neg Menstrating No no no ???Lab:Lyme IgG/IgM w/reflex to WB (Order Date - 06/13/2023) (Collection Date - 06/13/2023)?ValueReference Range?Lyme IgG/IgM<0.90- index ?Lyme BlotTNP- ???Lab:UA CC w/rflx Micro + Cult (Order Date - 07/02/2023) (Collection Date - 07/02/2023)?ValueReference Range?Color UrineYellow- ?Appearance UrineClear-?PH5.55.0-9.0 -?Glucose Urine UA NegativeNegative - mg/dL?Urine BloodNegativeNegative -?Specific [place] - Urine>= 1.030H1.005-1.025 -?Urine ProteinTraceNeg-Trace - mg/dL ?Urine KetonesTraceNegative - mg/dL?Nitrite UrineNegativeNegative -?Leukocyte Esterase UrineNegativeNegative - ???Lab:Comprehensive Met. Panel (Order Date - 07/02/2023) (Collection Date - 07/02/2023)?ValueReference Range?Brnawl496640-591 - mmol/L ?Bilirubin Total0.80.0-1.0 - mg/dL?Aspartate Amino Uxxhlbfukbh424- 31 - U/L?Alanine Ezvnyqrdrnvsfyxm469-89 - U/L?Total Protein6.4L 6.5-8.0 - g/dL?Albumin Level3.63.5-5.0 - g/dL?Alkaline Phosphatase 6539-117 - U/L?Potassium4.43.3-5.1 - mmol/L?Onlspuhy92746-624 - mmol/L?Carbon Gicsrbm4225-43 - mmol/L?Anion Cgn5618-23 - ?Blood Urea Oabzfbvl14U3-44 - mg/dL?Creatinine0.900.5-1.4 - mg/dL ?Estimated Glomerular Filt Rate> 60-?Glucose Yiwxhc959Q50-363 - mg/dL?Calcium8.68.4-10.2 - mg/dL?Creatinine Clr Calc Toqvngwx45.8- ???Lab:Basic Metabolic Panel (Order Date - 07/03/2023) (Collection Date - 07/03/2023)?ValueReference Range?Wsqnkz030799-547 - mmol/L ?Blood Urea Nifpdgxg38K6-32 - mg/dL?Creatinine0.820.5-1.4 - mg/dL ?Glucose Znrhvt6703-102 - mg/dL?Calcium8.0L8.4-10.2 - mg/dL ?Potassium4.13.3-5.1 - mmol/L?Lwkpkilh20505-142 - mmol/L ?Carbon Faqbzuh3425-39 - mmol/L?Anion Czp6592-04 - ?Estimated Glomerular Filt Rate> 60-?Creatinine Clr Calc Pharmacy 53.6- ???Lab:Complete Blood Count no Diff (Order Date - 07/03/2023) (Collection Date - 07/03/2023)?ValueReference Range?White Blood Count6.14.8-10.8 - X10*3/uL?Red Blood Count3.79L4.20-5.50 - X10*6/uL?Bnnycxqzsm65.6L 12.0-16.0 - g/dl?Hhyyxhstte45.0L37.0-47.0 - %?Mean Corpuscular Jonxow86.180.0-98.0 - fL?Mean Corpuscular Llgppnoxhd43.027.0-33.0 - pg ?Mean Corpuscular HGB Conc32.131.0-35.0 - g/dl?Red Cell Distribution Width14.211.0-16.0 - %?Platelet Cxowb261581-459 - X10*3/uL ?Mean Platelet Volume9.3L9.4-12.3 - fL?NRBC Pct Auto0.00.0-0.2 - /100WBC?NRBC Abs Auto0.0000.0-0.012 - X10*3/uL * Examination: G eneral Examination: GENERAL APPEARANCE: p leasant, well nourished, well developed, in no acute distress, calm and relaxed. HEAD: a traumatic, normocephalic. EYES: e asher, perrla, anicteric, conjugate. EARS: n ormal. NOSE: s eptum intact. ORAL CAVITY: n ormal, unremarkable. NECK/THYROID: n o jugular venous distention, no carotid bruit, thyroid normal. LYMPH NODES: n o enlarged lymph nodes,spleen normal. SKIN: n o suspicious lesions, anicteric. HEART: n o clicks, gallops, murmurs, or rubs, regular rhythm, S1, S2 normal, no s3, or vascular bruits. LUNGS: c lear to auscultation . BREASTS: no masses palpable bilaterally. ABDOMEN: b owel sounds normal, no ascites, no organomegaly, no mass. RECTAL EXAM: n ot examined. MUSCULOSKELETAL: e xtremities unremarkable, no clubbing, cyanosis or edema. PERIPHERAL PULSES: n ormal. NEUROLOGIC: a lert and oriented, cranial nerves 2-12 grossly intact, deep tendon reflexes 2+ symmetrical, motor strength normal upper and lower extremities, sensory exam intact. PSYCH: a lert, oriented. Assessment: * Assessment: 1. D iplopia - H53.2 (Primary), She has had no further diplopia and this problem has resolved?2. C rohns disease - K50.90, Her inflammatory bowel diseases tolerable unstable. She remains under the care of Dr. Steiner, her pipe roller Her last colonoscopy was in 2011 and was unremarkable except for the Crohn's disease. 3 . E czema - L30.9, Examination of the skin showed very little eczema today. This problem is inactive. 4 . H yperlipidemia - E78.5, Her lipids have improved since the last determination. Her total cholesterol is slightly out of range. Her triglycerides have improved but are still elevated. We reviewed diet today. 5 . H ypothyroidism - E03.9, Her thyroid function tests have been in the normal range with the TSH 4.35. No change in her regimen was made. She will continue on her current dose. 6 . S mall bowel obstruction - K56.609, This resolved over 24 hours a month ago. I strongly recommend that she have a colonoscopy as she is due and there was thickening of the small bowel terminal portion. She has declined saying she was not considered until next September. 7 . O karin weight - E66.3, Her weight is stable at 148 pounds and a body mass index 27. I recommend a gradual slow and steady weight loss of 1/2 pound per week through a diet restricted in calories. 8 . O steopenia - M85.80, She has had no apparent fractures. She will continue on her current calcium tablets. Plan: * Treatment: 2. C rohns disease Referral To:[facility] Reason:HX crohns disease recent bowel obstruction * Procedure Codes: * Preventive Medicine: Counseling: C are goal follow-up plan: Counseling for abnormal BMI given Y es Above Normal BMI Follow-up D ietary management education, guidance, and counseling, Dietary needs education, Exercise promotion: strength training, Exercise promotion: stretching, Feeding regime, Giving encouragement to exercise, Lifestyle education regarding diet, Nutrition / feeding management, Nutrition therapy, Prescribed activity/exercise education, Prescribed diet education, Prescribed dietary intake, Special diet education, Weight monitoring , Intervention, Order not done: Medical or Other reason not done * Follow Up: 4 Weeks (Reason: ov no tests) * Images: * Sign off status: Completed true * Provider: Wilton Carias MD Date: 0 07/27/2023 Generated for Yudy trejo/Anna/Daniela on: 0 11/07/2024 10:25 AM EDT History and Physical Notes * HPI (History of Present Illness) Category Sub-Category Detail Notes COVID-19 Screening Questions Have you had any new onset fever, chills, cough, congestion, sore throat, shortness of breath, muscle aches?: No Have you been exposed to the virus withi n the last 10 days?: No Have you travelled internationally in e last 10 days?: No Have you been exposed to COVID-19 in the past?: No Examination Category Sub-Category Detail Notes General Examination GENERAL APPEARANCE: pleasant , well nourished, well developed, in no acute distress, calm and relaxed HEAD: atraumatic, normocep halic EYES: eomi, perrla, anicte dayne, conjugate EARS: normal NOSE: septum intact NECK/THYROID: no jugular venous di stention, no carotid bruit, thyroid normal HEART: no clicks, gallops, murmurs, or rubs, regular rhythm, S1, S2 normal, no s3, or vascular bruits LUNGS: clear to auscultatio n ABDOMEN: bowel sounds normal, no ascites, no organomegaly, no mass NEUROLOGIC: alert and oriented, cranial nerves 2-12 grossly intact, deep tendon reflexes 2+ symmetrical, motor strength normal upper and lower extremities, sensory exam intact SKIN: no suspicious lesion s, anicteric PERIPHERAL PULSES: normal BREASTS: no masses palpable b ilaterally MUSCULOSKELETAL: extremities unremark able, no clubbing, cyanosis or edema LYMPH NODES: no enlarged lymph no riddhi,spleen normal RECTAL EXAM: not examined PSYCH: alert, oriented ORAL CAVITY: normal, unremarkable Consultation Request Notes Referral Date Referring Provider Referred Provider Not es 07/27/2023 Jeff Carias Robert HX crohns dis ease recent bowel obstruction over due for colonscopy
--- OUTSIDE RECORDS SUMMARY | 2023-08-24 13:15 | XMS_ITS ---
Author Organization Jeff Carias III, MD Address [address] [place] [address] [address] [place] [address] Care Team Providers Care [employer] Name Role Phone Jeff Carias Primary Care Provider REASON FOR VISIT follow up Social History Sex Assigned At : Social History Observation Description Sex Assigned At Female Encounters Encounter Location Date Provider Diagnosis Jeff Carias III, MD [address] [place] [address] [place] [address] 08/24/2023 Jeff Carias Plan Of Treatment Next Appt Details Provider Name:Jeff Carias, 12/11/2024 10:30:00 AM, [address] [place] [address] [place], [address], Provider Name:Jeff Carias, 06/06/2025 09:30:00 AM, [address] [place] [address] [place], [address], Progress Notes * Oriana HINDS ADOB: 8 (78 yo F)Acc No.[id number]:08/24/2023 Progress Notes Patient: Oriana BAHENA Provider: Wilton Carias MD :1945 A ge:77 Y S ex:Female Date:08/24/2023 Address:[address] [place] [id number] Subjective: * Chief Complaints: * 1 . Follow up. * Medical History: Objective: * Vitals: Assessment: Plan: * Treatment: * Images: * The named appointment provid er may or may not be the originator of this progress note, and it is not deemed complete until electronically signed by the appointment provider. Sign off status: Pending * Provider: Wilton Carias MD Date: 0 08/24/2023 Generated for Yudy trejo/Anna/Daniela on: 0 11/07/2024 10:25 AM EDT
--- OUTSIDE RECORDS SUMMARY | 2023-12-29 05:30 | XMS_ITS ---
Author Organization Jeff Carias III, MD Address [address] [place] [address] Care Team Providers Care National Sales Manager Name Role Phone Jeff Carias Primary Care Provider Allergies Allergen (clinical drug ingredient) Drug/Non Drug Allergy documented on EMR Reaction Allergy Type Onset Date Status No Known Drug Allergy Unknown Drug Allergy Active REASON FOR VISIT Right arm pain, shoulder muscle spasm, nerve impingement neck, Cervical radiculopathy, Hypothyroidism Medications Medication SIG (Take, Route, Frequency, Duration) Notes Start Date End Date Status Cyclobenzaprine HCl 10 MG 1 tablet Orall y three times a day for 14 days 12/29/2023 03/21/2024 Active Multivitamins Orally Active Fish Oil 1200 MG 2 capsules Orally On a day Active Vitamin D 2000 UNIT as directed Orally Active Social History Sex Assigned At : Social History Observation Description Sex Assigned At Female Alcohol Screen Question Answer Notes Did you have a drink containing alcohol in the p ast year? No Points 0 Interpretation Negative Vital Signs Temperature 97.9 degrees Fahrenheit 12/29/19 24 Blood pressure systolic 140 mm Hg 12/29/19 24 Blood pressure diastolic 84 mm Hg 024 Heart Rate 74 /min 12/29/2023 Height 63 in 12/29/2023 Weight 150 lbs 12/29/2023 BMI 26.57 kg/m2 12/29/2023 Encounters Encounter Location Date Provider Diagnosis Jeff Carias III, MD [address] [place] [address] [place] [address] 12/29/2023 Jeff Carias Diplopia H53.2 ; Hypothyroidism E03.9 ; Cervical radiculopathy M54.12 ; Osteopenia M85.80 ; Hyperlipidemia E78.5 and Over weight E66.3 Assessments Encounter Date Diagnosis (ICD Code) Assessment Notes Treat ment Notes Treatment Clinical Notes 12/29/2023 Diplopia (ICD-10 - H53.2) She has had no further diplopia and this problem has resolved 12/29/2023 Hypothyroidism (ICD-10 - E03.9) Her thyroid function tests have been in the normal range with the TSH 4.35. No change in her regimen was made. She will continue on her current dose. 12/29/2023 Cervical radiculopathy (ICD-10 - M54.12) The pain is reproduced by rotation and flexion of the neck to the right. She will use a heating pad and Tylenol and ibuprofen. She will refrain from heavy lifting. Follow-up was arranged. A muscle relaxant, cyclobenzaprine, was prescribed. Imaging will be done if this does not improve. 12/29/2023 Osteopenia (ICD-10 - M85.80) She has had no apparent fractures. She will continue on her current calcium tablets. 12/29/2023 Hyperlipidemia (ICD-10 - E78.5) Her lipids have improved since the last determination. Her total cholesterol is slightly out of range. Her triglycerides have improved but are still elevated. We reviewed diet today. 12/29/2023 Over weight (ICD-10 - E66.3) Her weight is stable at 148 pounds and a body mass index 27. I recommend a gradual slow and steady weight loss of 1/2 pound per week through a diet restricted in calories. Plan Of Treatment Medication Medication Name Sig Start Date Stop Date Notes Cyclobenzaprine HCl 10 MG 1 tablet Orall y three times a day for 14 days 12/29/2023 03/21/2024 Multivitamins Orally Fish Oil 1200 MG 2 capsules Orally Once a day Vitamin D 2000 UNIT as directed Orally Next Appt Details Follow Up: 4 Weeks, Reason: OV Provider Name:Jeff Carias, 12/11/2024 10:30:00 AM, [address] [place] [address] [place], [place], [phone], Provider Name:Jeff Carias, 06/06/2025 09:30:00 AM, [address] [place] [address] [place], [place], [phone], Progress Notes * Oriana HINDS ADOB: [birth year] (78 yo F)Acc No.[id number]:12/29/2023 Progress Notes Patient: Oriana BAHENA Provider: Wilton Carias MD :1945 A ge:78 Y S ex:Female Date:12/29/2023 Address:[address] [place], [place] [id number] Subjective: * Chief Complaints: * R ight arm painShoulder muscle spasmNerve impingement neckCervical radiculopathyHypothyroidism * HPI: C OVID-19 Screening: Questions H [...] to COVID-19 in the past? N o * : The patient, a 78-year-old female, presented with a complaint of right arm pain that has been ongoing for several months. The pain is particularly severe at night, often waking her up, and lasts until the morning. However, during the day, the pain subsides. The patient reported that the pain is located in her arm and is described as tender and painful. The pain does not seem to be associated with any specific triggers, but the patient mentioned that keeping her arm elevated with a pillow sometimes helps alleviate the discomfort. The patient also reported a feeling of stiffness in her neck, which she described as feeling like a pinched nerve. The patient denied any weakness in the arm and reported no other associated signs and symptoms. The patient's vitals were not mentioned in the conversation. * ROS: G eneral/Constitutional: pain N yoselin, right shoulder, right. C hills d enies.?Fatigue a dmits. F ever d enies. E NT: Decreased hearing d enies. E ndocrine: Denies W eakness. R espiratory: Cough d enies. C ardiovascular: Chest pain with exertion d enies. D yspnea on exertion?denies. S hortness of breath d enies. G astrointestinal: Constipation o ccasional. D ecreased appetite d enies. D iarrhea d enies. H eartburn o ccasional. N ausea d enies. R ectal bleeding d enies. V omiting d enies. H ematology: bruising d enies. p etechiae d enies. S wollen glands n one have been noted. G enitourinary: Frequent urination d enies. M usculoskeletal: Muscle aches d enies. P ainful joints N yoselin wwith range of motion, right shoulder down right arm. S ciatica d enies. W eakness d enies.? S kin: Itching d enies. R meseret d enies. S kin lesion(s)?denies. N eurologic: Difficulty speaking d enies. D izziness d enies.?Headache d enies. L ow back pain d enies. P sychiatric: Depressed mood d enies. * Medical History: * Surgical History: T &A partial ileocolectomy tubal ligation colonoscopy 2007dental extractions 07/2022No history * Hospitalization/Major Diagno stic Procedure: N o history * Family History: F ather: , colon cancer, diagnosed with Cancer. M other: alive, hypertension,hypothyroidism, gout, cataracts, diagnosed with HTN. C hildren: alive. S on(s): alive. D aughter(s): alive. S iblings: alive, Pre Diabetic. 3 brother(s) , 1 sister(s) . 2 daughter(s) - healthy. . Her brother had prostate cancer. Her sister had ovarian cancer. * Social History: T obacco Use: T obacco Use/Smoking . D rugs/Alcohol: D rugs H ave you used drugs other than those for medical reasons in the past 12 months? N o Alcohol Screen D id you have a drink containing alcohol in the past year? N o P oints 0 I nterpretation N egative S he is and has 2 children. 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 She lives in [place], [place]. No history of smoking cigarettes. * Medications: T akingFish Oil 1200 MG Capsule 2 capsules Orally Once a day Vitamin D 2000 UNIT Tablet as directed Orally Multivitamins Tablet Chewable Orally Medication List reviewed and reconciled with the patientTaking Fish Oil 1200 MG Capsule 2 capsules Orally Once a day Taking Vitamin D 2000 UNIT Tablet as directed Orally Taking Multivitamins Tablet Chewable Orally Medication List reviewed and reconciled with the patient * Allergies: N o Known Drug Allergyno[Allergies Verified] Objective: * Vitals: H t: 63, Wt:150, BMI:26.57, BP:140/84, HR:74, Temp:97.9, Ht-cm: 160.02, Wt-k.04. * Examination: G eneral Examination: GENERAL APPEARANCE: p leasant, well nourished, well developed, in no acute distress, calm and relaxed, overweight, elderly woman. HEAD: a traumatic, normocephalic. EYES: e asher, perrla, anicteric, conjugate. EARS: n ormal. NOSE: s eptum intact. ORAL CAVITY: n ormal, unremarkable. NECK/THYROID: n o jugular venous distention, no carotid bruit, thyroid normal, Diminished range of motion with pain to right rotation and right lateral flexion, pain is experienced right neck right shoulder and down right arm. LYMPH NODES: n o enlarged lymph nodes,spleen normal. SKIN: n o suspicious lesions, anicteric. HEART: n o clicks, gallops, murmurs, or rubs, regular rhythm, S1, S2 normal, no s3, or vascular bruits. LUNGS: c lear to auscultation . BREASTS: N ot examined. ABDOMEN: b owel sounds normal, no ascites, no organomegaly, no mass, overweight. RECTAL EXAM: n ot examined. MUSCULOSKELETAL: e xtremities unremarkable, no clubbing, cyanosis or edema, Passive range of motion of right shoulder and elbow is without pain, range of motion of the neck reproduces the pain. PERIPHERAL PULSES: n ormal. NEUROLOGIC: a lert and oriented, cranial nerves 2-12 grossly intact, deep tendon reflexes 2+ symmetrical, motor strength normal upper and lower extremities, sensory exam intact. PSYCH: a lert, oriented. Assessment: * Assessment: 1. H ypothyroidism - E03.9 (Primary) N otes :Her thyroid function tests have been in the normal range with the TSH 4.35. No change in her regimen was made. She will continue on her current dose. 2 . D iplopia - H53.2 N otes :She has had no further diplopia and this problem has resolved 3 . C ervical radiculopathy - M54.12 N otes :The pain is reproduced by rotation and flexion of the neck to the right. She will use a heating pad and Tylenol and ibuprofen. She will refrain from heavy lifting. Follow-up was arranged. A muscle relaxant, cyclobenzaprine, was prescribed. Imaging will be done if this does not improve. 4 . O steopenia - M85.80 N otes :She has had no apparent fractures. She will continue on her current calcium tablets. 5 . H yperlipidemia - E78.5 N otes :Her lipids have improved since the last determination. Her total cholesterol is slightly out of range. Her triglycerides have improved but are still elevated. We reviewed diet today. 6 . O karin weight - E66.3 N otes :Her weight is stable at 148 pounds and a body mass index 27. I recommend a gradual slow and steady weight loss of 1/2 pound per week through a diet restricted in calories. Plan: * Treatment: * Procedure Codes: * Preventive Medicine: Counseling: C are goal follow-up plan: Counseling for abnormal BMI given Y es Above Normal BMI Follow-up D ietary management education, guidance, and counseling, Dietary needs education * Follow Up: 4 Weeks (Reason: OV) * Images: * Sign off status: Completed true * Provider: Wilton Carias MD Date: Generated for Yudy trejo/Anna/Niralismitting on: 0 11/07/2024 10:25 AM EDT History and Physical Notes * HPI (History of Present Illness) Category Sub-Category Detail Notes COVID-19 Screening Questions Have you had any new onset fever, chills, cough, congestion, sore throat, shortness of breath, muscle aches?: No Have you been exposed to the virus withi n the last 10 days?: No Have you travelled internationally in th e last 10 days?: No Have you been exposed to COVID-19 in the past?: No Examination Category Sub-Category Detail Notes General Examination GENERAL APPEARANCE: pleasant , well nourished, well developed, in no acute distress, calm and relaxed, overweight, elderly woman HEAD: atraumatic, normocep halic EYES: eomi, perrla, anicte dayne, conjugate EARS: normal NOSE: septum intact NECK/THYROID: no jugular venous di stention, no carotid bruit, thyroid normal, Diminished range of motion with pain to right rotation and right lateral flexion, pain is experienced right neck right shoulder and down right arm HEART: no clicks, gallops, murmurs, or rubs, regular rhythm, S1, S2 normal, no s3, or vascular bruits LUNGS: clear to auscultatio n ABDOMEN: bowel sounds normal, no ascites, no organomegaly, no mass, overweight NEUROLOGIC: alert and oriented, cranial nerves 2-12 grossly intact, deep tendon reflexes 2+ symmetrical, motor strength normal upper and lower extremities, sensory exam intact SKIN: no suspicious lesion s, anicteric PERIPHERAL PULSES: normal BREASTS: Not examined MUSCULOSKELETAL: extremities unremark able, no clubbing, cyanosis or edema, Passive range of motion of right shoulder and elbow is without pain, range of motion of the neck reproduces the pain LYMPH NODES: no enlarged lymph no riddhi,spleen normal RECTAL EXAM: not examined PSYCH: alert, oriented ORAL CAVITY: normal, unremarkable
--- OUTSIDE RECORDS SUMMARY | 2024-01-29 07:15 | XMS_ITS ---
Author Organization Jeff Carias III, MD Address [address] [place] [address] Care Team Providers Care Operations Engineer Name Role Phone Jeff Carias Primary Care Provider Allergies Allergen (clinical drug ingredient) Drug/Non Drug Allergy documented on EMR Reaction Allergy Type Onset Date Status No Known Drug Allergy Unknown Drug Allergy Active REASON FOR VISIT Cervical radiculopathy, Shoulder pain, Crohn's disease, Hypothyroidism, Hyperlipidemia, Osteopenia Medications Medication SIG (Take, Route, Frequency, Duration) Notes Start Date End Date Status Cyclobenzaprine HCl 10 MG 1 tablet Orall y three times a day 12/29/2023 Active Vitamin D 2000 UNIT as directed Orally Active Multivitamins Orally Active Fish Oil 1200 MG 2 capsules Orally On ce a day Active Social History Tobacco Use: Social History Observation Description Date Details (start date - stop date) Never Smoker NA - NA Sex Assigned At : Social History Observation Description Sex Assigned At Female Tobacco Control (Standard) Question Answer Notes Tobacco use: Nonsmoker Vital Signs Temperature 98.4 degrees Fahrenheit 01/29/20 24 Blood pressure systolic 136 mm Hg 01/29/20 24 Blood pressure diastolic 72 mm Hg 024 Heart Rate 83 /min 01/29/2024 Height 63 in 01/29/2024 Weight 150 lbs 01/29/2024 BMI 26.57 kg/m2 01/29/2024 Encounters Encounter Location Date Provider Diagnosis Jeff Carias III, MD [address] [place] [address] [place] [phone] 01/29/2024 Jeff Carias Diplopia H53.2 ; Hypothyroidism E03.9 ; Hyperlipidemia E78.5 ; Vitamin D deficiency E55.9 ; Over weight E66.3 ; Osteopenia M85.80 and Crohns disease K50.90 Assessments Encounter Date Diagnosis (ICD Code) Assessment Notes Treatment Notes Treatment Clinical Notes 01/29/2024 Diplopia (ICD-10 - H53.2) She has had no further diplopia and this problem has resolved 01/29/2024 Hypothyroidism (ICD-10 - E03.9) Her thyroid function tests have been in the normal range with the TSH 4.35. No change in her regimen was made. She will continue on her current dose. 01/29/2024 Hyperlipidemia (ICD-10 - E78.5) Comprehensive blood work with a ffasting lipid profile has been ordered prior to her next visit. No change in her regimen was made today. 01/29/2024 Vitamin D deficiency (ICD-10 - E55.9) Continued on her vitamin D supplement. 01/29/2024 Over weight (ICD-10 - E66.3) Her weight is stable at 159 pounds and a body mass index 27. I recommend a gradual slow and steady weight loss of 1/2 pound per week through a diet restricted in calories. 01/29/2024 Osteopenia (ICD-10 - M85.80) She has had no apparent fractures. She will continue on her current calcium tablets. 01/29/2024 Crohns disease (ICD-10 - K50.90) Her inflammatory bowel diseases tolerable unstable. She remains under the care of Dr. Steiner, her colorer hides and skins Her last colonoscopy was in 2011 and was unremarkable except for the Crohn's disease. Plan Of Treatment Medication Medication Name Sig Start Date Stop Date Notes Cyclobenzaprine HCl 10 MG 1 tablet Orall y three times a day 12/29/2023 Vitamin D 2000 UNIT as directed Orally Multivitamins Orally Fish Oil 1200 MG 2 capsules Orally Once a day Pending Test Test Name Order Date PROFILE, FASTING (COMPREHENSIVE METABOLI C) 01/29/2024 CBC WITH AUTO DIFF 01/29/2024 Lipid Panel 01/29/2024 Vitamin D 25-OH Total 01/29/2024 Next Appt Details Follow Up: As Scheduled, Mansi vergara physical in June, Reason: OV, Annual physical Provider Name:Jeff Carias, 12/11/2024 10:30:00 AM, [address] [place] [address] [place], [phone], Provider Name:Jeff Carias, 06/06/2025 09:30:00 AM, [address] [place] [address] [place], [address], Progress Notes * Oriana HINDS ADOB: [birth year] (78 yo F)Acc No.[id number]:01/29/2024 Progress Notes Patient: Oriana BAHENA A Provider: Wilton Carias MD :1945 A ge:78 Y S ex:Female Date:01/29/2024 Address:[address] [place], [place] [id number] Subjective: * Chief Complaints: * C ervical radiculopathyShoulder painCrohn's diseaseHypothyroidismHyperlipidemiaOsteopenia * HPI: C OVID-19 Screening: Questions [...] The patient, a 78-year-old female, presented with pain in her right hand, specifically in the fingers. The pain was severe enough to wake her up at night and was described as sharp. The pain originated from the palm and extended to all fingers. The patient reported that the pain was alleviated by not bending the hand at night and by taking ibuprofen and a muscle relaxant. The patient also reported a tremor in her hand, which was diagnosed as an essential tremor by a neurologist. The patient also mentioned stiffness in the neck area, which has since improved. The patient denied any double vision. * ROS: G eneral/Constitutional: Admits p ain, N yoselin and right shoulder with motion.?Chills d enies. F atigue a dmits. F ever d enies. E NT: Decreased hearing d enies. R espiratory: Cough d enies. C ardiovascular: [...] enies. L ow back pain d enies. A dmits T remor. P sychiatric: Depressed mood d enies. * Medical History: * Surgical History: T &A partial ileocolectomy tubal ligation colonoscopy 2008dental extractions 07/2022No history * Hospitalization/Major Diagno stic [...] Social History: T obacco Use: T obacco Control (Standard) T obacco use: N onsmoker S he is and has 2 children. 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 She lives in [place], [place]. No history of smoking cigarettes. * Medications: T akingFish Oil 1200 MG Capsule 2 capsules Orally Once a day Vitamin D 2000 UNIT Tablet as directed Orally Multivitamins Tablet Chewable Orally Cyclobenzaprine HCl 10 MG Tablet 1 tablet Orally three times a day , stop date 03/21/2024Medication List reviewed and reconciled with the patientTaking Fish Oil 1200 MG Capsule 2 capsules Orally Once a day Taking Vitamin D 2000 UNIT Tablet as directed Orally Taking Multivitamins Tablet Chewable Orally Taking Cyclobenzaprine HCl 10 MG Tablet 1 tablet Orally three times a day , stop date 03/21/2024Medication List reviewed and reconciled with the patient * Allergies: N o Known Drug Allergyno[Allergies Verified] Objective: * Vitals: H t: 63, Wt:150, BMI:26.57, BP:136/72, HR:83, Temp:98.4, Ht-cm: 160.02, Wt-k.04. * Examination: G eneral Examination: GENERAL APPEARANCE: p leasant, well nourished, well developed, in no acute distress, calm and relaxed, overweight, woman. HEAD: a traumatic, normocephalic. EYES: e [...] xtremities unremarkable, no clubbing, cyanosis or edema, Improved pain with range of motion of shoulders and neck. PERIPHERAL PULSES: n ormal. NEUROLOGIC: a lert and oriented, cranial nerves 2-12 grossly intact, deep tendon reflexes 2+ symmetrical, motor strength normal upper and lower extremities, sensory exam intact. PSYCH: a lert, oriented. - : N yoselin:Stiffness has improved, Hand: Severe pain, especially at night, Tremor: Essential tremor diagnosed. Assessment: * Assessment: 1. H ypothyroidism - E03.9 (Primary) N otes :Her thyroid function tests have been in the normal range with the TSH 4.35. No change in her regimen was made. She will continue on her current dose. 2 . D iplopia - H53.2 N otes :She has had no further diplopia and this problem has resolved 3 . H yperlipidemia - E78.5 N otes :Comprehensive blood work with a ffasting lipid profile has been ordered prior to her next visit.? No change in her regimen was made today. 4 . V itamin D deficiency - E55.9 N otes :Continued on her vitamin D supplement. 5 . O karin weight - E66.3 N otes :Her weight is stable at 159 pounds and a body mass index 27. I recommend a gradual slow and steady weight loss of 1/2 pound per week through a diet restricted in calories. 6 . O steopenia - M85.80 N otes :She has had no apparent fractures. She will continue on her current calcium tablets. 7 . C rohns disease - K50.90 N otes :Her inflammatory bowel diseases tolerable unstable. She remains under the care of Dr. Steiner, her colorer hides and skins Her last colonoscopy was in 2011 and was unremarkable except for the Crohn's disease. Plan: * Treatment: 2. H yperlipidemia L AB: PROFILE, FASTING (COMPREHENSIVE METABOLIC) L AB: CBC WITH AUTO DIFF L AB: Lipid Panel L AB: Vitamin D 25-OH Total 3. V itamin D deficiency L AB: PROFILE, FASTING (COMPREHENSIVE METABOLIC) L AB: CBC WITH AUTO DIFF L AB: Lipid Panel L AB: Vitamin D 25-OH Total * Procedure Codes: * Preventive Medicine: Counseling: C are goal follow-up plan: Counseling for abnormal BMI given Y es Above Normal BMI Follow-up D ietary management education, guidance, and counseling, Dietary needs education * Follow Up: A s Scheduled, Annual physical in June (Reason: OV, Annual physical) * Images: * Sign off status: Completed true * Provider: Wilton Carias MD Date: 03/30/2023 Generated for Yudy trejo/Anna/eTraeganitting on: 0 11/07/2024 10:25 AM EDT History and Physical Notes * HPI (History of Present Illness) Category Sub-Category Detail Notes COVID-19 Screening Questions Have you had any new onset fever, chills, cough, congestion, sore throat, shortness of breath, muscle aches?: No Have you been exposed to the virus withi n the last 10 days?: No Have you travelled internationally in [facility] last 10 days?: No Have you been exposed to COVID-19 in the past?: No Examination Category Sub-Category Detail Notes General Examination GENERAL APPEARANCE: pleasant , well nourished, well developed, in no acute distress, calm and relaxed, overweight, woman HEAD: atraumatic, normocep halic EYES: eomi, [...] unremark able, no clubbing, cyanosis or edema, Improved pain with range of motion of shoulders and neck LYMPH NODES: no enlarged lymph no riddhi,spleen normal RECTAL EXAM: not examined PSYCH: alert, oriented ORAL CAVITY: normal, unremarkable
--- OUTSIDE RECORDS SUMMARY | 2024-06-05 05:30 | XMS_ITS ---
Author Organization Jeff Carias III, MD Address [address] [place] [address] Care Team Providers Care Banquet Food Server Name Role Phone Jeff Carias Primary Care Provider [phone] Allergies Allergen (clinical drug ingredient) Drug/Non Drug Allergy documented on EMR Reaction Allergy Type Onset Date Status No Known Drug Allergy Unknown Drug Allergy Active Results Component Value Reference Range Notes URINE DIP STICK Reviewed date:06/05/2024 09:51:13 AM Interpretation: Performing Lab: Notes/Report: SG 1.005 1.005 - 1.025 pH 5.0 5.0 - 9.0 MAIA Negative Negative - NIT Negative Negative - PRO 15 Negative - Trace GLU Negative Negative - KET Negative Negative - UBG 0.2 0.1 - 1.8 DARBY Negative 0.2 - 1.3 BLD Negative Negative - REASON FOR VISIT annual exam Medications Medication SIG (Take, Route, Fr equency, Duration) Notes Start Date End Date Status Fish Oil 1200 MG 2 capsules Orally Once a day Active Vitamin D 2000 UNIT as directed Orally Active Multivitamins Orally Active Social History Tobacco Use: Social History Observation Description Date Details (start date - stop date) Never Smoker NA - NA Sex Assigned At : Social History Observation Description Sex Assigned At Female Tobacco Control (Standard) Question Answer Notes Tobacco use: Nonsmoker Additional Findings: Tobacco non-user Aggressive nonsmoker AUDIT-C (Standard) Question Answer Notes Did you have a drink containing alcohol in the p ast year? No Points 0 Interpretation Negative Vital Signs Temperature 98.1 degrees Fahrenheit 06/06/19 25 Blood pressure systolic 134 mm Hg 06/06/19 25 Blood pressure diastolic 70 mm Hg 025 Heart Rate 72 /min 06/05/2024 Height 63 in 06/05/2024 Weight 144 lbs 06/05/2024 BMI 25.51 kg/m2 06/05/2024 Encounters Encounter Location Date Provider Diagnosis Jeff Carias III, MD [address] [place] [address] [address] [place], [place] [id number] 06/05/2024 Jeff Carias Diplopia H53.2 ; Cath Lab Technologist hns disease K50.90 ; Hypothyroidism E03.9 ; Hyperlipidemia E78.5 ; Menopausal state N95.1 ; Eczema L30.9 ; Osteopenia M85.80 ; Vitamin D deficiency E55.9 and Small bowel obstruction K56.609 Assessments Encounter Date Diagnosis (ICD Code) Assessment Notes T reatment Notes Treatment Clinical Notes 06/05/2024 Diplopia (ICD-10 - H53.2) She has had no further diplopia and this problem has resolved 06/05/2024 Crohns disease (ICD-10 - K50.90) The Crohn's disease is controlled. She sees gastroenterology tomorrow. She is due for collonoscopy. 06/05/2024 Hypothyroidism (ICD-10 - E03.9) She is currently euthyroid. 06/05/2024 Hyperlipidemia (ICD-10 - E78.5) Her total cholesterol 191. I recommended a diet low in animal fat. I recommended weight loss and regular exercise. 06/05/2024 Menopausal state (ICD-10 - N95.1) She has not experienced any vaginal bleeding. 06/05/2024 Eczema (ICD-10 - L30.9) Examination of the skin showed very little eczema today. This problem is inactive. 06/05/2024 Osteopenia (ICD-10 - M85.80) She has had no apparent fractures. She will continue on her current calcium tablets. 06/05/2024 Vitamin D deficiency (ICD-10 - E55.9) Continued on her vitamin D supplement. 06/05/2024 Small bowel obstruction (ICD-10 - K56.609) This resolved over 24 hours a month ago. I strongly recommend that she have a colonoscopy as she is due and there was thickening of the small bowel terminal portion. She has declined saying she was not considered until next September. Plan Of Treatment Medication Medication Name Sig Start Date Stop Date Notes Fish Oil 1200 MG 2 capsules Orally Once a day Vitamin D 2000 UNIT as directed Orally Multivitamins Orally Pending Test Test Name Order Date PROFILE, FASTING (COMPREHENSIVE METABOLI C) 06/05/2024 TSH (THYROID STIMULATING HORMONE) 2024 CBC w DIFF 06/05/2024 Lipid Panel 06/05/2024 Free T4 (Free Thyroxine) 06/05/2024 Next Appt Details Follow Up: 6 Months, Reason: ov review labs Provider Name:Jeff Carias, 12/11/2024 10:30:00 AM, [address] [place] [address] [address], [place], [phone], Provider Name:Jeff Carias, 06/06/2025 09:30:00 AM, [address] [place] [address] [address], [place], [phone], Progress Notes * Oriana HINDS ADOB: [birth year] (78 yo F)Acc No.[id number]:06/05/2024 Progress Notes Patient: Rosemary DOMINGUEZO Oriana Xiang Provider: Wilton Carias MD :1945 A ge:78 Y S ex:Female Date:06/05/2024 Address:[address] [place] [id number] Subjective: * Chief Complaints: * A nnual exam * HPI: D epression Screening: S he returns to the office at the age of 78 for her annual physical examination. She has an appointment tomorrow to see Dr. Jeff Avila, her mill dresser, to discuss an upcoming colonoscopy. Her Crohn's disease has been mild to moderate but does not limit her activities of daily life. She has lost 6 pounds since her last visit. She says her legs are tingling a bit more on the left she can control this heat and ibuprofen. This is a manifestation of her back pain. She has been compliant with all of her medications. She has no new complaints.? She feels generally healthy and well. PHQ-9 L ittle interest or pleasure in doing things?Not at all F eeling down, depressed, or hopeless N ot at all T rouble falling or staying asleep, or sleeping too much N ot at all F eeling tired or having little energy N ot at all P oor appetite or overeating N ot at all F eeling bad about yourself or that you are a failure, or have let yourself or your family down N ot at all T rouble concentrating on things, such as reading the newspaper or watching television N ot at all M oving or speaking so slowly that other people could have noticed; or the opposite, being so fidgety or restless that you have been moving around a lot more than usual N ot at all T houghts that you would be better off or of hurting yourself in some way N ot at all T otal Score 0 C OVID-19 Screening: Questions H ave you had any new onset fever, chills, cough, congestion, sore throat, shortness of breath, muscle aches? N o F all Risk Screening: Fall History H ave you had any falls with injury in the past year? N o H ave you had two or more falls in the past year? N o F all Risk Assessment: N o falls in the past year S ERNST Questions: SDOH Questions I n the past year have you been worried about losing your housing? N o I n the past year have you or any family members you live with been unable to get any of the following when it was really needed? Check all that apply: N one * ROS: G eneral/Constitutional: pain L egs. C hills d enies. F atigue a dmits. F ever d enies. E NT: Decreased hearing d enies. R espiratory: Cough d enies. C ardiovascular: Chest pain with exertion d enies. D yspnea on exertion?denies. S hortness of breath d enies. G astrointestinal: Constipation o ccasional. D ecreased appetite d enies. D iarrhea t hat is infrequent. H e[place] o ccasional. N ausea d enies.?Rectal bleeding d enies. V omiting d enies. [...] partial ileocolectomy tubal ligation colonoscopy 2007dental extractions 07/2022 * Hospitalization/Major Diagno stic Procedure: N o history * Family History: F ather: , colon cancer, diagnosed with Cancer. M other: , hypertension,hypothyroidism, gout, cataracts, diagnosed with HTN. C hildren: alive. S on(s): alive. D aughter(s): alive. S iblings: alive, Pre Diabetic. 3 brother(s) , 1 sister(s) . 2 daughter(s) - healthy. . Her brother had prostate cancer. Her sister had ovarian cancer. * Social History: T obacco Use: T obacco Control (Standard) T obacco use: N onsmoker A dditional Findings: Tobacco non-user A ggressive nonsmoker D rugs/Alcohol: D rugs H ave you used drugs other than those for medical reasons in the past 12 months? N o D rug/Alcohol: A RAYMOND-C (Standard) D id you have a drink containing alcohol in the past year? N o P oints 0 I nterpretation N egative S he is and has 2 children. 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 She lives in [place], [place]. No history of smoking cigarettes. * Medications: T akingFish Oil 1200 MG Capsule 2 capsules Orally Once a day Vitamin D 2000 UNIT Tablet as directed Orally Multivitamins Tablet Chewable Orally Taking Fish Oil 1200 MG Capsule 2 capsules Orally Once a day Taking Vitamin D 2000 UNIT Tablet as directed Orally Taking Multivitamins Tablet Chewable Orally DiscontinuedCyclobenzaprine HCl 10 MG Tablet 1 tablet Orally three times a day Medication List reviewed and reconciled with the patientDiscontinued Cyclobenzaprine HCl 10 MG Tablet 1 tablet Orally three times a day Medication List reviewed and reconciled with the patient * Allergies: N o Known Drug Allergyno[Allergies Verified] Objective: * Vitals: H t: 63, Wt:144, BMI:25.51, BP:134/70, HR:72, Temp:98.1, Ht-cm: 160.02, Wt-k.32. * P ast Orders: Lab:Vitamin D 25-OH Total * Collection Date 05/27/2024 05/23/2022 Collection Time 06:37 AM 07:29 AM Order Date 05/27/2024 05/23/2022 Vitamin D 25-OH Total 34.7 (Ref Range: >30 ng/mL) 28.0 (Ref Range: >30 ng/mL) * Lab:Complete Blood Count Aut o Diff * Collection Date 05/27/2024 07/02/2023 05/25/2023 Collection Time 06:37 AM 05:07 AM 06:14 AM Order Date 05/27/2024 07/02/2023 05/25/2023 White Blood Count 6.0 (Ref Range: 4.8-10.8 X10*3/uL) 4.4 L (Ref Range: 4.8-10.8 X10*3/uL) 6.7 (Ref Range: 4.8-10.8 X10*3/uL) Red Blood Count 4.55 (Ref Range: 4.20-5.50 X10*6/uL) 4.59 (Ref Range: 4.20-5.50 X10*6/uL) 4.24 (Ref Range: 4.20-5.50 X10*6/uL) Hemoglobin 12.6 (Ref Range: 12.0-16.0 g/dl) 12.9 (Ref Range: 12.0-16.0 g/dl) 12.1 (Ref Range: 12.0-16.0 g/dl) Hematocrit 39.6 (Ref Range: 37.0-47.0 %) 38.3 (Ref Range: 37.0-47.0 %) 37.1 (Ref Range: 37.0-47.0 %) Mean Corpuscular Volume 87.0 (Ref Range: 80.0-98.0 fL) 83.4 (Ref Range: 80.0-98.0 fL) 87.5 (Ref Range: 80.0-98.0 fL) Mean Corpuscular Hemoglobin 27.7 (Ref Range: 27.0-33.0 pg) 28.1 (Ref Range: 27.0-33.0 pg) 28.5 (Ref Range: 27.0-33.0 pg) Mean Corpuscular HGB Conc 31.8 (Ref Range: 31.0-35.0 g/dl) 33.7 (Ref Range: 31.0-35.0 g/dl) 32.6 (Ref Range: 31.0-35.0 g/dl) Red Cell Distribution Width 13.5 (Ref Range: 11.0-16.0 %) 13.7 (Ref Range: 11.0-16.0 %) 13.0 (Ref Range: 11.0-16.0 %) Platelet Count 347 (Ref Range: 160-400 X10*3/uL) 312 (Ref Range: 160-400 X10*3/uL) 331 (Ref Range: 160-400 X10*3/uL) Mean Platelet Volume 8.8 L (Ref Range: 9.4-12.3 fL) 9.1 L (Ref Range: 9.4-12.3 fL) 8.9 L (Ref Range: 9.4-12.3 fL) Neutrophils Percent Auto 56.2 (Ref Range: 45-73 %) 80.9 H (Ref Range: 45-73 %) 47.5 (Ref Range: 45-73 %) Imm Gran Pct Auto 0.2 (Ref Range: 0.0-0.4 %) 0.2 (Ref Range: 0.0-0.4 %) 0.3 (Ref Range: 0.0-0.4 %) Lymphocytes Percent Auto 34.3 (Ref Range: 20-40 %) 8.2 L (Ref Range: 20-40 %) 43.4 H (Ref Range: 20-40 %) Monocytes Percent Auto 7.4 (Ref Range: 2-11 %) 10.2 (Ref Range: 2-11 %) 7.0 (Ref Range: 2-11 %) Eosinophils Percent Auto 1.2 (Ref Range: 0-4 %) 0.0 (Ref Range: 0-4 %) 0.9 (Ref Range: 0-4 %) Basophils Percent Auto 0.7 (Ref Range: 0-2 %) 0.5 (Ref Range: 0-2 %) 0.9 (Ref Range: 0-2 %) NRBC Pct Auto 0.0 (Ref Range: 0.0-0.2 /100WBC) 0.0 (Ref Range: 0.0-0.2 /100WBC) 0.0 (Ref Range: 0.0-0.2 /100WBC) Neutrophils Absolute Auto 3.4 (Ref Range: 2.0-8.3 x10*3/uL) 3.6 (Ref Range: 2.0-8.3 x10*3/uL) 3.2 (Ref Range: 2.0-8.3 x10*3/uL) Imm Gran Abs Auto 0.01 (Ref Range: 0.00-0.03 X10*3/uL) 0.01 (Ref Range: 0.00-0.03 X10*3/uL) 0.02 (Ref Range: 0.00-0.03 X10*3/uL) Lymphocytes Absolute Auto 2.0 (Ref Range: 1.2-4.9 X10*3/uL) 0.4 L (Ref Range: 1.2-4.9 X10*3/uL) 2.9 (Ref Range: 1.2-4.9 X10*3/uL) Monocytes Absolute Auto 0.4 (Ref Range: 0.1-1.2 X10*3/uL) 0.5 (Ref Range: 0.1-1.2 X10*3/uL) 0.5 (Ref Range: 0.1-1.2 X10*3/uL) Eosinophils Absolute Auto 0.1 (Ref Range: 0.0-0.4 X10*3/uL) 0.0 (Ref Range: 0.0-0.4 X10*3/uL) 0.1 (Ref Range: 0.0-0.4 X10*3/uL) Basophils Absolute Auto 0.0 (Ref Range: 0.0-0.2 X10*3/uL) 0.0 (Ref Range: 0.0-0.2 X10*3/uL) 0.1 (Ref Range: 0.0-0.2 X10*3/uL) NRBC Abs Auto 0.000 (Ref Range: 0.0-0.012 X10*3/uL) 0.000 (Ref Range: 0.0-0.012 X10*3/uL) 0.000 (Ref Range: 0.0-0.012 X10*3/uL) * Lab:Reji zendejas Fast * Collection Date 05/27/2024 05/25/2023 05/23/2022 Collection Time 06:37 AM 06:14 AM 07:29 AM Order Date 05/27/2024 05/25/2023 05/23/2022 Sodium 144 (Ref Range: 135-145 mmol/L) 143 (Ref Range: 135-145 mmol/L) 143 (Ref Range: 135-145 mmol/L) Bilirubin Total 0.5 (Ref Range: 0.0-1.0 mg/dL) 0.5 (Ref Range: 0.0-1.0 mg/dL) 0.8 (Ref Range: 0.0-1.0 mg/dL) Aspartate Amino Transferase 19 (Ref Range: 5-31 U/L) 15 (Ref Range: 5-31 U/L) 17 (Ref Range: 5-31 U/L) Alanine Aminotransferase 13 (Ref Range: 0-31 U/L) 14 (Ref Range: 0-31 U/L) 13 (Ref Range: 0-31 U/L) Total Protein 7.3 (Ref Range: 6.5-8.0 g/dL) 6.6 (Ref Range: 6.5-8.0 g/dL) 6.5 (Ref Range: 6.5-8.0 g/dL) Albumin Level 3.9 (Ref Range: 3.5-5.0 g/dL) 3.7 (Ref Range: 3.5-5.0 g/dL) 4.0 (Ref Range: 3.5-5.0 g/dL) Alkaline Phosphatase 80 (Ref Range: 39-117 U/L) 76 (Ref Range: 39-117 U/L) 81 (Ref Range: 39-117 U/L) Potassium 4.5 (Ref Range: 3.3-5.1 mmol/L) 4.0 (Ref Range: 3.3-5.1 mmol/L) 3.9 (Ref Range: 3.3-5.1 mmol/L) Chloride 109 H (Ref Range: 96-108 mmol/L) 107 (Ref Range: 96-108 mmol/L) 105 (Ref Range: 96-108 mmol/L) Carbon Dioxide 27 (Ref Range: 22-29 mmol/L) 27 (Ref Range: 22-29 mmol/L) 27 (Ref Range: 22-29 mmol/L) Anion Gap 13 (Ref Range: 12-20) 13 (Ref Range: 12-20) 15 (Ref Range: 12-20) Blood Urea Nitrogen 9 (Ref Range: 9-16 mg/dL) 12 (Ref Range: 9-16 mg/dL) 11 (Ref Range: 9-16 mg/dL) Creatinine 0.74 (Ref Range: 0.5-1.4 mg/dL) 0.76 (Ref Range: 0.5-1.4 mg/dL) 0.87 (Ref Range: 0.5-1.4 mg/dL) Estimated Glomerular Filt Rate > 60 > 60 > 60 Glucose Fasting 91 (Ref Range: 60-99 mg/dL) 86 (Ref Range: 60-99 mg/dL) 87 (Ref Range: 60-99 mg/dL) Calcium 9.1 (Ref Range: 8.4-10.2 mg/dL) 8.9 (Ref Range: 8.4-10.2 mg/dL) 9.0 (Ref Range: 8.4-10.2 mg/dL) * Lab:Lipid Panel * Collection Date 05/27/2024 05/25/2023 05/23/2022 Collection Time 06:37 AM 06:14 AM 07:29 AM Order Date 05/27/2024 05/25/2023 05/23/2022 Triglycerides 253 H (Ref Range: <150 mg/dL) 187 H (Ref Range: <150 mg/dL) 286 (Ref Range: mg/dL) Cholesterol 191 (Ref Range: <200 mg/dL) 199 (Ref Range: <200 mg/dL) 217 (Ref Range: mg/dL) LDL Cholesterol Calculated 71 (Ref Range: <100 mg/dL) 88 (Ref Range: <100 mg/dL) 93 (Ref Range: mg/dl) HDL Cholesterol 70 (Ref Range: >40 mg/dL) 74 (Ref Range: >40 mg/dL) 67 (Ref Range: mg/dL) * Imaging:MM tomosynthesis scr eening BI * Performed Date 05/23/2024 05/22/2023 06/15/2021 09:25 AM 09:15 AM 10:00 AM Order Date 05/23/2024 05/22/2023 06/15/2021 * Imaging:MAMMOGRAM DIGITAL BI LATERAL SCREEN * Performed Date 07/26/2018 07/24/2017 07/21/2016 01:26 PM 08:16 AM 12:52 PM Order Date 05/08/2018 04/27/2017 04/21/2016 05/23/2024 Result: undefined * Examination: G eneral Examination: GENERAL APPEARANCE: [...] normal, no ascites, no organomegaly, no mass, overweight, no ascites, no hepatosplenomegaly, no guarding or rigidity, no rebound tenderness. RECTAL EXAM: n ot examined. MUSCULOSKELETAL: e xtremities unremarkable, no clubbing, cyanosis or edema. PERIPHERAL PULSES: n ormal. NEUROLOGIC: a lert and oriented, cranial nerves 2-12 grossly intact, deep tendon reflexes 2+ symmetrical, motor strength normal upper and lower extremities, sensory exam intact. PSYCH: a lert, oriented, thought process logical, goal directed, speech clear, cognitive function intact. Assessment: * Assessment: 1. C rohns disease - K50.90 (Primary) N otes :The Crohn's disease is controlled. She sees gastroenterology tomorrow. She is due for collonoscopy. 2 . D iplopia - H53.2 N otes :She has had no further diplopia and this problem has resolved 3 . H ypothyroidism - E03.9 N otes :She is currently euthyroid. 4 . H yperlipidemia - E78.5 N otes :Her total cholesterol 191. I recommended a diet low in animal fat. I recommended weight loss and regular exercise. 5 . M enopausal state - N95.1 N otes :She has not experienced any vaginal bleeding. 6 . E czema - L30.9 N otes :Examination of the skin showed very little eczema today. This problem is inactive. 7 . O steopenia - M85.80 N otes :She has had no apparent fractures. She will continue on her current calcium tablets. 8 . V itamin D deficiency - E55.9 N otes :Continued on her vitamin D supplement. 9 . S mall bowel obstruction - K56.609 N otes :This resolved over 24 hours a month ago. I strongly recommend that she have a colonoscopy as she is due and there was thickening of the small bowel terminal portion. She has declined saying she was not considered until next September. Plan: * Treatment: 2. D iplopia Continue Fish Oil Capsule, 1200 MG, 2 capsules, Orally, Once a day; C ontinue Vitamin D Tablet, 2000 UNIT, as directed, Orally; C ontinue Multivitamins Tablet Chewable, Orally. L AB: PROFILE, FASTING (COMPREHENSIVE METABOLIC) L AB: TSH (THYROID STIMULATING HORMONE) L AB: CBC w DIFF L AB: Lipid Panel L AB: Free T4 (Free Thyroxine) 3. H ypothyroidism L AB: PROFILE, FASTING (COMPREHENSIVE METABOLIC) L AB: TSH (THYROID STIMULATING HORMONE) L AB: CBC w DIFF L AB: Lipid Panel L AB: Free T4 (Free Thyroxine) 4. H yperlipidemia L AB: PROFILE, FASTING (COMPREHENSIVE METABOLIC) L AB: TSH (THYROID STIMULATING HORMONE) L AB: CBC w DIFF L AB: Lipid Panel L AB: Free T4 (Free Thyroxine) * Labs: * L ab: URINE DIP STICK (Collection Date & Time - 06/05/2024) Value Reference Range S G 1.005 1.005 - 1.025 * p H 5.0 5.0 - 9.0 * L EU Negative Negative - * N IT Negative Negative - * P RO 15 Negative - Trace * G MEGAN Negative Negative - * K ET Negative Negative - * U BG 0.2 0.1 - 1.8 * B IL Negative 0.2 - 1.3 * B LD Negative Negative - * Procedure Codes: 8 1002 URINE-NO MICRO * Preventive Medicine: Counseling: C are goal follow-up plan: Counseling for abnormal BMI given Y es Above Normal BMI Follow-up D ietary needs education * Follow Up: 6 Months (Reason: ov review labs) * Images: * Sign off status: Completed true * Provider: Wilton Carias MD Date: 0 06/05/2024 Generated for Yudy trejo/Anna/eTransmitting on: 0 11/07/2024 10:25 AM EDT History and Physical Notes * HPI (History of Present Illness) Category Sub-Category Detail Notes Depression Screening PHQ-9 Little inte rest or pleasure in doing things: Not at all Feeling down, depressed, or hopeless: No t at all Trouble falling or staying asleep, or sl eeping too much: Not at all Feeling tired or having little energy: N ot at all Poor appetite or overeating: Not at all Feeling bad about yourself o r that you are a failure, or have let yourself or your family down: Not at all Trouble concentrating on thi ngs, such as reading the newspaper or watching television: Not at all Moving or speaking so slowly that other people could have noticed; or the opposite, being so fidgety or restless that you have been moving around a lot more than usual: Not at all Thoughts that you would be b gerardo off or of hurting yourself in some way: Not at all Total Score: 0 Fall Risk Screening Fall History Have you had any falls with injury in the past year?: No Have you had two or more falls in the st year?: No Fall Risk Assessment:: No falls in the p year COVID-19 Screening Questions Have you had any new onset fever, chills, cough, congestion, sore throat, shortness of breath, muscle aches?: No SDOH Questions SDOH Questions In the past year have you been worried about losing your housing?: No In the past year have you or any family members you live with been unable to get any of the following when it was really needed? Check all that apply:: None Examination Category Sub-Category Detail Notes General Examination [...] normal, no ascites, no organomegaly, no mass, overweight, no ascites, no hepatosplenomegaly, no guarding or rigidity, no rebound tenderness NEUROLOGIC: alert and oriented, cranial nerves 2-12 grossly intact, deep tendon reflexes 2+ symmetrical, motor strength normal upper and lower extremities, sensory exam intact SKIN: no suspicious lesion s, anicteric PERIPHERAL PULSES: normal BREASTS: no masses palpable b ilaterally MUSCULOSKELETAL: extremities unremark able, no clubbing, cyanosis or edema LYMPH NODES: no enlarged lymph no riddhi,spleen normal RECTAL EXAM: not examined PSYCH: alert, oriented, tho ught process logical, goal directed, speech clear, cognitive function intact ORAL CAVITY: normal, unremarkable
--- OUTSIDE RECORDS SUMMARY | 2024-11-07 10:25 | XMS_ITS | Patient Health Record ---
Author Organization [facility] Address [address] [place] [address] Care Team Providers Care Safety Director Name Role Phone Jeff Carias MD Primary Care Provider Unavailab le Jeff Avila Unavailable [phone] Allergies No Known Allergies Reason For Referral Referring Provider First Name Jeff Referring Provider Last Name Aretha Referring Provider Speciality Oncology Referred Organization [facility] Referred Provider Jeff Avila Referred Address [address] [facility],[address],[place], [place],[address], Referred Provider Specialty Gastroentero logy Referral Priority Routine Medications Medication SIG (Take, Route, Frequency, Duration) Notes Start Date End Date Status Multivitamin Active Fish Oil Active Vitamin D Active Social History Tobacco Use: Social History Observation Description Date Details (start date - stop date) Never Smoker NA - NA Tobacco Use/Smoking Question Answer Notes Patient is a nonsmoker AUDIT-C (Standard) Question Answer Notes Did you have a drink containing alcohol in the p ast year? No Points 0 Interpretation Negative Section Notes: Nonsmoker, no significant al cohol Nonsmoker, no significant al cohol Problems Problem Type SNOMED Code ICD Code Onset Dates Problem Status W/U Status Risk Notes Problem Colon cancer screening (776820115) Colon cancer screening (Z12.11) Active confirmed Problem Crohn's disease of small intestine (26382261) Crohn''s disease of small intestine with other complication (K50.018) Active confirmed Vital Signs Blood pressure diastolic 11 mm Hg 06/06/2024 Height 5 ft 2.5 in in 06/06/2024 Blood pressure systolic 111 mm Hg 06/06/2024 Weight 144 lbs 06/06/2024 BMI 25.92 kg/m2 06/06/2024 Procedures Procedure Date Ordered Date Performed Result Body Sit e COLONOSCOPY 06/06/2024 N/A Encounters Encounter Location Date Provider Diagnosis [facility] [address] [place] [address] 06/06/2024 Jeff Avila Crohn''s disease of small intestine with other complication K50.018 ; Colon cancer screening Z12.11 and Family history of colon cancer in father Z80.0 [facility] [address] [place] [address] 12/07/2023 Jeff Avila Crohn''s disease of small intestine with other complication K50.018 and Colon cancer screening Z12.11 Assessments Encounter Date Diagnosis (ICD Code) Assessment Notes Treatment Notes Treatment Clinical Notes Section Notes 06/06/2024 Crohn''s disease of small intestine with other complication (ICD-10 - K50.018) Overall, Oriana appears quite well and does not appear to be having any active symptoms of her underlying Crohn's disease. She certainly not had any symptoms of a recurrent bowel obstruction as she had 1 year ago. She remains asymptomatic in regard to the Crohn's on no particular medical regimen. As such we will continue to observe her in this regard. I did review with her the need for colorectal cancer screening again in regard to colorectal cancer prevention and/or early detection, as well as the need to assess the activity of her Crohn's disease, particularly at the anastomosis in regard to the obstruction she had last year. She is agreeable to having that done in the Fall. Full consent has been taken for this, including risks of bleeding and perforation. She was advised to stop fish oil for 1 week before the procedure. The procedure will be done with monitored anesthesia care. I did advise Oriana to contact me prior to the colonoscopy if she has any problems or questions I can be of assistance with. Oriana was very comfortable with this plan. Thank you again for allowing me to participate in Oriana's care. I shall continue to keep you advised of her progress.. 12/07/2023 Colon cancer screening (ICD-10 - Z12.11) [...] keep you a advised of her progress. 06/06/2024 Colon cancer screening (ICD-10 - Z12.11) Overall, Oriana appears quite well and does not appear to be having any active symptoms of her underlying Crohn's disease. She certainly not had any symptoms of a recurrent bowel obstruction as she had 1 year ago. She remains asymptomatic in regard to the Crohn's on no particular medical regimen. As such we will continue to observe her in this regard. I did review with her the need for colorectal cancer screening again in regard to colorectal cancer prevention and/or early detection, as well as the need to assess the activity of her Crohn's disease, particularly at the anastomosis in regard to the obstruction she had last year. She is agreeable to having that done in the Fall. Full consent has been taken for this, including risks of bleeding and perforation. She was advised to stop fish oil for 1 week before the procedure. The procedure will be done with monitored anesthesia care. I did advise Oriana to contact me prior to the colonoscopy if she has any problems or questions I can be of assistance with. Oriana was very comfortable with this plan. Thank you again for allowing me to participate in Oriana's care. I shall continue to keep you advised of her progress.. 06/06/2024 Family history of colon cancer in father (ICD-10 - Z80.0) Overall, Oriana appears quite well and does not appear to be having any active symptoms of her underlying Crohn's disease. She certainly not had any symptoms of a recurrent bowel obstruction as she had 1 year ago. She remains asymptomatic in regard to the Crohn's on no particular medical regimen. As such we will continue to observe her in this regard. I did review with her the need for colorectal cancer screening again in regard to colorectal cancer prevention and/or early detection, as well as the need to assess the activity of her Crohn's disease, particularly at the anastomosis in regard to the obstruction she had last year. She is agreeable to having that done in the Fall. Full consent has been taken for this, including risks of bleeding and perforation. She was advised to stop fish oil for 1 week before the procedure. The procedure will be done with monitored anesthesia care. I did advise Oriana to contact me prior to the colonoscopy if she has any problems or questions I can be of assistance with. Oriana was very comfortable with this plan. Thank you again for allowing me to participate in Oriana's care. I shall continue to keep you advised of her progress.. 12/07/2023 Other We will discuss a colonoscopy [...] advised of her progress. Plan Of Treatment Pending Test Test Name Order Date COLONOSCOPY 06/06/2024 Next Appt Details Provider Name:Jeff Avila , 12/04/2024 07:30:00 AM, [address] [place] [address] , [place], [place], [phone], Insurance Providers Payer Name Payer Address Payer Phone Subscriber Number Group Number Insured Name Patient Relationship to Insured Coverage Start Date Coverage End Date [facility] [address] [place] [phone] [id number] ORIANA HINDS Self - patient is the insured Medical (General) History Medical History History ICD Code Denies NC,DM,CVA,Lung disease,renal dise ase Crohn's disease with surgery [...] same time and had not seen a chronic disease manager since that time. Hospitalization in June of 2023 for a transient partial small bowel obstruction that resolved within 48 hours on its own. The CT scan describes some thickening in the distal small bowel consistent with Crohn's but no significant surrounding inflammation, perforation, nor abscess. She did not require any steroids nor NG tube decompression. Surgical History Surgery Date(Month/Year) Tonsillectomy and adenoidectomy 1953 Hemorrhoids 1974 Exploratory laparotomy for C rohn's disease with resection of the distal ileum, cecum, and appendix 1978
--- OUTSIDE RECORDS SUMMARY | 2024-11-07 10:26 | XMS_ITS | Patient Health Record ---
Author Organization Jeff Carias III, MD Address [address] [place] [address] Care Team Providers Care Quantitative Equity Head Name Role Phone Jeff Carias Primary Care [...] 0.2 - 1.3 BLD Negative Negative - MM tomosynthesis screening B I Reviewed date:06/03/2024 04:53:23 AM Interpretation: Performing Lab: Notes/Report: [address] [place] [id number] Mammography Report Signed Patient: Oriana Hinds MR#: [id number] [birth year] : 1945 Acct:[id number] Age/Sex: 78 / F ADM Date: 05/23/24 Loc: [facility] Attending Dr: Jeff Carias MD Ordering Physician: Jeff Carias MD Results: 1Negativ e Date of Service: 05/23/24 Follow Up: 1 Year From Orig inal Mammogram Procedure(s): MM tomosynthesis screening BI Accession Number(s): [id number] cc: Jeff Carias MD EXAMINATION: MM SCREENING DIGITAL BREAST TOMOSYNTHESIS, BILATERAL CLINICAL INFORMATION: Screening. Asymptomatic. COMPARISON: Mammography: Comparison is made with available priors TECHNIQUE: Digital breast mammography with tomosynthesis is performed in both the craniocaudal and mediolateral oblique views along with computer-aided detection (CAD). FINDINGS: The breasts are heterogeneously dense, which [...] target due date for their next mammogram. Electronically signed by: Zayda James DO 05/31/2024 02:15 PM EDT RP Dictated By: Zayda James DO Signed By: <Electronically signed by Zayda James DO in OV> 05/31/24 1415 DD/ 0925 TD/TT: 05/23/24 0940 Utility System Repairer: [place] [facility] [address] [place] [address] Mammography Report Signed Patient: Willie Hinds MR#: [id number] [birth year] : 1945 Acct:[id number] Age/Sex: 78 / F ADM Date: 05/23/24 Loc: [facility] Attending Dr: Jeff Carias MD Ordering Physician: Jeff Carias MD Results: 1Negativ e Date of Service: 05/23/24 Follow Up: 1 Year From Orig ina Mammogram Procedure(s): MM tomosynthesis screening BI Accession Number(s): [id number] cc: Jeff Carias MD EXAMINATION: MM SCREENING DIGITAL BREAST TOMOSYNTHESIS, BILATERAL CLINICAL INFORMATION: Screening. Asymptomatic. COMPARISON: Mammography: Compari son is made with available priors TECHNIQUE: Digital breast mammography with tomosynthesis is performed in both the craniocaudal and mediolateral oblique views along with computer-aided detection (CAD). FINDINGS: The breasts are heterogeneously dense, which may obscure small masses (ACR BI-RADS breast composition Category c). There are no significant masses, abnormal calcifications, or other abnormalities. MM/MM tomosynthesis screening BI IMPRESSION: No mammographic evidence of malignancy. ASSESSMENT: BI-RADS BI-RADS 1 - Negative RECOMMENDATION: Routine annual mammography screening. 1 year F/U This examination steve uld not preclude the clinical evaluation of a suspicious palpable abnormality. This patient's information was entered into a reminder system with a target due date for their next mammogram. Electronically hilda d by: Zayda James DO 05/31/2024 02:15 PM EDT RP Dictated By: Zayda James DO Signed By: <Electronically signed by Zayda James DO in OV> 05/31/24 1415 DD/ 4 TD/TT: 05/23/24 0940 Utility System Repairer: MAMMOGRAM DIGITAL BILATERAL SCREEN Reviewed date:06/05/2024 09:22:38 AM Interpretation:undefined Performing Lab: Notes/Report: undefined Complete Blood Count Auto Di ff Reviewed date:05/29/2024 09:04:39 AM Interpretation: Performing Lab:[facility], [address] [place] [address] Notes/Report: White Blood Count 6.0 4.8-10.8 X10*3/uL Red Blood Count 4.55 4.20-5.50 X10*6/uL Hemoglobin 12.6 12.0-16.0 g/dl Hematocrit 39.6 37.0-47.0 % Mean Corpuscular Volume 87.0 80.0-98.0 fL Mean Corpuscular Hemoglobin 27.7 27.0-33.0 pg Mean Corpuscular HGB Conc 31.8 31.0-35.0 g/dl Red Cell Distribution Width 13.5 11.0-16.0 % Platelet Count 347 160-400 X10*3/uL Mean Platelet Volume 8.8 9.4-12.3 fL Neutrophils Percent Auto 56.2 45-73 % Imm Gran Pct Auto 0.2 0.0-0.4 % Lymphocytes Percent Auto 34.3 20-40 % Monocytes Percent Auto 7.4 2-11 % Eosinophils Percent Auto 1.2 0-4 % Basophils Percent Auto 0.7 0-2 % NRBC Pct Auto 0.0 0.0-0.2 /100WBC Neutrophils Absolute Auto 3.4 2.0-8.3 x10*3/uL Imm Gran Abs Auto 0.01 0.00-0.03 X10*3/uL Lymphocytes Absolute Auto 2.0 1.2-4.9 X10*3/uL Monocytes Absolute Auto 0.4 0.1-1.2 X10*3/uL Eosinophils Absolute Auto 0.1 0.0-0.4 X10*3/uL Basophils Absolute Auto 0.0 0.0-0.2 X10*3/uL NRBC Abs Auto 0.000 0.0-0.012 X10*3/uL Comprehensive [place]. Panel Fa st Reviewed date:05/29/2024 09:04:39 AM Interpretation: Performing Lab:[facility], [address] [place] [phone] Notes/Report: Sodium 144 135-145 mmol/L Potassium 4.5 3.3-5.1 mmol/L Chloride 109 96-108 mmol/L Carbon Dioxide 27 22-29 mmol/L Anion Gap 13 12-20 Blood Urea Nitrogen 9 9-16 mg/dL Creatinine 0.74 0.5-1.4 mg/dL Estimated Glomerular Filt Rate > 60 Chronic Kidney Disease: Estimated GFR < 60 mL/min/1.73m2 Severe Kidney Disease: Estimated GFR < 15 mL/min/1.73m2 Glucose Fasting 91 60-99 mg/dL Calcium 9.1 8.4-10.2 mg/dL Bilirubin Total 0.5 0.0-1.0 mg/dL Aspartate Amino Transferase 19 5-31 U/L Alanine Aminotransferase 13 0-31 U/L Total Protein 7.3 6.5-8.0 g/dL Albumin Level 3.9 3.5-5.0 g/dL Alkaline Phosphatase 80 39-117 U/L Lipid Panel Reviewed date:05/29/2024 09:04:39 AM Interpretation: Performing Lab:[facility], [address] [place] [phone] Notes/Report: Triglycerides 253 <150 mg/dL Desirable Triglyceride: less than 150 mg/dL Borderline High Triglyceride 150-199 mg/dL High Triglyceride: 200-499 mg/dL Very High Triglyceride: greater than or equal to 5OO mg/dL Cholesterol 191 <200 mg/dL Desirable Cholesterol: less than 200 mg/dL Borderline High Cholesterol: 200-239 mg/dL High Cholesterol: greater than 239 mg/dL LDL Cholesterol Calculated 71 <100 mg/dL Desirable LDL: less than 100 mg/dL Near Optimal/Above Optimal LDL: 110-129 mg/dL Borderline High LDL: 130-159 mg/dL High LDL: 160-189 mg/dL Very High LDL: greater than or equal to 190 mg/dL HDL Cholesterol 70 >40 mg/dL Desirable HDL: greater than 40 mg/dL Note: This HDL assay may give artificially low results in patients with liver disease. Vitamin D 25-OH Total Reviewed date:05/29/2024 09:04:39 AM Interpretation: Performing Lab:[facility], [address] [place] [phone] Notes/Report: Vitamin D 25-OH Total 34.7 >30 ng/mL Health Based Reference Values* < 20 ng/mL Deficient 20-30 ng/mL Insufficient > 30 ng/mL Sufficient *Eve MATAMOROS. N Engl J Med. 2007;357:266-280 There is no well-established upper level of normal vitamin D levels. Some laboratories use 50 ng/mL as an upper limit of normal. However, toxicity is patient-dependent and may occur at any level. Careful correlation with the patient's presentation is necessary and, if there is concern for vitamin D toxicity, treatment should be considered irrespective of the serum level. Care must be taken in interpreting Vitamin D results from different laboratories and methodologies. Published data demonstrated that results from patients undergoing hemodialysis may show a negative bias when tested with various automated 25-OH vitamin D assays when compared to LC-MS/MS. When testing samples from patients whose predominant form of Vitamin D is Vitamin D2, such as patients receiving Vitamin D2 supplementation, results that are subtherapeutic should be confirmed with another method such as LC-MS/MS. Reason For Referral No Information Medications Medication SIG (Take, Route, Fr equency, Duration) Notes Start Date End Date Status Fish Oil 1200 MG 2 capsules Orally Once a day Active Vitamin D 2000 UNIT as directed Orally Active Multivitamins Orally Active Immunizations Vaccine Route Administration Date Status Comme nts COVID- 19 Vaccine Unknown 06/04/2020 Administered COVID- 19 Vaccine Unknown 05/27/2021 Administered COVID- 19 Vaccine Unknown 07/02/2020 Administered moder na SHINGRIX Unknown 08/31/2021 Administered SHINGRIX Unknown 11/01/2021 Administered COVID 19 Moderna Unknown 02/13/2021 Administered Tdap Unknown 09/01/2024 Administered Social History Tobacco Use: Social History [...] ast year? No Points 0 Interpretation Negative Problems Problem Type SNOMED Code ICD Code Onset Dates Problem Status W/U Status Risk Notes Problem 52698357 Hyperlipidemia (E78.5) Active confirmed Her total cholesterol 191. I recommended a diet low in animal fat. I recommended weight loss and regular exercise. Problem 70057057 Hypothyroidism (E03.9) Active confirmed She is currentl y euthyroid. Problem Diplopia (43603416) Diplopia (H53.2) Active confirmed She has had no further diplopia and this problem has resolved Problem 347763610 Osteopenia (M85.80) Active confirmed She has had no apparent fractures. She will continue on her current calcium tablets. Problem 673102125 Over weight (E66.3) Active confirmed Her weight is stable at 159 pounds and a body mass index 27. I recommend a gradual slow and steady weight loss of 1/2 pound per week through a diet restricted in calories. Problem 740180725 Hypertriglycerid emia (E78.1) Active confirmed Her triglycerid es are elevated. He says she is avoiding dietary sources of triglycerides and red meat. She will educate herself the dietary sources of lipids. I recommended that she is is 10 pounds over the next 6 months and have these values repeated in another office visit. She treated herself. Problem 65827834 Eczema (L30.9) Active confirmed Examination of the skin showed very little eczema today. This problem is inactive. Problem 39305892 Vitamin D defici ency (E55.9) Active confirmed Continued on he r vitamin D supplement. Problem 45542730 Crohns disease (K50.90) Active confirmed The Crohn's disease is controlled. She sees gastroenterology tomorrow. She is due for collonoscopy. Problem 949491537 Menopausal state (N95.1) Active confirmed She has not experienced any vaginal bleeding. Problem 697519260 Small bowel obstruction (K56.609) Active confirmed This r esolved over 24 hours a month ago. I strongly recommend that she have a colonoscopy as she is due and there was thickening of the small bowel terminal portion. She has declined saying she was not considered until next September. Vital Signs Heart Rate 72 /min 06/05/2024 Temperature 98.1 degrees Fahrenheit 06/05/2024 Blood pressure diastolic 70 mm Hg 06/05/2024 Height 63 in 06/05/2024 Blood pressure systolic 134 mm Hg 06/05/2024 Weight 144 lbs 06/05/2024 BMI 25.51 kg/m2 06/05/2024 Encounters Encounter Location Date Provider Diagnosis Jeff Carias III, MD [address] [place] [address] [place] [address] 12/29/2023 Jeff Carias Diplopia H53.2 ; Hypothyroidism E03.9 ; Cervical radiculopathy M54.12 ; Osteopenia M85.80 ; Hyperlipidemia E78.5 and Over weight E66.3 Jeff Carias III, MD [address] [place] [address] [place] [address] 01/29/2024 Jeff Carias Diplopia H53.2 ; Hypothyroidism E03.9 ; Hyperlipidemia E78.5 ; Vitamin D deficiency E55.9 ; Over weight E66.3 ; Osteopenia M85.80 and Crohns disease K50.90 Jeff Carias III, MD [address] [place] [address] [place] [address] 06/05/2024 Jeff Carias Diplopia H53.2 ; Ultra Sound Technician hns disease K50.90 ; Hypothyroidism E03.9 ; Hyperlipidemia E78.5 ; Menopausal state N95.1 ; Eczema L30.9 ; Osteopenia M85.80 ; Vitamin D deficiency E55.9 and Small bowel obstruction K56.609 Assessments Encounter Date Diagnosis (ICD Code) Assessment Notes Treatment Notes Treatment Clinical Notes 12/29/2023 Hypothyroidism (ICD-10 - E03.9) Her thyroid [...] diplopia and this problem has resolved 06/05/2024 Diplopia (ICD-10 - H53.2) She has had no further diplopia and this problem has resolved 06/05/2024 Crohns disease (ICD-10 - K50.90) The Crohn's disease is controlled. She sees gastroenterology tomorrow. She is due for collonoscopy. 12/29/2023 Cervical radiculopathy (ICD-10 - M54.12) The [...] change in her regimen was made today. 06/05/2024 Hypothyroidism (ICD-10 - E03.9) She is currently euthyroid. 12/29/2023 Osteopenia (ICD-10 - M85.80) She has had no apparent fractures. She will continue on her current calcium tablets. 01/29/2024 Vitamin D deficiency (ICD-10 - E55.9) Continued on her vitamin D supplement. 06/05/2024 Hyperlipidemia (ICD-10 - E78.5) Her total cholesterol 191. I recommended a diet low in animal fat. I recommended weight loss and regular exercise. 12/29/2023 Hyperlipidemia (ICD-10 - E78.5) Her lipids [...] week through a diet restricted in calories. 06/05/2024 Menopausal state (ICD-10 - N95.1) She has not experienced any vaginal bleeding. 12/29/2023 Over weight (ICD-10 - E66.3) Her weight is stable at 148 pounds and a body mass index 27. I recommend a gradual slow and steady weight loss of 1/2 pound per week through a diet restricted in calories. 01/29/2024 Osteopenia (ICD-10 - M85.80) She has had no apparent fractures. She will continue on her current calcium tablets. 06/05/2024 Eczema (ICD-10 - L30.9) Examination of the skin showed very little eczema today. This problem is inactive. 01/29/2024 Crohns disease (ICD-10 - K50.90) Her inflammatory bowel diseases tolerable unstable. She remains under the care of Dr. Steiner, her glove finisher Her last colonoscopy was in 2011 and was unremarkable except for the Crohn's disease. 06/05/2024 Osteopenia (ICD-10 - M85.80) She has [...] considered until next September. Plan Of Treatment Pending Test Test Name Order Date URINE DIP STICK 05/11/2020 PROFILE, FASTING (COMPREHENSIVE METABOLI C) 05/10/2019 PROFILE, FASTING (COMPREHENSIVE METABOLI C) 06/18/2019 PROFILE, FASTING (COMPREHENSIVE METABOLI C) 06/05/2024 PROFILE, FASTING (COMPREHENSIVE METABOLI C) 05/08/2018 PROFILE, FASTING (COMPREHENSIVE METABOLI C) 01/29/2024 PROFILE, FASTING (COMPREHENSIVE METABOLI C) 05/24/2021 PROFILE, FASTING (COMPREHENSIVE METABOLI C) 05/11/2020 PROFILE, FASTING (COMPREHENSIVE METABOLI C) 04/27/2017 PROFILE, RANDOM (COMPREHENSIVE METABOLIC ) 04/21/2016 LIPID PANEL 04/27/2017 LIPID PANEL 05/10/2019 LIPID PANEL 06/18/2019 LIPID PANEL 04/21/2016 LIPID PANEL 05/08/2018 LIPID PANEL 05/24/2021 LIPID PANEL 05/11/2020 FREE T4 (FT4) 05/11/2020 FREE T4 (FT4) 06/18/2019 TSH (THYROID STIMULATING HORMONE) 2020 TSH (THYROID STIMULATING HORMONE) 2024 TSH (THYROID STIMULATING HORMONE) 2019 CBC w DIFF 05/24/2021 CBC w DIFF 04/27/2017 CBC w DIFF 05/10/2019 CBC w DIFF 05/11/2020 CBC w DIFF 06/05/2024 CBC w DIFF 04/21/2016 CBC w DIFF 05/08/2018 CBC w DIFF 06/18/2019 VITAMIN D 25-OH TOTAL 05/24/2021 CBC WITH AUTO DIFF 01/29/2024 Lipid Panel 06/05/2024 Lipid Panel 01/29/2024 Vitamin D 25-OH Total 01/29/2024 Free T4 (Free Thyroxine) 06/05/2024 Next Appt Details Provider Name:Jeff Carias, 12/11/2024 10:30:00 AM, [address] [place] [address] [address], [place], [address], Provider Name:Jeff Carias, 06/06/2025 09:30:00 AM, [address] [place] [address] [address], [place], [address], Insurance Providers Payer Name Payer Address Payer Phone Subscriber Number Group Number Insured Name Patient Relationship to Insured Coverage Start Date Coverage End Date [facility] [address] [place] [phone] [id number] Oriana Hinds Self - patient is the insured Medical (General) History Medical History History ICD Code menopause Crohn's disease eczema hyperlipidemia hypothyroidism osteopenia Labyrinthitis July 2019 History of labyrinthitis Surgical History Surgery Date(Month/Year) dental extractions 07/2022 colonoscopy 2007 tubal ligation partial ileocolectomy T&A Hospitalization History Reason Date(Month/Year) No history
[2024-12-02 14:36] VITALS: BMI 25.9
[2024-12-04 06:53] VITALS: BP 121/72; PULSE 74; RESP 12; TEMP 36.6; O2SAT 97; BMI 25.4
[2024-12-04] MEDS: Lactated Ringers 1,000 ML 100 ML IVCONT (07:05)
--- NOTE | 2024-12-04 07:15 | HO.ANESPROP2 ---
Documented by User: Angy Garcia NP 12/03/24 09:20 HPI - Anesthesia Eval Consult details Narrative: 79 yr old female for colonoscopy Crohn's: no active symptoms or tx High triglycerides: >250 05/2024 PENDING SALE TO [facility] Past Medical History Medical History Partial small bowel obstruction Crohn's disease Surgical History Surgical History History of tonsillectomy and adenoidectomy Hx of hemorrhoidectomy H/O colonoscopy Hx of exploratory laparotomy History of appendectomy Social History Social History Household Members: Spouse Housing: House Do you presently have visiting nurse or other home services: No Alcohol intake: never Patient Tobacco Use Status: Never used Tobacco Use of substances other than those prescribed or required for medical reasons: No Have you been hit, kicked, punched, or otherwise hurt by someone within the past year? If so, by whom?: No Are you DNR?: No Advance Directives: No Advance Directives Information Provided: Yes Advance Directives Date on File: 07/02/23 Patient : No Poor oral hygiene: No service: No Meds Allergies Allergy/AdvReac Type Severity Reaction Status Date / Time No Known Allergies Allergy Verified 12/04/24 06:52 Home Medications ?Medication ?Instructions ?Recorded ?Confirmed ?Last Taken ?Type cholecalciferol (vitamin D3) 25 25 mcg PO DAILY 07/02/23 12/04/24 Unknown History mcg (1,000 unit) tablet (Vitamin D3) multivitamin 1 tab PO DAILY 07/02/23 12/04/24 Unknown History omega 8-kcn-pyz-fish oil 1,000 mg 1 - 2 cap PO DAILY 07/02/23 12/04/24 11/26/24 History (120 mg-180 mg) capsule (Fish Oil) Exam Height,Weight and Vital Signs: Height 5 ft 2.5 in Weight 65.317 kg Documented by User: Kelly Reed DO 12/04/24 07:17 PENDING SALE TO [facility] Past Medical History Medical History Partial small bowel obstruction Crohn's disease Family History Family history of problems with anesthesia: No Surgical History Surgical History History of tonsillectomy and adenoidectomy Hx of hemorrhoidectomy H/O colonoscopy Hx of exploratory laparotomy History of appendectomy History of Problems with Anesthesia: No Social History Social History Household Members: Spouse Housing: House Do you presently have visiting nurse or other home services: No Alcohol intake: never Patient Tobacco Use Status: Never used Tobacco Use of substances other than those prescribed or required for medical reasons: No Have you been hit, kicked, punched, or otherwise hurt by someone within the past year? If so, by whom?: No Are you DNR?: No Advance Directives: No Advance Directives Information Provided: Yes Advance Directives Date on File: 07/02/23 Patient : No Poor oral hygiene: No service: No Meds Allergies Allergy/AdvReac Type Severity Reaction Status Date / Time No Known Allergies Allergy Verified 12/04/24 06:52 Home Medications ?Medication ?Instructions ?Recorded ?Confirmed ?Last Taken ?Type cholecalciferol (vitamin D3) 25 25 mcg PO DAILY 07/02/23 12/04/24 Unknown History mcg (1,000 unit) tablet (Vitamin D3) multivitamin 1 tab PO DAILY 07/02/23 12/04/24 Unknown History omega 5-eor-ecm-fish oil 1,000 mg 1 - 2 cap PO DAILY 07/02/23 12/04/24 11/26/24 History (120 mg-180 mg) capsule (Fish Oil) Exam Exam Date and Time: 12/04/24 0710 Height,Weight and Vital Signs: Height 5 ft 2.5 in Weight 65.317 kg Vital Signs Temperature 97.8 F 12/04/24 06:53 Pulse Rate 74 12/04/24 06:53 Respiratory Rate 12 12/04/24 06:53 Blood Pressure 121/72 12/04/24 06:53 Pulse Oximetry 97 12/04/24 06:53 Oxygen Delivery Method Room Air 12/04/24 06:53 Temperature 97.8 F 12/04/24 06:53 Pulse Rate 74 12/04/24 06:53 Respiratory Rate 12 12/04/24 06:53 Blood Pressure 121/72 12/04/24 06:53 Pulse Oximetry 97 12/04/24 06:53 Oxygen Delivery Method Room Air 12/04/24 06:53 Airway Mallampati Class: II TM Dist: >3cm Neck ROM: Full Loose/Missing/Broken Teeth: Yes (missing molar) Heart: S1S2 Lungs: CTAB Assessment and Plan Assessment Anesthesia Assessment: Anesthesia Plan Discussed and Chart Reviewed Final Anesthetic Review Family History of Problems with Anesthesia: No History of Problems with Anesthesia: No NPO: Yes ASA Class: II Final Preanesthetic Review: No Changes in Pt Med Stat, Meds/Allgs Chart Reviewed, Consent Obtained/Reviewed and Anes Risks/Benef Reviewed Patient Risk: Low Procedure Risk: Low Anesthetic Plan Anesthetic Plan: MAC: and Agree w/ Assess. and Plan Disposition: Standard PACU
[2024-12-04 08:27] VITALS: BP 99/50; PULSE 52; RESP 16; TEMP 36.1; O2SAT 97
--- NOTE | 2024-12-04 08:37 | PM.OP ---
Brief Operative Note Date of Service: 12/04/24 Pre-op diagnosis: Crohn's, screening Post-op diagnosis: other (Anastomotic stricture, active Crohn's) Procedure: Colonoscopy to the anastomosis and SI with Balloon dilation from 10mm to 12mm t0 13.5mm Surgeon: Jeff Avila MD Anesthesia: MAC Was an Plastic Design Applier used for this Procedure?: No Estimated blood loss (mL): 2.0 Pathology: none sent Condition: stable Disposition: PACU
[2024-12-04 08:42] VITALS: BP 119/54; PULSE 60; RESP 18; TEMP 36.1; O2SAT 99
--- NOTE | 2024-12-04 09:34 | OP_ITS ---
DATE OF SERVICE: 12/04/2024 SURGEON: Jeff Avila MD INDICATIONS: The patient presents for evaluation of underlying Crohn's disease, as well as a history of colorectal cancer in her father and need for colorectal cancer screening. Full consent has been obtained from her for this, including risks of bleeding and perforation. Of note, I did not obtain specific consent for the balloon dilation on the exam, but based on the findings and her history of a previous obstruction I felt this was important to do today. PREOPERATIVE DIAGNOSIS: POSTOPERATIVE DIAGNOSIS: PROCEDURE PERFORMED: Colonoscopy to the ileocolic anastomosis and small bowel with balloon dilation of anastomotic stricture. ESTIMATED BLOOD LOSS: COMPLICATIONS: ANESTHESIA: Medication used, monitored anesthesia care. ASSISTANTS: SPECIMENS: PREOPERATIVE DIAGNOSES: History of Crohn's disease, family history of colon cancer, colorectal cancer screening. POSTOPERATIVE DIAGNOSES: History of Crohn's disease, family history of colon cancer, colorectal cancer screening, active Crohn's disease of distal small bowel, anastomotic stricture, diverticulosis, and internal hemorrhoids. DESCRIPTION OF PROCEDURE: The patient was placed in the left lateral decubitus position The digital rectal exam revealed no abnormalities or perianal disease. The Olympus video pediatric colonoscope was entered into the rectum and advanced easily to the level of the anastomosis. The anastomosis was visualized, but did appear definitely stenotic with some friability and some active Crohn's with some small ulcerations. There was no mass. I could not advance the scope past this. I was able to visualize the small bowel lumen beyond it, however. I did use a [employer] incremental colonic balloon dilator to dilate the anastomotic stricture from 10 mm to 12 mm to 13.5 mm at the recommended pressure for 60 seconds each. Post-dilation, there was definitely disruption of the stricture with heme. It was then easy to pass the scope past this into the distal small bowel, where I visualized active ulcerations consistent with Crohn disease. The scope was withdrawn from the small bowel and back into the colon. The region of the anastomosis otherwise appeared normal. The scope was slowly withdrawn assessing all mucosal surfaces carefully. Preparation was excellent. I did not visualize any sign of Crohn's disease in the colon, polyps, or any other abnormalities. There was a mild amount of sigmoid diverticulosis In the rectum, the scope was retroflexed visualizing internal hemorrhoids, but no other pathology. The rectal mucosa appeared normal. The scope was straightened and withdrawn from the patient. She tolerated the procedure well and was returned to the recovery area in stable condition. IMPRESSION: 1. Crohn's disease with anastomotic stricture, status post balloon dilation. 2. Diverticulosis. 3. Internal hemorrhoids. PLAN: Given today's findings, I would recommend she go back on Pentasa 1 g q.i.d. I shall send her a prescription for that. 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 She was advised not to use any fish oil for at least a week. She has been instructed to stay on a low-residue and low-roughage diet so as to hopefully avoid any obstructions at this level. I did not dilate any further today given the friability and the findings otherwise. She will be seen in followup in the office. If she remains asymptomatic then I do not think she would need any further dilation. She clearly has active Crohn's disease and therefore we may need to consider a biologic agent. This has been discussed with her . He advised me that she will typically minimizie her GI symptoms of the Crohn's and is always hesitant about using any medications. MD LUISA De Luna/FRANKIE / [id number] MTDD
== END 2024-12-04 09:43 | disposition home or self-care (01) ==
PROVIDERS: PCP Internal Medicine Medical Oncology; Visit Provider Internal Medicine
PROC: 0DJD8ZZ Inspection of Lower Intestinal Tract, Via Natural or Artificial Opening Endoscopic (ICD-10-PCS; CPT 45378; principal; 2024-12-04 07:30)
DX: Z12.11 Encounter for screening for malignant neoplasm of colon (principal); K91.30 Postprocedural intestinal obstruction, unspecified as to partial versus complete; K57.30 Diverticulosis of large intestine without perforation or abscess without bleeding; K50.018 Crohn's disease of small intestine with other complication; K64.8 Other hemorrhoids; Z80.0 Family history of malignant neoplasm of digestive organs; Y83.2 Surgical operation with anastomosis, bypass or graft as the cause of abnormal reaction of the patient, or of later complication, without mention of misadventure at the time of the procedure; Y92.9 Unspecified place or not applicable
CPT/HCPCS: 45386; C1726; J2704